=== PATIENT | male | born 1950 | race Caucasian/White ===

== ENCOUNTER → 2020-12-04 09:38 | Outpatient (CLI) | payer MEDICARE, SELFPAY ==
--- NOTE | ~2020-12-04 | US_ITS ---
EXAMINATION: US abdomen limited EXAM DATE: 12/04/2020 10:02 INDICATION: R94.5 - Abnormal results of liver function studies. TECHNIQUE: Multiple grayscale and Doppler images of the abdomen right upper quadrant were obtained (b y a technologist who performed the scan) and subsequently reviewed. Comparison is made to prior exami nation from 02/21/2012. FINDINGS: The pancreatic head and body are normal in appearance. The pancreatic tail is not visualized. Mildl y echogenic liver parenchyma, hepatic steatosis. There are no focal liver lesions identified. Ther e is no evidence of intrahepatic biliary duct dilation. Portal venous flow was seen in the hepatoped al, normal direction and has normal Doppler waveform. No right-sided hydronephrosis. Common bile duct measures 5 mm, which is normal. The gallbladder wall is normal in thickness, with ex pected amount of distention. No sonographic evidence of pericholecystic fluid. There is no cholelit hiases. Technologist performing exam reports patient did not demonstrate sonographic Acuña's sign. Please note that this sign is less reliable in patients who have received pain medication. IMPRESSION: 1. Hepatic steatosis. Reviewed, dictated and finalized at location B. MEL CANDY MAKER HELPER IMPRESSION: 1. Hepatic steatosis.
== END ==
PROVIDERS: PCP Family Medicine; Visit Provider Family Medicine
DX: K76.0 Fatty (change of) liver, not elsewhere classified (principal)
CPT/HCPCS: 76705

== ENCOUNTER 2021-03-15 07:45 | Outpatient (CLI) | payer MEDICARE, SELFPAY ==
--- NOTE | ~2021-03-15 | CT_ITS ---
EXAMINATION: CT abdomen pelvis w con EXAM DATE: 03/15/2021 08:39 INDICATION: Prostate cancer. TECHNIQUE: Spiral CT of the abdomen and pelvis was performed following intravenous injection of 100 m L Omnipaque 350. Axial, coronal and sagittal images of the abdomen and pelvis were reviewed. The do se-length product (DLP) for this examination was 896.83 mGy-cm. The exposure was tailored according to patient size (auto mA exposure control), and iterative reconstruction (ASIR) was used as additiona l dose reduction technique. There is no prior study for comparison. FINDINGS: There are a couple of mildly enlarged upper retroperitoneal lymph nodes, up to 1.2 x 1.3 cm . These could be reactive but there is possibility of metastatic disease or lymphoma. The liver, sple en, adrenal glands and pancreas are unremarkable. Gallbladder is unremarkable. No biliary obstructi on. Portal and splenic veins are patent. Kidneys enhance symmetrically. There is no hydronephrosis . There are 4 mm right nephrolithiasis, and 3 mm left nephrolithiasis. No ureteral stones. Prostate measures 5.7 cm in transverse dimension, moderately enlarged. The bladder is severely distended. Cons ider pre and post void pelvic sonogram. The bladder is unremarkable. Small bilateral inguinal fat-co ntaining hernias. The appendix is normal. There is extensive sigmoid, moderate descending colonic diverticulosis. Ther e is no adjacent inflammatory change to suggest diverticulitis. The stomach and small bowel are unrem arkable. There is expected amount of colonic stool. No free intraperitoneal gas. The heart is no rmal in size. There are no pericardial or pleural effusions. The lung bases are unremarkable. Ther e are no osteoblastic or osteolytic lesions identified. IMPRESSION: 1. Two mildly enlarged upper retroperitoneal lymph nodes could be reactive but metastatic disease or lymphoma not excludable. Attention to these on follow-up CT. 2. Severely distended bladder, consider pre and post void pelvic sonogram. 3. Moderate prostatomegaly. 4. Colonic diverticulosis. 5. Bilateral nephrolithiasis. 6. Small inguinal hernias. Reviewed, dictated and finalized at location A.
[2021-03-15 08:26] LABS: Estimated Glomerular Filt Rate > 60
== END 2021-03-15 07:46 | disposition home or self-care (01) ==
PROVIDERS: PCP Family Medicine; Visit Provider Urology
DX: C61 Malignant neoplasm of prostate (principal); N20.0 Calculus of kidney; K40.90 Unilateral inguinal hernia, without obstruction or gangrene, not specified as recurrent; K57.30 Diverticulosis of large intestine without perforation or abscess without bleeding
CPT/HCPCS: 74177; Q9967

== ENCOUNTER 2021-08-20 08:03 | Outpatient (CLI) | payer MEDICARE, SELFPAY ==
--- NOTE | ~2021-08-20 | MR_ITS ---
EXAMINATION: MR pelvis wo/w con DATE: 08/20/2021 09:31 INDICATION: Prostate cancer TECHNIQUE: Magnetic resonance imaging (MRI) of the pelvis was performed without and with 20 mL Multih ance intravenous contrast. Fullfield sequences of the pelvis included axial and coronal T2-weighted S S FSE, axial, sagittal and coronal 2D FIESTA, axial 2D FIESTA FS, axial SSFSE-IR LINDA, axial dual-echo T1-weighted FSPGR, axial and coronal T1 weighted LAVA, 3D axial T2 Cube, axial diffusion-weighted SE with apparent diffusion coefficient (ADC) maps. Postcontrast sequences included a time course axial T1-weighted LAVA and sagittal and coronal T1-weighted LAVA. COMPARISON: CT dated 03/15/2021 FINDINGS: Prostatomegaly measuring 6.1 x 3.7 x 5.1 cm with the intact-appearing peripheral capsule . There is a loculated collection of T2 hyperintense hydrocele positioned between the posterior margin of the pro state in the anterior margin of the rectum. This measures 5.4 cm craniocaudally, to 3.6 cm medial to lateral and 1.4 cm AP above level of the prostate tapering to a point at the inferior margin of the p rostate and measuring approximately 6 mm AP at the level of the midpoint of the prostate. No abnormal masses or pathologically enlarged lymphadenopathy in the visualized pelvis or inguinal regions. Bila teral small fat-containing inguinal hernias. Bladder is distended with minimal trabeculation along th e mucosal surface. Normal bone marrow signal throughout. IMPRESSION: 1. 5.4 x 3.6 x 1.4 cm collection of hydrocele located between the enlarged prostate in the anterior m argin of the rectum as detailed above. 2. No evident metastatic disease. Reviewed, dictated and finalized at location A. IMPRESSION: 1. 5.4 x 3.6 x 1.4 cm collection of hydrocele located between the enlarged pros liu in the anterior margin of the rectum as detailed above. 2. No evident metastatic disease.
[2021-08-20 08:34] LABS: Estimated Glomerular Filt Rate > 60
== END 2021-08-20 08:04 | disposition home or self-care (01) ==
LOC: ANHIMG 08:04
PROVIDERS: PCP Internal Medicine; Visit Provider Radiology Radiation Oncology
DX: C61 Malignant neoplasm of prostate (principal)
CPT/HCPCS: 72197; A9577

== ENCOUNTER 2022-05-24 08:21 | Outpatient (CLI) | payer MEDICARE, SELFPAY ==
[2022-05-24 09:07] LABS: Alanine Aminotransferase 117 U/L (6-50); Albumin Level 4.5 g/dL (3.5-5.1); Alkaline Phosphatase 63 U/L (38-126); Anion Gap 8 mmol/L (8-16); Aspartate Amino Transferase 88 U/L (17-59); Bilirubin,Total 1.2 mg/dL (0.2-1.3); Blood Urea Nitrogen 17 mg/dL (9-20); Calcium 9.4 mg/dL (8.4-10.2); Carbon Dioxide 29 mmol/L (22-30); Chloride 100 mmol/L (98-107); Cholesterol 223 mg/dL (0-200); Estimated Glomerular Filt Rate > 60; Glucose 110 mg/dL (65-110); HDL Direct 63 mg/dL; Potassium 4.6 mmol/L (3.4-5.0); Sodium 137 mmol/L (137-145); Triglycerides 125 mg/dL (<150)
[2022-05-24 09:18] LABS: LDL Cholesterol Direct 119 mg/dL
== END 2022-05-24 08:22 | disposition home or self-care (01) ==
LOC: ANHLAB 08:23
PROVIDERS: PCP Internal Medicine; Visit Provider Internal Medicine
DX: G40.909 Epilepsy, unspecified, not intractable, without status epilepticus (principal); Z13.6 Encounter for screening for cardiovascular disorders; R79.89 Other specified abnormal findings of blood chemistry; Z13.220 Encounter for screening for lipoid disorders; K75.81 Nonalcoholic steatohepatitis (NASH)
CPT/HCPCS: 36415; 80053; 80061; 80177; 82728

== ENCOUNTER 2023-03-14 00:41 | Day surgery (SDC) | payer MEDICARE, SELFPAY ==
[2023-03-03 10:48] VITALS: BMI 28.2
--- NOTE | 2023-03-13 13:41 | WPDANESEPPF ---
Anes - Initial Pre Proc Eval Procedure: Operation Date: 03/14/23 07:30 Proposed Procedures p Colonoscopy - Yonatan Duran MD Date/Time: 03/13/23 13:41 Surgeon: Yonatan Duran MD Pre Op Diagnosis: hx of prostate ca Patient Data Age: 72 Gender: M Height: 1.85 m Weight: 97 kg Allergies Allergy/AdvReac Type Severity Reaction Status Date / Time Penicillins Allergy Severe Anaphylactic Verified 03/14/23 06:24 Shock Home Medications Medication Instructions Recorded Confirmed Type diphenoxylate-atropine 2.5 1 tablet PO EVERY OTHER DAY 09/29/22 03/14/23 History mg-0.025 mg tablet lamotrigine 100 mg tablet 100 mg PO BID 03/03/23 03/14/23 History Patient hx anesthesia problems: none Family hx anesthesia problems: none Results Review: All pre-operative results and documents have been reviewed as part of the pre-operative evaluation. [facility] Past Medical History Medical History (Updated 01/26/23 @ 11:08 by Roger Burgos MD) Annual physical exam Elevated liver enzymes Encounter for general adult medical examination without abnormal findings Establishing care with new doctor, encounter for Hx of malignant neoplasm of prostate Immunization due BUSTOS (nonalcoholic steatohepatitis) Obesity (BMI 30.0-34.9) Prostate cancer Screening for colon cancer Screening for malignant neoplasm of colon Screening for malignant neoplasm of prostate Seizure disorder (~2016) Seizure disorder Family History Family History Mother Diabetes mellitus Sibling Family history of cardiovascular disease Father Family history of kidney disease Social History Social History (Updated 01/26/23 @ 09:02 by Abbie Langford, RT(R)) Smoking packs per day: 1 Smoking cigarettes per day: 20.0 Years smoked: 10 Smoking pack-years: 10.00 Smoking status: Former smoker Tobacco type: cigarettes Second hand tobacco smoke exposure: No Smoking end date: 10/30/76 Alcohol intake: current Drinks per week: 3 Alcohol use details: rare Substance use: never Substance use type: does not use Living arrangements: with family Occupation/Education: retired Additional occupation/education comments: [employer] work Gender identity (if verbalized by the patient): Male Spiritual care concerns: No Agree to blood products: Yes Anes - Eval Final PreProcedure Day of Procedure 03/13/23 13:41 Patient weight: overweight Heart: regular rate and rhythm Lungs: clear to auscultation and normal air movement Airway: Mallampati scale class II Neurological: alert and oriented Last oral intake: >/= 8 hours ASA classification: III Emergent: no Anesthetic plan: proceed Anesthesia type and monitoring: general GIVS Results Review: All pre-operative results and documents have been reviewed as part of the pre-operative evaluation. Informed Consent: The patient's anesthetic plan and its attendant risks and benefits were discussed with the patient/family/POA. Questions were solicited and answers provided to the satisfaction of the patient/family/POA.
[2023-03-14 06:25] VITALS: BP 145/81; PULSE 70; RESP 16; TEMP 36.4; O2SAT 100; BMI 27.8
[2023-03-14] MEDS: LACTATED RINGERS 1,000 ML 150 ML IV CONT (06:34)
--- NOTE | 2023-03-14 07:44 | PM.HPGS ---
History of Present Illness History of Present Illness Consent: Risks, benefits, and alternatives have been discussed and questions answered. Patient agrees to proceed with procedure. Chief complaint: hx of prostate ca Narrative: Yang Rosado is a 72 year old male Presents for screening colonoscopy. Patient reports prior colonoscopy 10 years ago showed a benign hyperplastic colon polyp. Patient has a history of prostate cancer with radiation therapy 2 years ago. He did have loose stools. This apparently controlled with Lomotil 1 tab p.o. daily. Patient denies any bleeding. Patient's family history noncontributory. Past medical history is significant for stage fatty liver for which she is followed at [facility] hepatology. Patient has a history of seizure disorder which is stable. Family history is noncontributory. Review of Systems Review of Systems: Review of systems noncontributory. [facility] Past Medical History Medical History (Updated 01/26/23 @ 11:08 by Roger Burgos MD) Annual physical exam Elevated liver enzymes Encounter for general adult medical examination without abnormal findings Establishing care with new doctor, encounter for Hx of malignant neoplasm of prostate Immunization due BUSTOS (nonalcoholic steatohepatitis) Obesity (BMI 30.0-34.9) Prostate cancer Screening for colon cancer Screening for malignant neoplasm of colon Screening for malignant neoplasm of prostate Seizure disorder (~2015) Seizure disorder Family History Family History Mother Diabetes mellitus Sibling Family history of cardiovascular disease Father Family history of kidney disease Social History Social History (Updated 01/26/23 @ 09:02 by Abbie Langford, RT(R)) Smoking packs per day: 1 Smoking cigarettes per day: 20.0 Years smoked: 10 Smoking pack-years: 10.00 Smoking status: Former smoker Tobacco type: cigarettes Second hand tobacco smoke exposure: No Smoking end date: 10/30/76 Alcohol intake: current Drinks per week: 3 Alcohol use details: rare Substance use: never Substance use type: does not use Living arrangements: with family Occupation/Education: retired Additional occupation/education comments: [employer] work Gender identity (if verbalized by the patient): Male Spiritual care concerns: No Agree to blood products: Yes Meds Home Medications and Allergies Home Medications Medication Instructions Recorded Confirmed Type diphenoxylate-atropine 2.5 1 tablet PO EVERY OTHER DAY 09/29/22 03/14/23 History mg-0.025 mg tablet lamotrigine 100 mg tablet 100 mg PO BID 03/03/23 03/14/23 History Allergies Allergy/AdvReac Type Severity Reaction Status Date / Time Penicillins Allergy Severe Anaphylactic Verified 03/14/23 06:24 Shock Vital Signs Vital Signs - 24 hr 03/14/23 06:25 Temperature 97.5 F L Pulse Rate 70 Respiratory Rate 16 Blood Pressure 145/81 H Pulse Oximetry 100 Oxygen Delivery Room Air Exam Narrative: Physical exam reveals patient to be alert. Vital signs stable. HEENT exam is unremarkable. Patient is anicteric. Lungs are clear to auscultation and percussion. Heart is without murmur or extra sounds. Abdomen bowel sounds present soft nontender with no hepatosplenomegaly. Digital external rectal exam is normal. Assessment and Plan Assessment and plan (1) Screening for colon cancer: Code(s): Z12.11 - Encounter for screening for malignant neoplasm of colon Status: Acute Assessment and Plan: Patient presents for screening colonoscopy. He has been 10 years since last exam. Patient does have a history of prostate cancer with radiation and subsequent loose stools attributed to this. Currently controlled with 1 Lomotil a day. Under the direction of Urology. Distant history of colon polyp 10 years ago was benign aside from 1 arielle
[2023-03-14 07:47] VITALS: BP 123/70; PULSE 60; RESP 20; O2SAT 98
[2023-03-14 07:57] VITALS: BP 124/75; PULSE 57; RESP 19; O2SAT 100
[2023-03-14 08:07] VITALS: BP 129/72; PULSE 57; RESP 24; O2SAT 100
--- NOTE | 2023-03-14 08:26 | SUR.PHASEII ---
Discharge delayed due to ride issues.
== END 2023-03-14 08:25 | disposition home or self-care (01) ==
PROVIDERS: PCP Internal Medicine; Visit Provider Internal Medicine Gastroenterology
PROC: 0DJD8ZZ Inspection of Lower Intestinal Tract, Via Natural or Artificial Opening Endoscopic (ICD-10-PCS; CPT 45378; principal; 2023-03-14 07:30)
DX: Z12.11 Encounter for screening for malignant neoplasm of colon (principal); K64.8 Other hemorrhoids; K57.30 Diverticulosis of large intestine without perforation or abscess without bleeding; K62.89 Other specified diseases of anus and rectum; Z85.46 Personal history of malignant neoplasm of prostate; K75.81 Nonalcoholic steatohepatitis (NASH); G40.909 Epilepsy, unspecified, not intractable, without status epilepticus; Z87.891 Personal history of nicotine dependence
CPT/HCPCS: G0121; J2704; J7120

== ENCOUNTER 2023-07-04 10:46 | Emergency (ER) | payer MEDICARE, SELFPAY ==
[2023-07-04 10:40] VITALS: BP 201/85; PULSE 23; RESP 23; TEMP 36.7; O2SAT 94
[2023-07-04] MEDS: LORazepam INJ (*CRX) 2 MG/ML VIAL IM (10:52)
[2023-07-04] MEDS: HALOPERIDOL LACTATE 5 MG/ML VIAL IM (10:52)
[2023-07-04 11:15] VITALS: BP 164/85; PULSE 123; RESP 20; O2SAT 97
--- NOTE | 2023-07-04 11:15 | PC.NURSE ---
pts at bedside upset that pt is restrained. pt remains thrashing on bed. continues rambling speech. remains unable to answer simple questions. charge nurse at bedside.
[2023-07-04 12:06] LABS: Basophils Absolute Auto 0.1 K/mm3 (0.0-0.1); Basophils Percent Auto 1.3 % (0.2-1.2); Eosinophils Percent Auto 0.3 % (0-4.4); Hematocrit 42.3 % (42.0-52.0); Hemoglobin 14.4 g/dL (14.0-18.0); Immature Granulocyte Absolute 0.03 K/mm3 (0.00-0.031); Immature Granulocyte Percent A 0.4 % (0-0.5); Lymphocytes Absolute Auto 0.99 K/mm3 (0.9-3.2); Lymphocytes Percent Auto 13.1 % (18.3-44.2); Mean Corpuscular Volume 96.8 fl (80-100); Mean Platelet Volume 9.5 fl (7.4-10.4); Monocytes Absolute Auto 0.8 K/mm3 (0.1-0.6); Monocytes Percent Auto 10.6 % (2.6-8.5); Neutrophils Absolute Auto 5.6 K/mm3 (1.3-6.7); Neutrophils Percent Auto 74.3 % (45.5-73.1); Platelet Count Result 153 k/mm3 (150-375); Red Blood Count 4.37 M/mm3 (4.6-6.20); Red Cell Distribution Width 12.5 % (11.5-14.5); White Blood Count 7.6 K/mm3 (4.5-10.0)
[2023-07-04 12:19] LABS: Albumin Level 4.4 g/dL (3.5-5.1); Alkaline Phosphatase 69 U/L (38-126); Anion Gap 12 mmol/L (8-16); Aspartate Amino Transferase 97 U/L (17-59); Bilirubin,Total 1.2 mg/dL (0.2-1.3); Blood Urea Nitrogen 21 mg/dL (9-20); Calcium 9.1 mg/dL (8.4-10.2); Carbon Dioxide 21 mmol/L (22-30); Chloride 103 mmol/L (98-107); Creatine Kinase 401 U/L (55-170); Estimated CRCL calculation 81 ml/min; Estimated Glomerular Filt Rate > 60; Glucose 160 mg/dL (65-110); Magnesium 2.3 mg/dL (1.6-2.3); Potassium 4.8 mmol/L (3.4-5.0); Sodium 136 mmol/L (137-145)
--- NOTE | 2023-07-04 12:19 | ED.AMS ---
HPI - Altered Mental Status General Chief Complaint: Altered Mental Status Stated Complaint: seizures, combative Time Seen by Provider: 07/04/23 10:56 History of Present Illness HPI narrative: HPI limited due to patient's altered mental status This is a 72-year-old male, with past history of seizure disorder on lamotrigine, brought in by EMS for seizure-like activity and altered mental status. EMS reports the patient had a seizure at home. He had a recent change in his lamotrigine dose. The patient was reportedly combative with EMS. Blood glucose reported at home 101. Related Data Home Medications Medication Instructions Recorded Confirmed diphenoxylate-atropine 2.5 1 tablet PO EVERY OTHER DAY 09/29/22 06/08/23 mg-0.025 mg tablet lamotrigine 100 mg tablet 100 mg PO BID 03/03/23 06/08/23 Allergies Allergy/AdvReac Type Severity Reaction Status Date / Time Penicillins Allergy Severe Anaphylactic Verified 06/08/23 09:54 Shock Review of Systems Review of Systems: Unable to obtain review of systems due to altered mental status PMFSH Past Medical History Medical History Annual physical exam Elevated liver enzymes Encounter for general adult medical examination without abnormal findings Establishing care with new doctor, encounter for Hx of malignant neoplasm of prostate Immunization due Impacted cerumen of both ears BUSTOS (nonalcoholic steatohepatitis) Obesity (BMI 30.0-34.9) Prostate cancer Screening for colon cancer Screening for malignant neoplasm of colon Screening for malignant neoplasm of prostate Seizure disorder (~2015) Seizure disorder Family History Family History Mother Diabetes mellitus Sibling Family history of cardiovascular disease Father Family history of kidney disease Social History Social History Social History: Caffeine-coffee daily Smoking packs per day: 1 Smoking cigarettes per day: 20.0 Years smoked: 10 Smoking pack-years: 10.00 Smoking status: Former smoker Tobacco type: cigarettes Second hand tobacco smoke exposure: No Smoking end date: 10/30/76 Alcohol intake: current Alcohol use details: rare Substance use: never Substance use type: does not use Lack of Transportation: No Lack of Food: Never True Current Housing: I Have Housing Concerned About Future Housing: No Difficulty Paying Gas/Electric Bills: No Difficulty Paying for Meds: No Currently Unemployed: No Education: High School Diploma/GED Difficulty w/ Childcare or Family Care: No Living arrangements: with family Occupation/Education: retired Additional occupation/education comments: [employer] work Gender identity (if verbalized by the patient): Male Spiritual care concerns: No Agree to blood products: Yes Exam Narrative: GENERAL: Well-developed, well-nourished, combative HEAD: Normocephalic, atraumatic. EYES: PERRLA and EOMI. ENT: Nares clear, no rhinorrhea or epistaxis. Mucous membranes moist. Oropharynx without tonsillar hypertrophy exudate or other lesions. CHEST: Clear to auscultation. No respiratory distress. No wheezes rales or rhonchi HEART: Tachycardic and regular rhythm. No murmur heard. Normal peripheral pulses. ABDOMEN: Soft, nontender, nondistended, normal active bowel sounds. EXTREMITIES: Normal range of motion. No edema. SKIN: Warm, dry, no rash. NEURO: Alert, oriented to self, agitated. Moving all 4 limbs purposefully. PSYCH: Agitated and combative Course Course Emergency Course: 15:01 - Chemistries within normal limits with sodium of 136. CBC unremarkable. After Haldol and Ativan, the patient is no longer combative and is oriented x3. Creatinine kinase elevated to 401. The patient was given IV fluids. He was given Keppra and lamotrigine. Will
[2023-07-04 12:25] LABS: Alanine Aminotransferase 99 U/L (6-50)
[2023-07-04] MEDS: SODIUM CHLORIDE 0.9% IV 1,000 ML 999 ML IV CONT (12:32)
--- NOTE | 2023-07-04 13:00 | PC.NURSE ---
pt resting quietly on stretcher with and son at bedside. no distress noted. pt provided with warm blanket and room darkened for comfort.
[2023-07-04 16:11] VITALS: PULSE 88; RESP 16; O2SAT 96
[2023-07-06 14:28] LABS: Lamotrigine Lamictal 4.1 mcg/mL (2.5-15.0)
== END 2023-07-04 16:13 | disposition home or self-care (01) ==
PROVIDERS: Emergency Provider Preventive Medicine Aerospace Medicine; PCP Emergency Medicine
DX: R56.9 Unspecified convulsions (principal); R94.4 Abnormal results of kidney function studies; Z87.891 Personal history of nicotine dependence
CPT/HCPCS: 36415; 80053; 80175; 82550; 83735; 85025; 96361; 96372; 96374; 99284; J1630; J1953; J2060; J7030

== ENCOUNTER 2023-12-06 06:56 | Outpatient (CLI) | payer MEDICARE, SELFPAY ==
--- NOTE | ~2023-12-06 | XR_ITS ---
EXAMINATION: XR hip LT min 2V INDICATION: Left hip pain TECHNIQUE: Two views of the left hip are obtained. COMPARISON: None available FINDINGS: Bone alignment is normal. There is no fracture. There is mild osteoarthritis of the hip. Th e femoral head is well-seated in the acetabulum. IMPRESSION: 1. Mild osteoarthritis. Reviewed, dictated and finalized at location B. ASSESSOR IMPRESSION: 1. Mild osteoarthritis.
--- NOTE | ~2023-12-06 | XR_ITS ---
EXAMINATION: XR lumbar spine 2-3V DATE: 12/06/2023 07:27 INDICATION: Low back pain with sciatica TECHNIQUE: Anteroposterior and lateral views of the lumbar spine, and cone-down lateral view of the l umbosacral junction were obtained. COMPARISON: 03/15/2021 FINDINGS: The lumbar vertebral body heights and alignment are maintained. There is mild loss of inter vertebral disc space height at L5-S1. No lumbar spine fracture is identified. There is cortical irreg ularity at the anterior/inferior aspect of the S1 vertebral body. IMPRESSION: 1. Mild lumbar spondylosis. 2. Possible minimally displaced fracture at S1. Consider further evaluation with CT or MRI. Reviewed, dictated and finalized at location B. SETTER IMPRESSION: 1. Mild lumbar spondylosis. 2. Possible minimally displaced fracture at S1. Consider further evaluation wit h CT or MRI.
== END 2023-12-06 06:57 | disposition home or self-care (01) ==
PROVIDERS: PCP Nurse Practitioner Family; Visit Provider Nurse Practitioner Family
DX: M54.42 Lumbago with sciatica, left side (principal); M43.06 Spondylolysis, lumbar region; M16.12 Unilateral primary osteoarthritis, left hip
CPT/HCPCS: 72100; 73502

== ENCOUNTER 2023-12-17 07:28 | Outpatient (CLI) | payer MEDICARE, SELFPAY ==
--- NOTE | ~2023-12-17 | MR_ITS ---
MRI of the lumbar spine Clinical History: Sacral fracture Technique: Axial T2-weighted images, and sagittal T1-weighted, T2-weighted, and T2 fat-sat images wer e acquired. Findings: Lumbar vertebral bodies maintain normal height and alignment. There are probable bilateral sacral insufficiency fractures with extension across the midline sacrum at the S1 and S2 levels. At L1-L2, there is minimal disc bulge and mild facet arthropathy. No central canal stenosis or neural foraminal narrowing. At L2-L3, there is minimal disc bulge and mild facet arthropathy. No central canal stenosis or neural foraminal narrowing. At L3-L4, there is mild disc bulge and mild to moderate facet arthropathy. No central canal stenosis or definite neural foraminal narrowing. At L4-L5, there is mild disc bulge and mild to moderate facet arthropathy. No central canal stenosis. There is mild bilateral neural foraminal narrowing. At L5-S1, there is disc bulge and mild to moderate facet arthropathy. No central canal stenosis or de finite neural foraminal narrowing. Paravertebral soft tissues are unremarkable. Impression: H-shaped insufficiency fractures of the sacrum, as detailed above. Minimal lumbar degenerative spondylosis. Reviewed, dictated and finalized at [facility]. TRUSS BUILDER Impression: H-shaped insufficiency fractures of the sacrum, as detailed above. Minimal lumbar degenerative spondylosis.
== END 2023-12-17 07:29 | disposition home or self-care (01) ==
PROVIDERS: PCP Nurse Practitioner Family; Visit Provider Nurse Practitioner Family
DX: S32.10XA Unspecified fracture of sacrum, initial encounter for closed fracture (principal); X58.XXXA Exposure to other specified factors, initial encounter
CPT/HCPCS: 72148

== ENCOUNTER 2024-01-08 10:00 | Outpatient (RCR) | payer MEDICARE, SELFPAY ==
--- NOTE | 2023-12-12 15:04 | OPREHPOC ---
Outpatient Therapy Plan of Care This is a Multidisciplinary Plan of Care that may contain components documented by all disciplines (PT, OT, and ST.) PT Problem 1 PT Problem #1 Knowledge Deficit PT Goal 1 Goal Pt to be IND with issued HEP Target Visit 8 PT Problem 2 PT Problem #2 Pain PT Goal 1 Goal Pt to report back pain no greater than 3/10 in the last week. Target Visit 8 PT Goal 2 Goal Pt to report 75% improvement in overall symptoms. Target Visit 8 PT Problem 3 PT Problem #3 Impaired Sensation PT Goal 1 Goal Pt to decline radicular symptoms in the last week. Target Visit 8 PT Problem 4 PT Problem #4 Impaired Gait PT Goal 1 Goal Pt to ambulate on level ground without the need for an AD Target Visit 8 PT Goal 2 Goal Pt to improve 2 min walk distance from 380ft to 450ft. Target Visit 8 PT Problem 5 PT Problem #5 Impaired Strength PT Goal 1 Goal Pt to improve hip abduction strength to 3+/5 Target Visit 8
--- NOTE | 2023-12-12 15:04 | PTOPEVAL1 ---
Assessment and note entered by Lauro Crooks, PT, DPT Evaluation Information Assessment Status Evaluation Diagnosis L sided lumbar radiculopathy Onset 2 weeks Subjective Information Pt states 2 weeks ago he gradually started to get pain, numbness, and tingling down the back of his L leg. Pt reports he is having difficultly driving , getting in/out of the shower, getting dressed, putting shoes on, and sitting for any period of time. Pt stands throughout evaluation. Reported Pain Level Pain Score 8: Self Report Assessment PT Clinical Summary Yang presents to therapy today for his initial evaluation with a diagnosis of L sided lumbar radiculopathy. Today he demonstrates symptoms consistent with L sided piriformis syndrome including a positive slump test, tenderness to palpation on the piriformis muscle belly, and weakness of the hip abductors. He ambulates with an antalgic pattern and with lumbar extension to limit neural tension. Skilled therapy services are indicated to address the deficits noted above, to manage pain, to improve gait pattern, and to return to PLOF without limitations. Plan of Care Interventions Electrical Stimulation,Gait Training,Hot Pack/Cold Pack,Manual Therapy,Neuro Re-education,Patient/ Caregiver Educati,Therapeutic Activities, Therapeutic Exercise PT Services Indicated Yes Treatment Frequency and 2x/wk for 8 visits Duration These treatments will address the objective and functional deficits as defined above. The patient will be advanced safely and appropriately in order for the patient to progress towards his/her prior level of function. Additional exercises will be introduced and as well as a comprehensive home exercise program upon discharge, if needed, ?to ensure carryover of functional gains achieved in the clinic. This treatment plan has been reviewed and agreement upon by the patient.
--- NOTE | 2023-12-29 08:25 | PCPTNOTE ---
Patient no showed to appointment this date. Called and spoke with patient who states he didn't know he had an appointment. Confirmed future appointment on december 31 at 10:15 with patient.
--- NOTE | 2024-01-03 08:39 | PCPTNOTE ---
Patient left messege to cancel, no reason given.
--- NOTE | 2024-01-08 12:57 | PTOPPROG ---
Assessment and note entered by Lauro Crooks, PT, DPT Evaluation Information Assessment Status Progress Diagnosis L sided lumbar radiculopathy Onset 2 weeks Subjective Information Pt states overall things are going a lot better than expected. He has not had to take any pain medication for the last 2 days and has been good so far. Pt states he has been able to do 3, 1 mile walks in the last week. He states his distance driving does not seem limited. Pt reports pain more isolated to his L hamstring. He states he is no longer getting consistent pain. Assessment PT Clinical Summary Yang presents to therapy today for his progress report following 6 visits of skilled therapy to treat his diagnosis of L sided lumbar radiculopathy. Today he demonstrates improved LE strength, improved flexibility, decreased tenderness to palpation, and approximation of radicular symptoms. He continues to require cues for posture and movement mechanics. His HEP was progressed this date and extensive time was spent on body mechanics. Pt would like to complete HEP IND for a month and see how it goes. States he will follow up if needed. Plan of Care Interventions Electrical Stimulation,Gait Training,Hot Pack/Cold Pack,Manual Therapy,Neuro Re-education,Patient/ Caregiver Educati,Therapeutic Activities, Therapeutic Exercise PT Services Indicated Yes Treatment Frequency and follow up in 1 month if needed, discharge if not Duration These treatments will address the objective and functional deficits as defined above. The patient will be advanced safely and appropriately in order for the patient to progress towards his/her prior level of function. Additional exercises will be introduced and as well as a comprehensive home exercise program upon discharge, if needed, ?to ensure carryover of functional gains achieved in the clinic. This treatment plan has been reviewed and agreement upon by the patient.
--- NOTE | 2024-02-12 12:39 | PTOPDC ---
Assessment and note entered by Lauro Crooks, PT, DPT Evaluation Information Assessment Status Discharge - Pt Not Present Diagnosis L sided lumbar radiculopathy Onset 2 weeks Subjective Information Called pt to follow up, he states his pain is still doing much better. He states his sensation continues to improve but is not 100% better yet. Pt declines a further need for therapy. Assessment PT Clinical Summary Yang complete 5 visits of skilled therapy from to 01/01/24. He is doing well and will be discharged at this time. If he needs additional therapy at a later date he would need a new order.
== END 2024-02-26 09:03 | disposition home or self-care (01) ==
LOC: ANHGOSHPT 10:00
PROVIDERS: PCP Nurse Practitioner Family; Visit Provider Nurse Practitioner Family
DX: M54.42 Lumbago with sciatica, left side (principal)
CPT/HCPCS: 97014; 97110; 97116; 97140; 97161; 97530; 99199; G0283

== ENCOUNTER 2024-03-03 02:55 | Observation (INO) | payer MEDICARE, SELFPAY ==
[2024-03-03] VITALS (9 sets, daily range): BP systolic 114–154; BP diastolic 71–86; PULSE 73–98; RESP 15–20; TEMP 35.7–37.1; O2SAT 91–100; BMI 28.0
--- NOTE | ~2024-03-03 | CT_ITS ---
EXAMINATION: CT abdomen pelvis w con DATE: 03/03/2024 04:15 INDICATION: Rectal bleeding. Left lower quadrant abdominal pain. TECHNIQUE: Computed tomography (CT) of the abdomen and pelvis was performed with 100 mL Omnipaque 350 intravenous contrast. Automated exposure control and iterative reconstruction technique were employe d. The dose-length product was 790.80 mGy-cm. COMPARISON: CT abdomen and pelvis 03/15/2021 FINDINGS: The visualized portions of the lung bases demonstrate mild atelectasis. No pleural effusion . The heart size is normal. There are coronary artery calcifications. No pericardial effusion. Paraes ophageal varices are noted. There are paraumbilical varices. The liver and spleen are normal. The gal lbladder is normal in size. The pancreas and adrenal glands are normal. There is a 5 mm stone in righ t kidney. There is a 5 mm stone in left kidney. There is an umbilical hernia containing fat. The blad beth is distended. The prostate is moderately enlarged. There are brachytherapy seeds in the prostate. There are bilateral inguinal hernias containing fat. There is diverticulosis of the colon without ev idence of diverticulitis. The appendix is normal. There are no pathologically enlarged lymph nodes. T here is no free intraperitoneal fluid. There are healing sacral insufficiency fractures. There is mil d lumbar spondylosis. IMPRESSION: 1. Portal venous hypertension. 2. Umbilical hernia containing fat. 3. Bilateral inguinal hernias containing fat. Reviewed, dictated and finalized at location A.
[2024-03-03 03:41] LABS: Basophils Absolute Auto 0.1 K/mm3 (0.0-0.1); Basophils Percent Auto 2.2 % (0.2-1.2); Eosinophils Absolute Auto 0.3 K/mm3 (0-0.3); Eosinophils Percent Auto 6.3 % (0-4.4); Hematocrit 41.4 % (42.0-52.0); Hemoglobin 14.3 g/dL (14.0-18.0); Immature Granulocyte Absolute 0.02 K/mm3 (0.00-0.031); Immature Granulocyte Percent A 0.4 % (0-0.5); Lymphocytes Absolute Auto 1.32 K/mm3 (0.9-3.2); Lymphocytes Percent Auto 29.5 % (18.3-44.2); Mean Corpuscular HGB Conc 34.5 g/dl (32-36); Mean Corpuscular Hemoglobin 32.6 pg (26-34); Mean Corpuscular Volume 94.3 fl (80-100); Mean Platelet Volume 9.7 fl (7.4-10.4); Monocytes Absolute Auto 0.8 K/mm3 (0.1-0.6); Monocytes Percent Auto 16.7 % (2.6-8.5); Neutrophils Percent Auto 44.9 % (45.5-73.1); Platelet Count Result 167 k/mm3 (150-375); Red Blood Count 4.39 M/mm3 (4.6-6.20); Red Cell Distribution Width 13.2 % (11.5-14.5); White Blood Count 4.5 K/mm3 (4.5-10.0)
[2024-03-03] MEDS: SODIUM CHLORIDE 0.9% IV 1,000 ML 999 ML IV CONT (03:50)
[2024-03-03 03:51] LABS: Alanine Aminotransferase 66 U/L (6-50); Albumin Level 4.4 g/dL (3.5-5.1); Alkaline Phosphatase 74 U/L (38-126); Anion Gap 10 mmol/L (4-12); Aspartate Amino Transferase 57 U/L (17-59); Bilirubin,Total 0.6 mg/dL (0.2-1.3); Blood Urea Nitrogen 17 mg/dL (9-20); Calcium 9.4 mg/dL (8.4-10.2); Carbon Dioxide 22 mmol/L (22-30); Chloride 108 mmol/L (98-107); Estimated CRCL calculation 82 ml/min; Estimated Glomerular Filt Rate > 60; Glucose 140 mg/dL (65-110); Potassium 4.1 mmol/L (3.4-5.0); Prothrombin Time 13.7 Seconds (11.1-14.7); Sodium 140 mmol/L (137-145)
[2024-03-03 03:52] LABS: Partial Thromboplastin Time 29.4 Seconds (22.3-36.8)
--- NOTE | 2024-03-03 04:44 | ED.GENADULT ---
HPI - General Adult General Chief complaint: GI Bleed Stated complaint: rectal bleeding Time Seen by Provider: 03/03/24 03:29 History of Present Illness HPI narrative: Patient 73-year-old gentleman who presents emergency department with chief complaint of rectal bleeding. Patient reports this evening he noticed that he started having bright red blood per rectum reports no real discomfort through his abdomen reports that it was bright red blood and did have some stool in it as well patient does not really straining hard reports of not having nausea vomiting denies being on blood thinners. Related Data Home Medications Medication Instructions Recorded Confirmed lamotrigine 100 mg tablet 100 mg PO BID 03/03/23 12/07/23 Allergies Allergy/AdvReac Type Severity Reaction Status Date / Time Penicillins Allergy Severe Anaphylactic Verified 12/07/23 12:12 Shock Review of Systems Review of Systems: A 10 system review of systems was completed on the patient and is negative except for what is stated in the HPI. Nursing and ancillary documentation was reviewed. [facility] Past Medical History Medical History Annual physical exam Elevated liver enzymes Encounter for general adult medical examination without abnormal findings Establishing care with new doctor, encounter for Hx of malignant neoplasm of prostate Immunization due Impacted cerumen of both ears BUSTOS (nonalcoholic steatohepatitis) Obesity (BMI 30.0-34.9) Prostate cancer Screening for colon cancer Screening for malignant neoplasm of colon Screening for malignant neoplasm of prostate Seizure disorder (~2015) Seizure disorder Family History Family History Mother Diabetes mellitus Sibling Family history of cardiovascular disease Father Family history of kidney disease Social History Social History Social History: Caffeine-coffee daily Smoking packs per day: 1 Smoking cigarettes per day: 20.0 Years smoked: 10 Smoking pack-years: 10.00 Smoking status: Former smoker Tobacco type: cigarettes Second hand tobacco smoke exposure: No Smoking end date: 10/30/76 Alcohol intake: current Alcohol use details: rare Substance use: never Substance use type: does not use Lack of Transportation: No Lack of Food: Never True Current Housing: I Have Housing Concerned About Future Housing: No Difficulty Paying Gas/Electric Bills: No Difficulty Paying for Meds: No Currently Unemployed: No Education: High School Diploma/GED Difficulty w/ Childcare or Family Care: No Living arrangements: with family Occupation/Education: retired Additional occupation/education comments: [employer] work Gender identity (if verbalized by the patient): Male Spiritual care concerns: No Agree to blood products: Yes Exam Narrative: GENERAL: Well-appearing, well-nourished, and in no acute distress. HEAD: Normocephalic, atraumatic. EYES: PERRLA and EOMI. ENT: Nares clear, no rhinorrhea or epistaxis. Mucous membranes moist. NECK: Supple. CHEST: Clear to auscultation. No respiratory distress. HEART: Regular rate and rhythm. No murmur heard. Normal peripheral pulses. ABDOMEN: Soft, nontender, nondistended, normal active bowel sounds. : Stool is black and there is melanotic stool mixed on rectal exam EXTREMITIES: Normal range of motion. No edema. SKIN: Warm, dry, no rash. NEURO: No focal deficits. Alert and oriented x3. PSYCH: Normal mood and affect. Course Vital Signs Vital signs: Vital Signs Pulse Rate 88 03/03/24 03:48 Respiratory Rate 17 03/03/24 03:48 Blood Pressure 144/75 H 03/03/24 03:48 Pulse Oximetry 100 03/03/24 03:48 Pulse Rate 82 03/03/24 06:56 Respiratory Rate 15 03/03/24 06:56 Blood Pressure 15
[2024-03-03 04:46] LABS: Lactic Acid Reflex 0.9 mmol/L (0.7-2.0)
[2024-03-03 04:58] LABS: Procalcitonin 0.1 ng/mL
[2024-03-03 07:21] LABS: Hematocrit 43.2 % (42.0-52.0); Hemoglobin 14.7 g/dL (14.0-18.0)
[2024-03-03] MEDS: PANTOPRAZOLE SODIUM IV 40 MG VIAL IV PUSH (09:13)
--- NOTE | 2024-03-03 09:59 | PM.IMHP ---
H&P: HPI History of Present Illness Date/Time: 03/03/24 09:59 Chief Complaint: GI bleeding Narrative: Patient 73-year-old gentleman with PMH elevated liver enzymes, h/o prostate ca, MASLD,, obesity, seizure, smoker admitted from emergency department with chief complaint of rectal bleeding.? Patient reports this evening he noticed that he started having bright red blood per rectum reports no real discomfort through his abdomen reports that it was bright red blood and did have some stool in it as well patient does not really straining hard reports of not having nausea vomiting denies being on blood thinners. Review of Systems Constitutional: Constitutional: Denies body ache(s) and Denies chills ENT: Reports Normal hearing present Cardiovascular: Cardiovascular: Denies chest pain and Denies diaphoresis Respiratory: Respiratory: Denies chest congestion and Denies cough Gastrointestinal: Gastrointestinal: Reports hematochezia Musculoskeletal: Musculoskeletal: Denies back pain Neurologic: Comments: h/o seizures- on lamotrigine. last seizure was june 2023 when he missed couple of doses of medication Psychiatric: Psychiatric: Denies anxiety and Denies behavioral changes [facility] Past Medical History Medical History (Updated 03/03/24 @ 12:30 by German Greco MD) Annual physical exam Colon, diverticulosis Elevated liver enzymes Encounter for general adult medical examination without abnormal findings Establishing care with new doctor, encounter for Hemorrhoid Hx of malignant neoplasm of prostate Immunization due Impacted cerumen of both ears BUSTOS (nonalcoholic steatohepatitis) Obesity (BMI 30.0-34.9) Prostate cancer Screening for colon cancer Screening for malignant neoplasm of colon Screening for malignant neoplasm of prostate Seizure disorder (~2015) Seizure disorder Family History Family History Mother Diabetes mellitus Sibling Family history of cardiovascular disease Father Family history of kidney disease Social History Social History Social History: Caffeine-coffee daily Smoking packs per day: 1 Smoking cigarettes per day: 20.0 Years smoked: 10 Smoking pack-years: 10.00 Smoking status: Former smoker Tobacco type: cigarettes Second hand tobacco smoke exposure: No Smoking end date: 10/30/76 Alcohol intake: current Drinks per week: 3 Alcohol use details: rare Substance use: former Substance use type: does not use Last use: 01/02/24 Do You Feel Safe in your Home?: Yes Lack of Transportation: No Lack of Food: Never True Current Housing: I Have Housing Concerned About Future Housing: No Difficulty Paying Gas/Electric Bills: No Difficulty Paying for Meds: No Currently Unemployed: No Education: Don't Know Difficulty w/ Childcare or Family Care: No Living arrangements: with family Occupation/Education: retired Additional occupation/education comments: [employer] work Gender identity (if verbalized by the patient): Male Spiritual care concerns: No Agree to blood products: Yes Meds Home Medications and Allergies Home Medications Medication Instructions Recorded Confirmed Type lamotrigine 100 mg tablet 100 mg PO BID 03/03/23 03/03/24 History Allergies Allergy/AdvReac Type Severity Reaction Status Date / Time Penicillins Allergy Severe Anaphylactic Verified 03/03/24 10:50 Shock Vital Signs Vital Signs - 24 hr 03/03/24 03:48 03/03/24 06:56 03/03/24 08:29 Temperature Pulse Rate 88 82 73 Respiratory Rate 17 15 17 Blood Pressure 144/75 H 154/86 H 150/86 H Pulse Oximetry 100 100 98 03/03/24 09:53 Temperature 98.8 F Pulse Rate 85 Respiratory Rate 18 Blood Pressure 133/76 Pulse Oximetry 95 Exam Const: General: comfortable; No no acute distress or in distress
--- NOTE | 2024-03-03 10:36 | ADMGEN ---
This patient, Yang Rosado, was admitted to [facility] Surg Room 315-01. Patient/family oriented to hospital policies and general routines including ID bracelet, bed and alarms, visiting hours, pain management, procedures, bathroom and other care routines, personal items, smoking policy, room service/diet, and visiting hours. Information on how to activate the Rapid Response Team has been discussed. Patient/Family are encouraged to report perceived risks to care and to ask questions if they do not understand what they are told or what they should do. Report from Hailey in the ER.
[2024-03-03] MEDS: SODIUM CHLORIDE 0.9% IV 1,000 ML 100 ML IV CONT ×2 (11:28→20:33)
--- NOTE | 2024-03-03 12:23 | WPDGICN ---
Assessment and Plan Assessment and plan (1) Acute lower gastrointestinal bleeding: Code(s): K92.2 - Gastrointestinal hemorrhage, unspecified Status: Acute Assessment and Plan: differential could be perianal from hemorrhoids, also has radiation proctitis, diverticulosis in colonoscopy last year h/h normal but monitor for more signs of bleeding (2) Hx of malignant neoplasm of prostate: Code(s): Z85.46 - Personal history of malignant neoplasm of prostate Status: Acute Assessment and Plan: h/o proctitis- assess with colonoscopy denies abdominal pain (3) Abnormal liver function test: Code(s): R94.5 - Abnormal results of liver function studies Status: Acute Assessment and Plan: chronic elevated transaminases, h/o masld but will complete full work up to assess for other chronic liver conditions CT scan noted possible portal hypertension, will add EGD tomorrow to assess if varices ? cirrhosis (4) BUSTOS (nonalcoholic steatohepatitis): Code(s): K75.81 - Nonalcoholic steatohepatitis (BUSTOS) Status: Acute (5) Colon, diverticulosis: Code(s): K57.30 - Diverticulosis of large intestine without perforation or abscess without bleeding Status: Acute Assessment and Plan: colonoscopy to check if diverticular bleeding but less likely since his hgb is normal (6) Hemorrhoid: Code(s): K64.9 - Unspecified hemorrhoids Status: Acute Assessment and Plan: he says last time used preparation h about 6 years ago GI Consult Note Consult date/time: 03/03/24 12:23 Reason for consult: rectal bleeding HPI: Yang Rosado is a 73 year old male with history of prostate ca treated with XRT, seizure, smoker with last colonoscopy last year, found to have diverticulosis, radiation proctitis and also large internal hemorrhoids. He came to ER after new onset of rectal bleeding.?He says that yesterday noticed bright red blood per rectum, about 1 week ago also had small amount of blood after hard stool but none until yesterday. He came to ER and had 3 more episodes of hematochezia with some stool in it. hgb normal 14, he has chronic elevated transaminases 70-90, normal platelets and bili, CT scan reviewed, noted portal hypertension. No recent EGD. Hepatitis panel 2020 negative. Review of Systems Constitutional: Constitutional: Denies headache(s) and Denies weakness Eyes: Eyes: Denies blurry vision ENT: Reports Normal hearing present, Denies headache(s) and Denies neck pain Cardiovascular: Cardiovascular: Denies chest pain and Denies dyspnea Respiratory: Respiratory: Denies dyspnea Gastrointestinal: Gastrointestinal: Reports no additional gastrointestinal complaints Genitourinary: Genitourinary: Denies dysuria Musculoskeletal: Musculoskeletal: Reports back pain (for few months- better now) Integumentary/Breasts: Skin/Breast: Denies dry skin Neurologic: Reports Normal hearing present, Denies headache(s) and Denies weakness Psychiatric: Psychiatric: Denies anxiety Endocrine: Endocrine: Denies change in body appearance Hematologic/Lymphatic: Hematologic/Lymphatic: Denies easy bleeding Allergic/Immunologic: Allergic/Immunologic: Denies urticaria PMFSH Past Medical History Medical History (Updated 03/03/24 @ 12:30 by German Greco MD) Annual physical exam Colon, diverticulosis Elevated liver enzymes Encounter for general adult medical examination without abnormal findings Establishing care with new doctor, encounter for Hemorrhoid Hx of malignant neoplasm of prostate Immunization due Impacted cerumen of both ears BUSTOS (nonalcoholic steatohepatitis) Obesity (BMI 30.0-34.9) Prostate cancer Screening for colon cancer Screening for malignant neoplasm of colon Screening for malignant neoplasm of prostate Seizure disorder (~2016) Seizure disorder Family History Family History (Reviewed 03/03/24 @ 04:45 by William Mccormick,
[2024-03-03 13:20] LABS: Hematocrit 39.9 % (42.0-52.0); Hemoglobin 13.1 g/dL (14.0-18.0)
[2024-03-03] MEDS: BISACODYL 5 MG TABLET EC 20 MG PO (16:14)
[2024-03-03] MEDS: lamoTRIgine 100 MG TABLET PO (16:14)
[2024-03-03] MEDS: polyethylene glycoL 3350 238 GM BOTTLE PO (16:15)
[2024-03-03 19:35] LABS: Hematocrit 38.4 % (42.0-52.0); Hemoglobin 13.1 g/dL (14.0-18.0)
[2024-03-03] MEDS: MAGNESIUM CITRATE 300 ML BTL PO (20:34)
[2024-03-04] VITALS (10 sets, daily range): BP systolic 106–146; BP diastolic 63–94; PULSE 68–90; RESP 17–23; TEMP 36.1–36.9; O2SAT 98–100
[2024-03-04 01:50] LABS: Hematocrit 34.7 % (42.0-52.0); Hemoglobin 11.9 g/dL (14.0-18.0)
[2024-03-04] MEDS: SODIUM CHLORIDE 0.9% IV 1,000 ML 100 ML IV CONT (04:38)
[2024-03-04 05:30] LABS: Alanine Aminotransferase 51 U/L (6-50); Albumin Level 3.9 g/dL (3.5-5.1); Alkaline Phosphatase 66 U/L (38-126); Anion Gap 4 mmol/L (4-12); Aspartate Amino Transferase 42 U/L (17-59); Bilirubin,Total 0.8 mg/dL (0.2-1.3); Blood Urea Nitrogen 16 mg/dL (9-20); Calcium 8.9 mg/dL (8.4-10.2); Carbon Dioxide 21 mmol/L (22-30); Chloride 110 mmol/L (98-107); Estimated CRCL calculation 93 ml/min; Estimated Glomerular Filt Rate > 60; Glucose 142 mg/dL (65-110); Iron 167 ug/dL (49-181); Potassium 3.8 mmol/L (3.4-5.0); Sodium 135 mmol/L (137-145)
[2024-03-04 05:39] LABS: Percent Iron Saturation 57 % (20-50)
[2024-03-04 06:17] LABS: Basophils Absolute Auto 0.1 K/mm3 (0.0-0.1); Basophils Percent Auto 1.2 % (0.2-1.2); Eosinophils Absolute Auto 0.2 K/mm3 (0-0.3); Hematocrit 35.9 % (42.0-52.0); Hemoglobin 11.8 g/dL (14.0-18.0); Immature Granulocyte Absolute 0.01 K/mm3 (0.00-0.031); Immature Granulocyte Percent A 0.2 % (0-0.5); Lymphocytes Percent Auto 21.1 % (18.3-44.2); Mean Corpuscular HGB Conc 32.9 g/dl (32-36); Mean Corpuscular Hemoglobin 32.2 pg (26-34); Mean Corpuscular Volume 98.1 fl (80-100); Mean Platelet Volume 9.7 fl (7.4-10.4); Monocytes Absolute Auto 0.8 K/mm3 (0.1-0.6); Monocytes Percent Auto 13.9 % (2.6-8.5); Neutrophils Absolute Auto 3.5 K/mm3 (1.3-6.7); Neutrophils Percent Auto 60.6 % (45.5-73.1); Platelet Count Result 156 k/mm3 (150-375); Red Blood Count 3.66 M/mm3 (4.6-6.20); Red Cell Distribution Width 13.2 % (11.5-14.5); White Blood Count 5.7 K/mm3 (4.5-10.0)
--- NOTE | 2024-03-04 08:40 | PM.IMPN ---
Progress Note: A&P Assessment and Plan (1) Acute lower gastrointestinal bleeding: Code(s): K92.2 - Gastrointestinal hemorrhage, unspecified Status: Acute Assessment and Plan: - H/H stable - CT abdomen/pelvis: - monitor for signs of active bleeding - Evaluated by GI. Differential could be perianal from hemorrhoids, also has radiation proctitis and diverticulosis in colonoscopy last year - Plan for colonoscopy today. Patient remains NPO at this time (2) Hx of malignant neoplasm of prostate: Code(s): Z85.46 - Personal history of malignant neoplasm of prostate Status: Acute Assessment and Plan: - follows [facility] GI outpatient - h/o proctitis - colonoscopy ordered (3) Metabolic dysfunction-associated steatotic liver disease (MASLD): Code(s): K76.0 - Fatty (change of) liver, not elsewhere classified Status: Acute Assessment and Plan: - Chronically elevated transaminases 70-90, normal platelets and bili - CT scan reviewed, noted portal hypertension. No recent EGD. Hepatitis panel 2020 negative. - EGD scheduled for today by GI to assess varices and cirrhosis - Evaluated by GI. Due to patients history of metabolic dysfunction associated steatotic liver disease will obtain a full workup to assess for other chronic liver conditions (4) Colon, diverticulosis: Code(s): K57.30 - Diverticulosis of large intestine without perforation or abscess without bleeding Status: Acute Assessment and Plan: ?Last colonoscopy last year, found to have diverticulosis, radiation proctitis and also large internal hemorrhoids - colonoscopy to check if diverticular bleeding but less likely since his hgb is normal (5) Seizure disorder: Onset Date: ~2015 Code(s): G40.909 - Epilepsy, unspecified, not intractable, without status epilepticus Status: Acute Assessment and Plan: Follows neurology outpatient at [facility] Dr. Marks - Continue lamotrigine 100 mg BID. Subjective Date/time seen: 03/04/24 08:40 Interval history: 73-year-old gentleman with PMH elevated liver enzymes, h/o prostate ca, metabolic dysfunction associated steatotic liver disease, obesity, seizure, smoker presents to the hospital for rectal bleeding.? Review of Systems Review of Systems: All systems reviewed & are unremarkable except as noted in HPI and below Exam Narrative: AF General: well nourished, well-developed male in no acute respiratory distress who is nontoxic appearing, lying semi recumbent in bed. HEENT: Normocephalic. Atraumatic. Pupils equal round reactive to light. Extraocular movement intact. Sclera clear and anicteric. Nares patent. No oral lesions. Moist mucous membranes. Tongue is midline. Palate colton symmetrically. No facial asymmetry. Neck: Neck was supple. No dominant adenopathy, thyromegaly or masses. 2+ carotid upstrokes without bruits. Chest: Lungs are clear to auscultation bilaterlly. No wheezes or crackles. CV: Heart was regular rate and rhythm. S1/S2. No murmurs, gallops, or rubs. Abd: Abdomen was soft. Nontender. Nondistended. Postive bowel sounds. No organomegaly or masses. Ext: No clubbing, cyanosis, or edema. 2+ DP pulses bilaterally. Neuro: Patient is alert and oriented x4. Strenth is 5/5 in both upper and lower extremities. Cranial nerves 2-12 are intact. Speech is clear. Psych: Normal nood and affect. Patient is pleasant and cooperative. Skin: Warm and dry. No rashes noted. Objective Data Vital Signs Vital Signs: Vital Signs - 24 hr 03/03/24 09:53 03/03/24 09:00 03/03/24 12:00 Temperature 98.8 F Pulse Rate 85 90 Respiratory Rate 18 Blood Pressure 133/76 Pulse Oximetry 95 100 Oxygen Delivery Room Air 03/03/24 12:00 03/03/24 16:00 03/03/24 16:00 Temperature 97.0 F L 96.3 F L Pulse Rate 76 98 80 Respiratory Rate 18 16 Blood Pressure 135/71 114/73 Pulse Oximetry 99 91 Oxygen Delivery 03/03/24 20:00 03/03/24 20:00 05/
[2024-03-04] MEDS: PANTOPRAZOLE SODIUM IV 40 MG VIAL IV PUSH (09:16)
--- NOTE | 2024-03-04 11:35 | PC.NURSE ---
To GI Lab per wheelchair.
[2024-03-04] MEDS: LACTATED RINGERS 1,000 ML 150 ML IV CONT (12:01)
--- NOTE | 2024-03-04 12:08 | WPDANESEPPF ---
Anes - Initial Pre Proc Eval Procedure: Operation Date: 03/04/24 15:00 Proposed Procedures p Esophagogastroduodenoscopy & Colonoscopy - German Greco MD Date/Time: 03/04/24 12:08 Surgeon: Romina Reyez DO Pre Op Diagnosis: lower intestinal gi bleeding Patient Data Age: 73 Gender: M Height: 1.85 m Weight: 96.5 kg Last Vital Signs Temp 36.1 C L 03/04/24 12:00 Pulse 75 03/04/24 12:00 Resp 18 03/04/24 12:00 BP 146/71 H 03/04/24 12:00 Pulse Ox 100 03/04/24 12:00 O2 Del Method Room Air 03/04/24 11:56 Allergies Allergy/AdvReac Type Severity Reaction Status Date / Time Penicillins Allergy Severe Anaphylactic Verified 03/04/24 11:53 Shock Home Medications Medication Instructions Recorded Confirmed Type lamotrigine 100 mg tablet 100 mg PO BID 03/03/23 03/03/24 History Laboratory Tests 03/03/24 03/03/24 03/04/24 13:14 19:25 01:44 WBC RBC Hgb 13.1 L g/dL 13.1 L g/dL (14.0-18.0) (14.0-18.0) Hct 39.9 L % 38.4 L % (42.0-52.0) (42.0-52.0) MCV MCH MCHC RDW Plt Count MPV Immature Gran % (Auto) Neut % (Auto) Lymph % (Auto) Sibley % (Auto) Eos % (Auto) Baso % (Auto) Lymph # (Auto) [place] # (Auto) Eos # (Auto) Baso # (Auto) Abs Immat Gran (auto) Absolute Neuts (auto) Absolute Nucleated RBC Nucleated RBC % Sodium 135 L mmol/L (137-145) Potassium 3.8 mmol/L (3.4-5.0) Chloride 110 H mmol/L (98-107) Carbon Dioxide 21 L mmol/L (22-30) Anion Gap 4 mmol/L (4-12) BUN 16 mg/dL (9-20) Creatinine 0.70 mg/dL (0.7-1.3) Estim Creat Clear Calc 93 ml/min Estimated GFR > 60 (59 - ) Glucose 142 H mg/dL (65-110) Calcium 8.9 mg/dL (8.4-10.2) Iron 167 ug/dL (49-181) TIBC 293 ug/dL (265-497) % Saturation 57 H % (20-50) Ferritin 126.00 ng/mL (11.1-264) Total Bilirubin 0.8 mg/dL (0.2-1.3) AST 42 U/L (17-59) ALT 51 H U/L (6-50) Alkaline Phosphatase 66 U/L (38-126) Liver Fibrosis Ref ID Liver Fibrosis GGTP Liver Total Bilirubin Liver Apolipoprotein A1 Liver Fibrosis ALT Liver Haptoglobin Liver Fib Fibro Score Liver Fib Fibro Interp Liver Fib Fibro Stage Liver Fibrosis Footnote Necroinflammator Score Necroinflammator Grade Necroinflam Interp Total Protein 6.0 L g/dL (6.3-8.2) Albumin 3.9 g/dL (3.5-5.1) Alpha-1-AT Phenotype Ceruloplasmin U [id number] Mitochondria M2 IgG Ab Actin IgG Antibody Liver/Kid Microsomes Ab 03/04/24 03/04/24 03/04/24 01:45 05:54 05:55 WBC 5.7 K/mm3 (4.5-10.0) RBC 3.66 L M/mm3 (4.6-6.20) Hgb 11.9 L g/dL 11.8 L g/dL (14.0-18.0) (14.0-18.0) Hct 34.7 L % 35.9 L % (42.0-52.0) (42.0-52.0) MCV 98.1 fl (80-100) MCH 32.2 pg (26-34) MCHC 32.9 g/dl (32-36) RDW 13.2 % (11.5-14.5) Plt Count 156 k/mm3 (150-375) MPV 9.7 fl (7.4-10.4) Immature Gran % (Auto) 0.2 % (0-0.5) Neut % (Auto) 60.6 % (45.5-73.1) Lymph % (Auto) 21.1 % (18.3-44.2) Sibley % (Auto) 13.9 H % (2.6-8.5) Eos % (Auto) 3.0 % (0-4.4) Baso % (Auto) 1.2 % (0.2-1.2) Lymph # (Auto) 1.20 K/mm3 (0.9-3.2) Sibley # (Auto) 0.8 H K/mm3 (0.1-0.6
--- NOTE | 2024-03-04 12:27 | SUR.OPER ---
EGD ended at 1221, Colon began at 1226
--- NOTE | 2024-03-04 13:10 | PC.NURSE ---
Returned from GI lab per wheelchair.
--- NOTE | 2024-03-04 14:07 | PM.DS ---
DS: Admitting Diagnosis Discharge Date 03/04/24 Admitting Diagnosis Acute lower GI bleed Hx of malignant neoplasm of prostate Metabolic dysfunction associated steatotic liver disease diverticulosis seizure disorder DS: Discharge Diagnosis Discharge Diagnosis (1) Acute lower gastrointestinal bleeding: Code(s): K92.2 - Gastrointestinal hemorrhage, unspecified Status: Acute (2) Hx of malignant neoplasm of prostate: Code(s): Z85.46 - Personal history of malignant neoplasm of prostate Status: Acute (3) Metabolic dysfunction-associated steatotic liver disease (MASLD): Code(s): K76.0 - Fatty (change of) liver, not elsewhere classified Status: Acute (4) Colon, diverticulosis: Code(s): K57.30 - Diverticulosis of large intestine without perforation or abscess without bleeding Status: Acute (5) Seizure disorder: Onset Date: ~2015 Code(s): G40.909 - Epilepsy, unspecified, not intractable, without status epilepticus Status: Acute DS: Summary Hospital Course Reason for hospitalization: Acute lower GI bleed Hx of malignant neoplasm of prostate Metabolic dysfunction associated steatotic liver disease diverticulosis seizure disorder Hospital Course: 73 year old male with history of prostate ca treated with XRT, seizure, smoker with last colonoscopy last year, found to have diverticulosis, radiation proctitis and also large internal hemorrhoids presented to the hospital for rectal bleeding for one week. An abdominal/pelvis CT was obtained and revealed portal Vein hypertension, umbilical hernia containing fat, bilateral inguinal hernias containing fat. Patient was evaluated by GI and due to prior proctitis and diverticulosis a colonoscopy was obtained which revealed diverticulosis without perforation or abscess without bleeding and internal hemorrhoids. due to patient's chronically elevated transaminases and history of liver disease a complete workup was done for other chronic liver conditions and an EGD was performed. EGD revealed Yoder's esophagus and gastritis. Patient started on pantoprazole 40 mg. Patient states that rectal bleeding has subsided. He is tolerating a diet well. Cleared by GI. Will follow up with GI in 3 months. Patient discharged home in a stable condition. Will follow up with PCP in 1 week and GI in 3 months. Status at Discharge Functional status at discharge: independent ambulation Time Spent with Patient Time attestation: Total time spent providing and/or coordinating discharge services: Time spent: Greater than 30 minutes Exam Narrative: AF HR 68 RR 17 SpO2 100 BP 136/78 General: well nourished, well-developed male in no acute respiratory distress who is nontoxic appearing, lying semi recumbent in bed. HEENT: Normocephalic. Atraumatic. Pupils equal round reactive to light. Extraocular movement intact. Sclera clear and anicteric. No facial asymmetry. Chest: Lungs are clear to auscultation bilaterally. No wheezes or crackles. CV: Heart was regular rate and rhythm. S1/S2. No murmurs, gallops, or rubs. Abd: Abdomen was soft. Nontender. Nondistended. Positive bowel sounds. No organomegaly or masses. Ext: No clubbing, cyanosis, or edema. 2+ DP pulses bilaterally. Neuro: Patient is alert and oriented x4. Speech is clear. Psych: Normal mood and affect. Patient is pleasant and cooperative. Skin: Warm and dry. No rashes noted. DS: Data Data Completed and Pending Completed studies during hospitalization: Colonoscopy EGD Abdomen/pelvis CT Pending studies at discharge: Pending at discharge 03/04/24 12:41 Surgical [PTH] Routine Labs on day of discharge: Labs from last 24 hours 03/04/24 03/04/24 03/04/24 05:55 05:54 01:45 WBC 5.7 RBC 3.66 L Hgb 11.8 L 11.9 L Hct 35.9 L 34.7 L MCV 98.1 MCH 32.2 MCHC 32.9 RDW 13.2 Plt Count 156 MPV 9.7 Immature Gran % (Auto) 0.2 Neut % (Auto)
[2024-03-05 10:03] LABS: Ceruloplasmin 24 mg/dL (18-36)
[2024-03-07 05:08] LABS: LKM 1 Antibody <=20.0 U (<=20.0)
[2024-03-08 11:33] LABS: Actin Antibody (IgG) <20 U (<20)
[2024-03-14 15:49] LABS: ALT 40 U/L (9-46); Alpha-2-Macroglobulin 200 mg/dL (106-279); Apolipoprotein A1 161 mg/dL (94-176); Fibrosis Score 0.56; Fibrosis Stage F2; GGT 128 U/L (3-70); Haptoglobin 84 mg/dL (43-212); Necroinflammat Act Grade A1; Total Bilirubin 0.6 mg/dL (0.2-1.2)
[2024-03-18 18:48] LABS: Mitochondrial (M2) Ab (IgG) <20.0 U
== END 2024-03-04 14:15 | disposition home or self-care (01) ==
LOC: ANHED 07:01 → ANH3MEDSUR 03-04 08:38
PROVIDERS: Internal Medicine Gastroenterology; Nurse Practitioner; Admitting Provider Internal Medicine; Emergency Provider Emergency Medicine; PCP Nurse Practitioner Family; Visit Provider Family Medicine
PROC: 0DJ08ZZ Inspection of Upper Intestinal Tract, Via Natural or Artificial Opening Endoscopic (ICD-10-PCS; CPT 43235; principal; 2024-03-04 15:00)
DX: K92.2 Gastrointestinal hemorrhage, unspecified (principal); R94.5 Abnormal results of liver function studies; K55.20 Angiodysplasia of colon without hemorrhage; K64.8 Other hemorrhoids; K22.70 Barrett's esophagus without dysplasia; K29.50 Unspecified chronic gastritis without bleeding; K21.00 Gastro-esophageal reflux disease with esophagitis, without bleeding; K31.A19 Gastric intestinal metaplasia without dysplasia, unspecified site; K75.81 Nonalcoholic steatohepatitis (NASH); K57.30 Diverticulosis of large intestine without perforation or abscess without bleeding; G40.909 Epilepsy, unspecified, not intractable, without status epilepticus; Z85.46 Personal history of malignant neoplasm of prostate; Z87.891 Personal history of nicotine dependence
CPT/HCPCS: 45388; 43239; 36415; 74177; 80053; 81596; 82104; 82390; 82728; 83520; 83540; 83550; 83605; 84145; 85014; 85018; 85025; 85610; 85730; 86364; 86376; 86850; 86900; 86901; 88305; 96361; 96374; 96376; 99285; A9270; C9113; G0378; J2704; J7030; J7120; Q9967

== ENCOUNTER 2024-04-11 08:35 | Outpatient (CLI) | payer MEDICARE, SELFPAY ==
[2024-04-11 08:58] LABS: Hematocrit 38.3 % (42.0-52.0); Hemoglobin 13.1 g/dL (14.0-18.0); Mean Corpuscular HGB Conc 34.2 g/dl (32-36); Mean Corpuscular Hemoglobin 31.8 pg (26-34); Mean Platelet Volume 9.3 fl (7.4-10.4); Platelet Count Result 178 k/mm3 (150-375); Red Blood Count 4.12 M/mm3 (4.6-6.20); Red Cell Distribution Width 12.2 % (11.5-14.5); White Blood Count 5.2 K/mm3 (4.5-10.0)
== END 2024-04-11 08:36 | disposition home or self-care (01) ==
LOC: ANHLAB 08:37
PROVIDERS: PCP Nurse Practitioner Family; Visit Provider Nurse Practitioner Family
DX: D64.9 Anemia, unspecified (principal)
CPT/HCPCS: 36415; 85027

== ENCOUNTER 2024-09-27 19:02 | Emergency (ER) | payer MEDICARE, SELFPAY ==
--- NOTE | ~2024-09-27 | XR_ITS ---
XR chest 1V Ordering provider: William Mccormick MD History: 73 years Male with . altered mental status . Comparison: None. FINDINGS: MEDIASTINUM: The cardiac silhouette is not enlarged. Congestive kinsey. LUNGS: No effusions or pneumothorax. Bilateral interstitial changes are noted. Opacification in the left lung base medially is seen which may indicate atelectasis versus pneumonia. OTHER: No free air under the diaphragm. Degenerative changes of the spine. IMPRESSION: Bilateral interstitial thickening which may indicate pneumonitis versus pulmonary edema with possible underlying fibrotic changes. Possible pneumonia versus atelectasis in the left lung base medially.Clinical correlation advised. Reviewed, dictated and finalized at location A. ILE MACHINERY INSTRUCTOR IMPRESSION: Bilateral interstitial thickening which may indicate pneumonitis versus pulmona ry edema with possible underlying fibrotic changes. Possible pneumonia versus atelectasis in the left lung base medially.Clinical c orrelation advised.
--- NOTE | ~2024-09-27 | CT_ITS ---
CT brain wo con Ordering provider: William Mccormick MD History: 73 years Male with . seizure . Comparison: None. Technique: CT of the head without contrast. Radiation reduction technique utilized. The dose-length product was 1059.33 mGy-cm. FINDINGS: BRAIN PARENCHYMA AND CSF SPACES: Severe leukoaraiosis and diffuse cortical atrophy. Severe atheromato us disease. No midline shift, mass effect or hemorrhage. The brain parenchyma and CSF spaces are oth erwise normal. Empty sella turcica. VISUALIZED PARANASAL SINUSES: Well aerated. MASTOIDS: Well aerated. BONES: The bones appear intact. SOFT TISSUES: Visualized nasopharynx is normal. Superficial soft tissues are normal. IMPRESSION: No acute intracranial findings. Reviewed, dictated and finalized at location A. EM[employer] AFFAIRS DIRECTOR
[2024-09-27 18:56] VITALS: BP 148/82; PULSE 102; RESP 16; TEMP 37.5; O2SAT 97
--- NOTE | 2024-09-27 19:14 | ECG_ITS ---
Test Date: 2024-09-27 20:21:16 Measurements Intervals Hinkle Rate: 92 P: 54 MD: 184 QRS: -35 QRSD: 144 T: 31 QT: 379 QTc: 470 Interpretive Statements SINUS RHYTHM WITH SINUS ARRHYTHMIA LEFT AXIS DEVIATION RIGHT BUNDLE BRANCH BLOCK BASELINE ARTIFACT- II, III, AVL, AVF, V2, V4-V6 ABNORMAL ECG No previous ECG available for comparison Electronically Signed On 09-28-2024 06:19:43 [employer] by Chucky Carmen D.O.
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
[2024-09-27 19:31] LABS: Basophils Absolute Auto 0.1 K/mm3 (0.0-0.1); Basophils Percent Auto 0.8 % (0.2-1.2); Hematocrit 39.2 % (42.0-52.0); Hemoglobin 13.4 g/dL (14.0-18.0); Immature Granulocyte Absolute 0.09 K/mm3 (0.00-0.031); Immature Granulocyte Percent A 1.1 % (0-0.5); Lymphocytes Absolute Auto 1.26 K/mm3 (0.9-3.2); Lymphocytes Percent Auto 15.2 % (18.3-44.2); Mean Corpuscular HGB Conc 34.2 g/dl (32-36); Mean Corpuscular Hemoglobin 30.9 pg (26-34); Mean Corpuscular Volume 90.5 fl (80-100); Mean Platelet Volume 9.3 fl (7.4-10.4); Monocytes Absolute Auto 0.3 K/mm3 (0.1-0.6); Monocytes Percent Auto 3.6 % (2.6-8.5); Neutrophils Absolute Auto 6.6 K/mm3 (1.3-6.7); Neutrophils Percent Auto 79.3 % (45.5-73.1); Platelet Count Result 225 k/mm3 (150-375); Red Blood Count 4.33 M/mm3 (4.6-6.20); Red Cell Distribution Width 14.6 % (11.5-14.5); White Blood Count 8.3 K/mm3 (4.5-10.0)
[2024-09-27 19:35] LABS: Glucose Point of Care 132 mg/dl (65-105)
[2024-09-27] MEDS: SODIUM CHLORIDE 0.9% IV 1,000 ML 999 ML IV CONT (19:39)
[2024-09-27] MEDS: MIDAZOLAM HCL (*CRX) 2 MG/2 ML VIAL IV PUSH (19:40)
[2024-09-27 19:41] LABS: Ethanol < 10 mg/dL (<10)
[2024-09-27] MEDS: MIDAZOLAM HCL (*CRX) 2 MG/2 ML VIAL 4 MG (19:41)
[2024-09-27 19:42] LABS: Prothrombin Time 13.9 Seconds (11.1-14.7)
[2024-09-27 19:43] LABS: Partial Thromboplastin Time 31.2 Seconds (22.3-36.8)
[2024-09-27 19:45] LABS: Albumin Level 4.7 g/dL (3.5-5.1); Alkaline Phosphatase 81 U/L (38-126); Aspartate Amino Transferase 28 U/L (17-59); Blood Urea Nitrogen 18 mg/dL (9-20); Calcium 9.2 mg/dL (8.4-10.2); Carbon Dioxide 18 mmol/L (22-30); Chloride 106 mmol/L (98-107); Estimated CRCL calculation 82 ml/min; Estimated Glomerular Filt Rate > 60; Glucose 148 mg/dL (65-110)
[2024-09-27 19:46] LABS: Anion Gap 13 mmol/L (4-12); Bilirubin,Total 0.6 mg/dL (0.2-1.3); Sodium 137 mmol/L (137-145)
[2024-09-27 19:52] LABS: Lactic Acid Reflex 3.2 mmol/L (0.7-2.0)
[2024-09-27 19:53] LABS: Alanine Aminotransferase 22 U/L (6-50)
[2024-09-27 19:56] LABS: Troponin I < 0.012 ng/mL (0.000-0.034)
[2024-09-27 20:03] LABS: Procalcitonin 0.1 ng/mL
[2024-09-27 20:36] VITALS: BP 156/84; PULSE 89; RESP 15; O2SAT 97
[2024-09-27 22:25] VITALS: BP 138/84; PULSE 72; RESP 15; O2SAT 100
[2024-09-27 22:36] LABS: Reflex Lactic Acid Yes or No Add Lactic
[2024-10-02 09:23] LABS: Lamotrigine Lamictal 5.4 mcg/mL (2.5-15.0)
== END 2024-09-27 22:26 | disposition home or self-care (01) ==
PROVIDERS: Emergency Provider Emergency Medicine; PCP Nurse Practitioner Family
DX: G40.909 Epilepsy, unspecified, not intractable, without status epilepticus (principal); Z85.46 Personal history of malignant neoplasm of prostate; Z87.891 Personal history of nicotine dependence
CPT/HCPCS: 36415; 70450; 71045; 80053; 80175; 82077; 82948; 83605; 83735; 84145; 84484; 85025; 85610; 85730; 93005; 96361; 96374; 99284; J2250; J7030

== ENCOUNTER 2024-12-18 20:38 | Emergency (ER) | payer MEDICARE, SELFPAY ==
--- NOTE | ~2024-12-18 | XR_ITS ---
EXAMINATION: XR chest 1V portable DATE: 12/18/2024 21:10 INDICATION: Palpitations. TECHNIQUE: A single frontal view of the chest was obtained. COMPARISON: Chest single view 09/27/2024, CT abdomen and pelvis 03/03/2024 FINDINGS: There is no pneumonia, pleural effusion, or pneumothorax. The heart size is normal. IMPRESSION: 1. No acute cardiopulmonary disease. Reviewed, dictated and finalized at location A. M TRAIN DRIVER
--- NOTE | ~2024-12-18 | CT_ITS ---
EXAMINATION: CT brain wo con DATE: 12/18/2024 21:32 INDICATION: Dizziness. TECHNIQUE: Computed tomography (CT) of the head was performed without intravenous contrast. The mA wa s adjusted according to patient size. Iterative reconstruction technique was employed. The dose-lengt h product was 605.33 mGy-cm. COMPARISON: Head CT 09/27/2024 FINDINGS: There are scattered areas of low attenuation in the cerebral white matter. There is no intr acranial hemorrhage, acute infarction, or abnormal intracranial mass lesion. The ventricles are odalys l in size. There are likely changes of ocular lens replacement surgeries. There is mild mucosal thick ening in the paranasal sinuses. The mastoid air cells are normal. IMPRESSION: 1. Stable moderate nonspecific cerebral white matter disease, which likely represents chronic small v essel ischemic disease. Reviewed, dictated and finalized at location A. ORT FILLER IMPRESSION: 1. Stable moderate nonspecific cerebral white matter disease, which likely repr esents chronic small vessel ischemic disease.
--- OUTSIDE RECORDS SUMMARY | 2024-12-18 20:40 | XMS_ITS | Clinical Summary ---
Author Organization [facility] Address [address] [place] [address] Care Team Providers Care Dispatcher Bus And Trolley Name Role Phone Unavailable Primary Care Provider Unavailabl e Source Comments [facility],non-owned Affiliates and Associated Physician Practices is amultiple site organization consisting of ambulatory clinics and hospital sitesin [place], [place]. This disclosure is being madepursuant to the Care Everywhere program and may not contain all information available regarding this patient. Last updated 18.[facility] Allergies Active Allergy Reactions Criticality Noted Date Comments Penicillins Unknown 12/08/2020 Medications * Be aware that medications may not be up to date on this document. Alwaysverify current medications with the patient. Medication Sig Dispensed Refills Start Date End Date Status levETIRAcetam (KEPPRA) 750 MG tablet 2 times daily 05/20/2020 Active aspirin EC (ECOTRIN) 81 MG tablet Take 81 mg by mouth as directed Every other day Active Active Problems Problem Noted Date Diagnosed Date NAFLD (nonalcoholic fatty liver disease) 021 Overview (03/17/2021): 03/16/21 Fibroscan CAP 253, LSM 7.9 kPa Sensorineural hearing loss (SNHL) of both ears 0 01/16/2013 Family History Relation Name Status Comments Brother fatty liver Other Mother Fatty liver Other Social History Tobacco Use Types Packs/Day Years Used Date Smoking Tobacco: Former Cigarettes Q uit: 1989 Smokeless Tobacco: Never Alcohol Use Standard Drinks/Week Comments Not Currently 0 (1 standard drink = 0.6 oz pur e alcohol) Sex and Gender Information Value Date Recorded Sex Assigned at Not on file Gender Identity Not on file Sexual Orientation Not on file Last Filed Vital Signs Vital Sign Reading Time Taken Comments Blood Pressure 140/81 03/16/2021 12:23 PM CDT Pulse 76 03/16/2021 12:23 PM CDT Temperature 36.2 C (97.1 F) 12/08/2020 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 Respiratory Rate 18 03/16/2021 12:23 PM CDT Oxygen Saturation 98% 03/16/2021 12:23 PM CDT Inhaled Oxygen Concentration - - Weight 103.9 kg (229 lb) 03/16/2021 12:23 PM CDT Height 185.4 cm (6' 1 ) 12/08/2020 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 Body Mass Index 30.21 12/08/2020 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 Plan of Treatment Health Maintenance Due Date Last Done Comments COLOGUARD (AGES 45-75) - COL ON CA SCREENING 1950 COLON MONITORING 1950 COLONOSCOPY - COLON CA SCREENING 1950 CT COLONOGRAPHY - COLON CA SCREENING 1950 Colorectal Cancer Screening 1950 FIT - COLON CA SCREENING 1950 FLEX SIG - COLON CA SCREENING 1950 LIPID TESTING 1950 HEPATITIS C SCREENING 12/22/1969 DTAP/TDAP/TD VACCINES (1 - Tdap) 1970 PNEUMOCOCCAL VACCINE 50+ (1 of 1 - PCV) 2001 ZOSTER VACCINE (1 of 2) 2001 AAA SCREENING 2016 SCREENING FOR DIABETES 12/08/2020 COVID-19 VACCINE (1 - 2023-2 5 season) 2024 INFLUENZA VACCINE (#1) 2024 DEPRESSION SCREENING 10/30/2024 Respiratory Syncytial Virus (RSV) Vaccine Pt: or over 60 yrs (1 - 1-dose 75+ series) 2026 HEPATITIS B VACCINE Aged Out No longe r eligible based on patient's age to complete this topic HIB VACCINE Aged Out No longer eligi ble based on patient's age to complete this topic HPV VACCINE Aged Out No longer eligi ble based on patient's age to complete this topic MENINGOCOCCAL (Group B) VACCINE Aged Out No longer eligible based on patient's age to complete this topic MENINGOCOCCAL VACCINE Aged Out No nieves maruks eligible based on patient's age to complete this topic Goals Goal Patient Goal Type Associated Problems Recent Progress Patient-Stated? Author Medication Management General On track( 021 12:26 PM CDT) Michelle Perry RN Note: Expected end date: Ongoing Interventions: Take all medications as prescribed Let your doctor know right away about any changes in your medications Make sure to request a refill of your medication at least one week prior to your last dose YANG ROSADO Personal/Family [address] [place] [address] YANG ROSADO Personal/Family [address] [place] [address] YANG ROSADO Personal/Family [phone] ([place]) [address] [place] [address]
--- OUTSIDE RECORDS SUMMARY | 2024-12-18 20:41 | XMS_ITS | Clinical Summary ---
Author Organization [facility] Address [address] [place] [id number] Care Team Providers Care Atm Technician Name Role Phone Allen Juarez DO Primary Care Provider [phone] Allergies Active Allergy Reactions Criticality Noted Date Comments Penicillins Dizziness 11/22/2021 Passed out with pcn shot when he was a teenager. Medications levETIRAcetam 1000 MG tablet Take 1,000 mg by mouth 2 (two) times daily. 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 Gender Identity Not on file Sexual Orientation Not on file Last Filed Vital Signs Vital Sign Reading Time Taken Comments Blood Pressure 147/80 11/22/2021 10:36 AM CEILING CLEANER Pulse 75 11/22/2021 10:36 AM CEILING CLEANER Temperature 36.2 C (97.2 F) 11/22/2021 9:21 AM CEILING CLEANER Respiratory Rate 18 11/22/2021 9:21 AM CEILING CLEANER Oxygen Saturation 98% 11/22/2021 10:36 AM CEILING CLEANER Inhaled Oxygen Concentration - - Weight 99.8 kg (220 lb) 11/17/2021 11:59 AM CEILING CLEANER Height 185.4 cm (6' 1 ) 11/17/2021 11:59 AM CEILING CLEANER Body Mass Index 29.03 11/17/2021 11:59 AM CEILING CLEANER Plan of Treatment Health Maintenance Due Date Last Done Comments Colorectal Cancer Screening Colonoscopy (10 Years) 1951 Hepatitis C 1969 Zoster Vaccines (1 of 2) 2001 Annual Medicare Wellness Visit 2016 DTaP, Tdap and Td Vaccines ( 1 - Tdap) 12/31/2016 12/30/2016 Pneumococcal Vaccine: 65+ Years (2 of 2 - PCV) 12/30/2017 12/30/2016 COVID-19 Vaccine (4 - 2023-2 5 season) 2024 08/28/2021, 01/18/2021, 12/17/2020 Influenza Adult (#1) 2024 08/06/2019 RSV Immunization or 60+ Years (1 - 1-dose 75+ series) 2026 Meningococcal B Vaccine Aged Out No l onger eligible based on patient's age to complete this topic Meningococcal Vaccine Aged Out No nieves markus eligible based on patient's age to complete this topic RSV Immunizations Under 20 Months Aged Out No longer eligible b ased on patient's age to complete this topic Medical Devices Implanted Type Area Proofer Prepress Device Identifier Shelf Expiration Date Model / Serial / Lot Trifocal Intraocular Lens Implanted:Qty: 1 on 11/22/2021 by Jordan Sims MD at [facility] Left: Eye 03/29/2024 [id number] / [id number] / Insurance GENERIC - COMMERCIAL [employer] Care Teams Atm Technician Relationship Specialty Start Date End Date Allen Juarez DO [address] [address] PCP - General INTERNAL MEDICINE 11/22/21
--- OUTSIDE RECORDS SUMMARY | 2024-12-18 20:41 | XMS_ITS | Patient Health Summary ---
Author Organization [facility] Address [address] [place] [address] Care Team Providers Care Enforcement Officer Name Role Phone Unavailable Primary Care Provider Unavailabl e Note from [facility],non-owned Affiliates and Associated Physician Practices is amultiple site organization consisting of ambulatory clinics and hospital sitesin [place], [place], [place] and [place]. This disclosure is being madepursuant to the Care Everywhere program and may not contain all information available regarding this patient. Last updated 18.[facility] [employer] Allergies * Penicillins(Unknown) Medications * Be aware that medications may not be up to date on this document. Alwaysverify current medications with the patient. * levETIRAcetam (KEPPRA) 750 MG tablet(Started 05/20/2020) 2 times daily * aspirin EC (ECOTRIN) 81 MG tablet Take 81 mg by mouth as directed Every other day Active Problems Problem Noted Date Diagnosed Date NAFLD (nonalcoholic fatty liver disease) 021 Sensorineural hearing loss (SNHL) of both ears 0 01/16/2013 Social History Tobacco Use Types Packs/Day Years [...] 36.2 C (97.1 F) 12/08/2020 12:45 PM EMAIL SPECIALIST Respiratory Rate 18 03/16/2021 12:23 PM CDT Oxygen Saturation 98% 03/16/2021 12:23 PM CDT Inhaled Oxygen Concentration - - Weight 103.9 kg (229 lb) 03/16/2021 12:23 PM CDT Height 185.4 cm (6' 1 ) 12/08/2020 12:45 PM EMAIL SPECIALIST Body Mass Index 30.21 12/08/2020 12:45 PM EMAIL SPECIALIST Procedures * AR LIVER ELASTOGRAPHY(Performed 03/16/2021) Performed for Elevated liver enzymes * OKZPV-3-NZLGSSSPSCN BLOOD(Performed 12/08/2020) Performed for Elevated liver enzymes, Hepatic steatosis * SMOOTH MUSCLE ANTIBODY W REFLEX TITER(Performed 12/08/2020) Performed for Elevated liver enzymes, Hepatic steatosis * MITOCHONDRIAL ANTIBODY SCREEN(Performed 12/08/2020) Performed for Elevated liver enzymes, Hepatic steatosis * PT-INR SLH(Performed 12/08/2020) Performed for Elevated liver enzymes, Hepatic steatosis * MICROSOMAL ANTIBODY LIVER/KIDNEY(Performed 12/08/2020) Performed for Elevated liver enzymes, Hepatic steatosis * IGG BLOOD(Performed 12/08/2020) Performed for Elevated liver enzymes, Hepatic steatosis * HEPATITIS B CORE ANTIBODY TOTAL(Performed 12/08/2020) Performed for Elevated liver enzymes, Hepatic steatosis * HEPATITIS B SURFACE ANTIGEN W RFLX CONFIRMATION(Performed 12/08/2020) Performed for Elevated liver enzymes, Hepatic steatosis * TRANSFERRIN(Performed 12/08/2020) Performed for Elevated liver enzymes, Hepatic steatosis * IRON BLOOD(Performed 12/08/2020) Performed for Elevated liver enzymes, Hepatic steatosis * FERRITIN(Performed 12/08/2020) Performed for Elevated liver enzymes, Hepatic steatosis * CERULOPLASMIN(Performed 12/08/2020) Performed for Elevated liver enzymes, Hepatic steatosis * SILVIA BLOOD SCREEN W/REFLEX TITER(Performed 12/08/2020) Performed for Elevated liver enzymes, Hepatic steatosis * GGT(Performed 12/08/2020) Performed for Elevated liver enzymes, Hepatic steatosis * HEPATIC FUNCTION PANEL(Performed 12/08/2020) Performed for Elevated liver enzymes, Hepatic steatosis Results * PROC FIBROSCAN (03/16/2021 11:49 AM CDT) Narrative Jerry Barnes MD - 03/16/2021 11:49 AM CDT Jerry Barnes MD 03/17/2021 4:46 PM Diagnosis: WAQAR RN verified patient has no implanted devices and NPO for prior 3 hours. Procedure explained and consent signed. Date of Exam: 03/16/2021 Liver Stiffness: (LSM, kPa) median: 7.9 IQR (interquartile range): 0.6 IQR/Median% (ideally < 30%): 8 CAP (controlled attenuation parameter): 253 Technical Difficulty: None Ordering Provider: Carolina Gaston REGIONAL SALES EXECUTIVE Phone Fax Fibroscan interpretation: I have personally reviewed the Fibroscan report and associated tracings. The calculated Liver Stiffness Measurement (LSM, kPa) indicates that: The probability of advanced liver fibrosis is: low to moderate. The loss of ultrasound signal, (controlled attenuation parameter, CAP [dB/m]), indicates that the probability of hepatic steatosis is: moderate. Jerry Barnes MD The following criteria are used to indicate the probability of advanced (stage 3-4) fibrosis: < 7.0 kPa: low 7.0-8.9 kPa: low to moderate 9.0-14.9 kPa: moderate 15-20 kPa: high > 20 kPa: very high Liver stiffness > 20 kPa is also associated with a high probability of complications of portal hypertension including varices and ascites. Liver stiffness > 50 kPa is associated with a high risk of variceal bleeding. These interpretations are based on the following published data: Ozzy PJ, Chucho M, Kandace M, et al. Accuracy of FibroScan controlled attenuation parameter and liver stiffness measurement in assessing steatosis and fibrosis in patients with nonalcoholic fatty liver disease. Gastroenterology 2019;156:3226-4220. Miles MS, Sergio R, Van Mariaelena ML, et al. Vibration-controlled transient elastography to assess fibrosis and steatosis in patients with nonalcoholic fatty liver disease. Clin Gastroenterol Hepatol 2019;17:156-163. Note: 1. Fibroscan cannot reliably identify earlier stages of fibrosis (ie distinguish F0 from F1 and F2) and thus a histologic stage cannot be predicted from the Fibroscan reading. 2. Assessing the likelihood of advanced fibrosis in patients with indeterminate liver stiffness measurement (LSM) by Fibroscan (e.g., 8-15 kPa) can be improved by also calculating the FIB4 score (Kierrauke et al. Hepatology Communications 2019;3:4773-0714) or NAFLD Fibrosis score (Ruano et al. Clinical Gastroenterology and Hepatology 2019;17:9854-8479. from routine clinical data. 3. Liver stiffness can be increased by factors other than fibrosis including passive congestion, infiltrative processes, active alcoholism, biliary obstruction and marked inflammation. The interpretation of the Fibroscan result provided above may not have taken such clinical factors into account. Disease etiology also influences Fibroscan cutoff values for fibrosis stages and the following cutoffs have been proposed (Irma et al, Clin Gastro Hepatol 2015; 13:27-36): Cutoffs for Stage 3 and Stage 4 fibrosis respectively: Hepatitis B: >9 and >11.7 kPa Hepatitis C: >9.5 and >12.5 kPa HCV-HIV: >11 and >14 kPa Cholestatic liver diseases: >10 and >17.9 kPa NAFLD/BUSTOS: >10 and >14 kPa CAP estimates of steatosis: normal <200 dB/m mild 200 to 250 dB/m moderate 250-290 dB/m substantial > 290 dB/m (Note that Fibroscan is not a quantitative measure of liver fat.) These criteria are estimates and may change as additional supporting data becomes available. [email or web address] Carolina Gaston METAL WELDER-ROTARY CUTTER FEEDER PROCEDURE/M INOR SURGICAL ORDERABLES * PT-INR [facility] (12/08/2020 1:57 PM EMAIL SPECIALIST) PT 13.5 12.1 - 14.8 Seconds 12/08/2020 2:42 PM EMAIL SPECIALIST [facility] INR 1.1 See Comment 12/08/2020 2:42 PM EMAIL SPECIALIST [facility] Comment:The suggested therap eutic range for standard coumadin (warfarin) therapy is an INR of 2.0-3.0. For high-risk patients (Mechanical Mitral Valve Prosthesis, etc.), the suggested prophylactic therapeutic range is an INR of 2.5-3.5. Blood BLOOD SPECIMEN / Unknown Lab Venipuncture / Unknown 12/08/2020 1:57 PM EMAIL SPECIALIST 12/08/2020 2:33 PM EMAIL SPECIALIST Carolina Gaston APRN-ROTARY CUTTER FEEDER LAB - [facility] ORDERABLES [facility] [address] [place] [address], [facility] [phone] * SMOOTH MUSCLE ANTIBODY W REFLEX TITER (12/08/2020 1:57 PM EMAIL SPECIALIST) F-Actin Antibody IgG 6 0 - 19 Units 12/10/2020 3:05 PM EMAIL SPECIALIST [facility] [employer] ([facility]) Comment: If F-Actin (Smooth Muscle) Antibody, IgG is negative, the Smooth Muscle Antibody titer by IFA is not performed. REFERENCE INTERVAL: F-Actin (Smooth Muscle) Antibody, IgG by VERONICA 19 Units or less ....... Negative 20 - 30 Units .......... Weak Positive-Suggest repeat testing in two to three weeks with fresh specimen. 31 Units or greater..... Positive-Suggestive of autoimmune hepatitis type 1 or chronic active hepatitis. F-actin IgG antibodies have been shown to have increased sensitivity for autoimmune hepatitis (AIH) but lower specificity than smooth muscle antibodies (SMA). F-actin IgG antibodies can also be seen in SMA-negative disease controls (non-AIH), especially in patients with primary biliary cirrhosis and chronic hepatitis C infections. Some patients with AIH may be SMA-positive but negative for F-actin IgG. Consider testing for SMA by IFA if suspicion for AIH is strong. Performed By: [employer] [address] [place] [address] Primary Teaching Assistant: Ricarda Delgado MD Blood BLOOD SPECIMEN / Unknown Lab Venipuncture / Unknown 12/08/2020 1:57 PM EMAIL SPECIALIST 12/08/2020 2:42 PM EMAIL SPECIALIST Carolina Gaston METAL WELDER-ROTARY CUTTER FEEDER LAB - [facility] ORDERABLES [facility]) [address] * MITOCHONDRIAL ANTIBODY SCREEN (12/08/2020 1:57 PM EMAIL SPECIALIST) Mitochondrial M2 Antibody 3.4 0.0 - 24.9 Units 12/10/2020 3:06 PM EMAIL SPECIALIST [employer] ([facility]) Comment: REFERENCE INTERVAL: Mitochondrial (M2) Antibody, IgG 20.0 Units or less ......... Negative 20.1 - 24.9 Units........... Equivocal 25.0 Units or greater....... Positive Anti-mitochondrial antibodies (AMA) are thought to be present in 90-95% of patients with primary biliary cholangitis (PBC). However, the frequency of detected antibodies may be cohort or assay dependent, as lower sensitivities have been reported. Not all PBC patients are positive for AMA; some patients may be positive for SP100 and/or GP210 antibodies. A negative result does not rule out PBC. Performed By: [employer] [address] [place] [address] Primary Teaching Assistant: Ricrada Delgado MD Blood BLOOD SPECIMEN / Unknown Lab Venipuncture / Unknown 12/08/2020 1:57 PM EMAIL SPECIALIST 12/08/2020 2:42 PM EMAIL SPECIALIST Carolina Gaston METAL WELDER-ROTARY CUTTER FEEDER LAB - CHEMI STRY ORDERABLES [employer] [facility]) [address] [place] [address], [facility] * SILVIA BLOOD SCREEN W/REFLEX TITER (12/08/2020 1:57 PM EMAIL SPECIALIST) ISLVIA IgG None Detected None Detected 12/10/2020 2:43 PM EMAIL SPECIALIST [facility] [employer] ([facility]) Comment: If suspicion of connective tissue disease is strong and SILVIA EIA is negative, consider testing for SILVIA by IFA ([id number]). INTERPRETIVE INFORMATION: Anti-Nuclear Antibodies (SILVIA), IgG by VERONICA Antinuclear Antibodies (SILVIA), IgG by VERONICA: SILVIA specimens are screened using enzyme-linked immunosorbent assay (VERONICA) methodology. All VERONICA results reported as Detected are further tested by indirect fluorescent assay (IFA) using HEp-2 substrate with an IgG-specific conjugate. The SILVIA VERONICA screen is designed to detect antibodies against dsDNA, histones, SS-A (Ro), SS-B (La), Bragg, Bragg/LASER/ELECTRO OPTICS TECHNICIAN, Scl-70, Elli-1, centromeric proteins, other antigens extracted from the HEp-2 cell nucleus. SILVIA VERONICA assays have been reported to have lower sensitivities than SILVIA IFA for systemic autoimmune rheumatic diseases (SARD). Negative results do not necessarily rule out SARD. Performed By: [employer] [address] [place] [address] Primary Teaching Assistant: Ricarda Delgado MD Blood BLOOD SPECIMEN / Unknown Lab Venipuncture / Unknown 12/08/2020 1:57 PM EMAIL SPECIALIST 12/08/2020 2:42 PM EMAIL SPECIALIST Carolina Gaston METAL WELDER-ROTARY CUTTER FEEDER LAB - CHEMI STRY ORDERABLES [facility]) [address] [place] [address], [facility] * MICROSOMAL ANTIBODY LIVER/KIDNEY (12/08/2020 1:57 PM EMAIL SPECIALIST) Liver/Kidney Microsomal Antibody IgG <1:20 <1:20 12/10/2020 4:15 PM EMAIL SPECIALIST [facility] ([facility]) Comment: INTERPRETIVE INFORMATION: Yifdu-Rwmuhl-Kzbgixebr Abs, IgG Liver-Kidney Microsome IgG antibody (anti-LKM), as detected by indirect immunofluorescent antibody (IFA) techniques, may be observed in patients with autoimmune hepatitis type 2 (AIH-2), AIH-2 associated with autoimmune aoztsqtgcrtfcbieaj-hajeefxkizt-mmphswdioi dystrophy (APECED), viral hepatitis C or D, and some forms of drug-induced hepatitis. This IFA does not differentiate among the four types of LKM antibodies (LKM-1, LKM-2, LKM-3, and a fourth type that recognizes CY and CY antigens). Of these, anti-LKM-1 (cytochrome [id number]) IgG antibodies are considered specific for AIH-2. This test was developed and its performance characteristics determined by [employer] It has not been cleared or approved by the US Food and Drug Administration. This test was performed in a CLIA certified laboratory and is intended for clinical purposes. Performed By: [employer] [address] [place] [address] Primary Teaching Assistant: Ricarda Delgado MD Blood BLOOD SPECIMEN / Unknown Lab Venipuncture / Unknown 12/08/2020 1:57 PM EMAIL SPECIALIST 12/08/2020 2:42 PM EMAIL SPECIALIST Carolina Gaston METAL WELDER-ROTARY CUTTER FEEDER LAB - CHEMI STRY ORDERABLES [address] [address], [facility] * TRANSFERRIN (12/08/2020 1:57 PM EMAIL SPECIALIST) Transferrin 289 174 - 382 mg/dL 12/08/2020 3:08 PM EMAIL SPECIALIST [facility] Transferrin Saturation % 29 16 - 50 % 12/08/2020 3:08 PM EMAIL SPECIALIST [facility] Blood BLOOD SPECIMEN / Unknown Lab Venipuncture / Unknown 12/08/2020 1:57 PM EMAIL SPECIALIST 12/08/2020 2:42 PM EMAIL SPECIALIST Carolina Gaston APRN-ROTARY CUTTER FEEDER LAB - CHEMI STRY ORDERABLES [address] [address], [facility] [phone] * CERULOPLASMIN (12/08/2020 1:57 PM EMAIL SPECIALIST) Ceruloplasmin 29 20 - 60 mg/dL 12/08/2020 4:38 PM EMAIL SPECIALIST [facility] Blood BLOOD SPECIMEN / Unknown Lab Venipuncture / Unknown 12/08/2020 1:57 PM EMAIL SPECIALIST 12/08/2020 2:42 PM EMAIL SPECIALIST Carolina Gaston METAL WELDERROTARY CUTTER FEEDER LAB - CHEMI STRY ORDERABLES [address] [address], [facility] [phone] * TKYGR-9-PXNBADYXBOZ BLOOD (12/08/2020 1:57 PM EMAIL SPECIALIST) Didyq-0-Csdcix ypsin 155 90 - 200 mg/dL 12/08/2020 4:38 PM EMAIL SPECIALIST [facility] Blood BLOOD SPECIMEN / Unknown Lab Venipuncture / Unknown 12/08/2020 1:57 PM EMAIL SPECIALIST 12/08/2020 2:42 PM EMAIL SPECIALIST Carolina Gaston METAL WELDER-ROTARY CUTTER FEEDER LAB - CHEMI STRY ORDERABLES [facility] [address] [place] [address], [facility] [phone] * (ABNORMAL) HEPATIC FUNCTION PANEL (12/08/2020 1:57 PM EMAIL SPECIALIST) Protein Total 7.6 6.0 - 8.3 g/dL 2:57 PM [facility] Albumin 4.3 3.4 - 5.0 g/dL 12/08/2020 2:57 PM [facility] Bilirubin Total 0.9 0.2 - 1.2 mg/dL 06/2021 2:57 PM [facility] Bilirubin Conjugated 0.3 0.0 - 0.5 mg/dL 12/08/2020 2:57 PM [facility] Bilirubin Unconjugated 0.6 Unconjugated Bilirubin is a calculated value: Reference ranges have not been established. mg/dL 12/08/2020 2:57 PM [facility] Alkaline Phosphatase 61 40 - 150 Units/L 12/08/2020 2:57 PM [facility] ALT 107(H) 0 - 55 Units/L 12/08/2020 2:57 PM [facility] AST 67(H) 5 - 34 Units/L 12/08/2020 2:57 PM [facility] Albumin/Globulin Ratio 1.3 1.1 - 2.3 12/08/2020 2:57 PM [facility] Blood BLOOD SPECIMEN / Unknown Lab Venipuncture / Unknown 12/08/2020 1:57 PM EMAIL SPECIALIST 12/08/2020 2:32 PM EMAIL SPECIALIST Carolina Gaston METAL WELDER-ROTARY CUTTER FEEDER LAB - CHEMI STRY ORDERABLES [facility] [address] [place] [address], [place] [phone] * IRON BLOOD (12/08/2020 1:57 PM EMAIL SPECIALIST) Iron 104 50 - 175 mcg/dL 12/08/2020 3:08 PM EMAIL SPECIALIST [facility] Blood BLOOD SPECIMEN / Unknown Lab Venipuncture / Unknown 12/08/2020 1:57 PM EMAIL SPECIALIST 12/08/2020 2:42 PM EMAIL SPECIALIST Carolina Gaston METAL WELDER-ROTARY CUTTER FEEDER LAB - CHEMI STRY ORDERABLES [address] [address], [facility] [phone] * HEPATITIS B CORE ANTIBODY (12/08/2020 1:57 PM EMAIL SPECIALIST) HBc Antibody Total Non-reacti ve Non-reacti ve 12/08/2020 3:26 PM EMAIL SPECIALIST [facility] Blood BLOOD SPECIMEN / Unknown Lab Venipuncture / Unknown 12/08/2020 1:57 PM EMAIL SPECIALIST 12/08/2020 2:42 PM EMAIL SPECIALIST Carolina Gaston APRN-ROTARY CUTTER FEEDER LAB - CHEMI STRY ORDERABLES Performing Organization Address [facility]/ZIP Co de Phone Number [address] [address], [place] [phone] * HEPATITIS B SURFACE ANTIGEN W RFLX CONFIRMATION (12/08/2020 1:57 PM EMAIL SPECIALIST) Hepatitis B Virus Surface Antigen Non-reacti ve Non-reacti ve 12/08/2020 3:26 PM EMAIL SPECIALIST [facility] Blood BLOOD SPECIMEN / Unknown Lab Venipuncture / Unknown 12/08/2020 1:57 PM EMAIL SPECIALIST 12/08/2020 2:42 PM EMAIL SPECIALIST Carolina Gaston METAL WELDER-ROTARY CUTTER FEEDER LAB - CHEMI STRY ORDERABLES Performing Organization Address City/[facility]/ZIP Co de Phone Number [address] [address], [place] [phone] * (ABNORMAL) GGT (12/08/2020 1:57 PM EMAIL SPECIALIST) GGT 103(H) 9 - 64 Units/L 12/08/2020 2:57 PM EMAIL SPECIALIST [facility] Blood BLOOD SPECIMEN / Unknown Lab Venipuncture / Unknown 12/08/2020 1:57 PM EMAIL SPECIALIST 12/08/2020 2:32 PM EMAIL SPECIALIST Carolina Gaston METAL WELDER-ROTARY CUTTER FEEDER LAB - CHEMI STRY ORDERABLES [address] [address], [place] [phone] * IGG BLOOD (12/08/2020 1:57 PM EMAIL SPECIALIST) IgG 1,272 540-1,822 mg/dL 12/08/2020 3:07 PM EMAIL SPECIALIST [facility] Blood BLOOD SPECIMEN / Unknown Lab Venipuncture / Unknown 12/08/2020 1:57 PM EMAIL SPECIALIST 12/08/2020 2:42 PM EMAIL SPECIALIST Carolina Gaston APRN-ROTARY CUTTER FEEDER LAB - CHEMI STRY ORDERABLES Performing Organization Address [facility]/ZIP Co de Phone Number [address] [address], [place] [phone] * (ABNORMAL) FERRITIN (12/08/2020 1:57 PM EMAIL SPECIALIST) Ferritin 296(H) 22 - 275 ng/mL 12/08/2020 3:26 PM EMAIL SPECIALIST [facility] Blood BLOOD SPECIMEN / Unknown Lab Venipuncture / Unknown 12/08/2020 1:57 PM EMAIL SPECIALIST 12/08/2020 2:42 PM EMAIL SPECIALIST Carolina Gaston METAL WELDER-ROTARY CUTTER FEEDER LAB - CHEMI STRY ORDERABLES Performing Organization Address City/[facility]/ZIP Co de Phone Number [address] [address], [place] [phone]
--- OUTSIDE RECORDS SUMMARY | 2024-12-18 20:41 | XMS_ITS | Referral Summary ---
Author Organization [facility] Address [address] [place] [address] Care Team Providers Care Sheep Farm Manager Name Role Phone Unavailable Primary Care Provider Unavailabl e Source Comments [facility],non-owned Affiliates and Associated Physician Practices is amultiple site organization consisting of ambulatory clinics and hospital sitesin [place], [place], [place] and [place]. This disclosure is being madepursuant to the Care Everywhere program and may not contain all information available regarding this patient. Last updated 18.[facility] [email or web address] Allergies Active Allergy Reactions Criticality Noted Date [...] 36.2 C (97.1 F) 12/08/2020 12:45 PM ANGLESMITH Respiratory Rate 18 03/16/2021 12:23 PM CDT Oxygen Saturation 98% 03/16/2021 12:23 PM CDT Inhaled Oxygen Concentration - - Weight 103.9 kg (229 lb) 03/16/2021 12:23 PM CDT Height 185.4 cm (6' 1 ) 12/08/2020 12:45 PM ANGLESMITH Body Mass Index 30.21 12/08/2020 12:45 PM ANGLESMITH Plan of Treatment Not on file Goals Goal Patient Goal Type Associated Problems Recent Progress Patient-Stated? Author Medication Management General On track( 021 12:26 PM CDT) Michelle Perry, RN Note: Expected end date: Ongoing Interventions: Take all medications as prescribed Let your doctor know right away about any changes in your medications Make sure to request a refill of your medication at least one week prior to your last dose ALONZO,YANG Personal/Family [address] [place] [address] LAONZO,YANG Personal/Family [address] [place] [address] ALONZO,YANG Personal/Family [address] [place] [address]
[2024-12-18 20:46] VITALS: BP 168/81; PULSE 111; RESP 19; O2SAT 100
[2024-12-18 20:51] VITALS: BP 168/81; PULSE 113; PULSE 126; RESP 20; O2SAT 100
--- NOTE | 2024-12-18 21:01 | ECG_ITS ---
Test Date: 2024-12-18 21:04:03 Measurements Intervals [place] Rate: 105 P: 23 DE: 170 QRS: -86 QRSD: 138 T: 23 QT: 347 QTc: 460 Interpretive Statements SINUS TACHYCARDIA RIGHT BUNDLE BRANCH BLOCK LEFT ANTERIOR FASCICULAR BLOCK BASELINE ARTIFACT- V3 ABNORMAL ECG Compared to ECG 09/27/2024 20:21:16 HEART RATE HAS INCREASED Left anterior fascicular block now present Electronically Signed On 12-19-2024 07:40:11 DATABASE REPORTING CONSULTANT by Chucky Carmen D.O.
--- OUTSIDE RECORDS SUMMARY | 2024-12-18 21:04 | XMS_ITS | Clinical Summary ---
Author Organization [facility] Address [address] [place] [address] Care Team Providers Care Occupational Therapy Assistant Name Role Phone Unavailable Primary Care Provider Unavailabl e Source Comments [facility],non-owned Affiliates and Associated Physician Practices is amultiple site organization consisting of ambulatory clinics and hospital sitesin [place], [place], [place] and [place]. This disclosure is being madepursuant to the Care Everywhere program and may not contain all information available regarding this patient. Last updated 18.[facility] [employer] Allergies Active Allergy Reactions Criticality Noted Date [...] 36.2 C (97.1 F) 12/08/2020 12:45 PM CURRICULUM AND INSTRUCTION SPECIALIST Respiratory Rate 18 03/16/2021 12:23 PM CDT Oxygen Saturation 98% 03/16/2021 12:23 PM CDT Inhaled Oxygen Concentration - - Weight 103.9 kg (229 lb) 03/16/2021 12:23 PM CDT Height 185.4 cm (6' 1 ) 12/08/2020 12:45 PM CURRICULUM AND INSTRUCTION SPECIALIST Body Mass Index 30.21 12/08/2020 12:45 PM CURRICULUM AND INSTRUCTION SPECIALIST Plan of Treatment Health Maintenance Due Date [...] topic MENINGOCOCCAL VACCINE Aged Out No nieves markus eligible based [...] dose YANG ROSADO Personal/Family [address] [place] [address] YANG ROSADO Personal/Family [address] [place] [address] YANG ROSADO Personal/Family [phone] ([place]) [address] [place] [address]
--- OUTSIDE RECORDS SUMMARY | 2024-12-18 21:04 | XMS_ITS | Patient Health Summary ---
Author Organization [facility] Address [address] [place] [address] Care Team Providers Care Payroll And Benefits Analyst Name Role Phone Unavailable Primary Care Provider Unavailabl e Note from [facility] [place] [facility] [place]non-owned Affiliates and Associated Physician Practices is amultiple site organization consisting of ambulatory clinics and hospital sitesin [place], [place], [place] and [place]. This disclosure is being madepursuant to the Care Everywhere program and may not contain all information available regarding this patient. Last updated 18.[facility] [place] Allergies * Penicillins(Unknown) Medications * Be aware [...] 36.2 C (97.1 F) 12/08/2020 12:45 PM PSYCHIATRIC NURSING ASSISTANT Respiratory Rate 18 03/16/2021 12:23 PM CDT Oxygen Saturation 98% 03/16/2021 12:23 PM CDT Inhaled Oxygen Concentration - - Weight 103.9 kg (229 lb) 03/16/2021 12:23 PM CDT Height 185.4 cm (6' 1 ) 12/08/2020 12:45 PM PSYCHIATRIC NURSING ASSISTANT Body Mass Index 30.21 12/08/2020 12:45 PM PSYCHIATRIC NURSING ASSISTANT Procedures * TN LIVER ELASTOGRAPHY(Performed 03/16/2021) Performed for Elevated liver enzymes * [id number]-[id number]-ELCRIOUOGJS BLOOD(Performed 12/08/2020) Performed for Elevated liver enzymes, [...] Technical Difficulty: None Ordering Provider: Carolina Gaston MEDICAL SCIENCE LIAISON Phone Fax Fibroscan interpretation: I have personally [...] patients with nonalcoholic fatty liver disease. Gastroenterology 2019;156:3246-1067. Miles MS, Sergio R, Van Mariaelena ML, [...] FIB4 score (Kierrauke et al. [employer] 2019;3:7860-5641) or NAFLD Fibrosis score (Ruano et al. Clinical Gastroenterology and Hepatology 2019;17:6988-2754. from routine clinical data. 3. Liver stiffness [...] change as additional supporting data becomes available. [email or web address] Carolina Gaston FRENCH BINDING FOLDER-PRODUCT SAFETY SPECIALIST PROCEDURE/M INOR SURGICAL ORDERABLES * PT-INR [facility] (12/08/2020 1:57 PM PSYCHIATRIC NURSING ASSISTANT) PT 13.5 12.1 - 14.8 Seconds 12/08/2020 2:42 PM PSYCHIATRIC NURSING ASSISTANT [facility] INR 1.1 See Comment 12/08/2020 2:42 PM PSYCHIATRIC NURSING ASSISTANT [facility] Comment:The suggested therap eutic range for standard coumadin (warfarin) therapy is an INR of 2.0-3.0. For high-risk patients (Mechanical Mitral Valve Prosthesis, etc.), the suggested prophylactic therapeutic range is an INR of 2.5-3.5. Blood BLOOD SPECIMEN / Unknown Lab Venipuncture / Unknown 12/08/2020 1:57 PM PSYCHIATRIC NURSING ASSISTANT 12/08/2020 2:33 PM PSYCHIATRIC NURSING ASSISTANT Carolina Gaston APRN-PRODUCT SAFETY SPECIALIST LAB - [facility] ORDERABLES [facility] [address] [place] [address], [facility] [phone] * SMOOTH MUSCLE ANTIBODY W REFLEX TITER (12/08/2020 1:57 PM PSYCHIATRIC NURSING ASSISTANT) F-Actin Antibody IgG 6 0 - 19 Units 12/10/2020 3:05 PM PSYCHIATRIC NURSING ASSISTANT [facility] [employer] ([facility]) Comment: If F-Actin (Smooth Muscle) Antibody, IgG [...] suspicion for AIH is strong. Performed By: [employer] [address] [place] [address] Bleacher Operator: Ricarda Delgado MD Blood BLOOD SPECIMEN / Unknown Lab Venipuncture / Unknown 12/08/2020 1:57 PM PSYCHIATRIC NURSING ASSISTANT 12/08/2020 2:42 PM PSYCHIATRIC NURSING ASSISTANT Carolina Gaston FRENCH BINDING FOLDER-PRODUCT SAFETY SPECIALIST LAB - [facility] ORDERABLES [facility]) [address] * MITOCHONDRIAL ANTIBODY SCREEN (12/08/2020 1:57 PM PSYCHIATRIC NURSING ASSISTANT) Mitochondrial M2 Antibody 3.4 0.0 - 24.9 Units 12/10/2020 3:06 PM PSYCHIATRIC NURSING ASSISTANT [employer] ([facility]) Comment: REFERENCE INTERVAL: Mitochondrial (M2) Antibody, IgG [...] does not rule out PBC. Performed By: [employer] [address] [place] [address] Bleacher Operator: Ricarda Delgado MD Blood BLOOD SPECIMEN / Unknown Lab Venipuncture / Unknown 12/08/2020 1:57 PM PSYCHIATRIC NURSING ASSISTANT 12/08/2020 2:42 PM PSYCHIATRIC NURSING ASSISTANT Carolina Gaston FRENCH BINDING FOLDER-PRODUCT SAFETY SPECIALIST LAB - CHEMI STRY ORDERABLES [employer] [facility]) [address] [place] [address], [facility] * SILVIA BLOOD SCREEN W/REFLEX TITER (12/08/2020 1:57 PM PSYCHIATRIC NURSING ASSISTANT) SILVIA IgG None Detected None Detected 12/10/2020 2:43 PM PSYCHIATRIC NURSING ASSISTANT [facility] [employer] ([facility]) Comment: If suspicion of connective tissue disease is strong and SILVIA EIA is negative, consider testing for SILVIA by IFA ([id number]). INTERPRETIVE INFORMATION: Anti-Nuclear Antibodies (SILVIA), IgG by VERONICA Antinuclear Antibodies (SILVIA), IgG by VERONICA: SILVIA specimens are screened using enzyme-linked immunosorbent assay (VERONICA) methodology. All VERONICA results reported as Detected are further tested by indirect fluorescent assay (IFA) using HEp-2 substrate with an IgG-specific conjugate. The SILVIA VERONICA screen is designed to detect antibodies against dsDNA, histones, SS-A (Ro), SS-B (La), Bragg, Bragg/CHOIR DIRECTOR, Scl-70, Elli-1, centromeric proteins, other antigens extracted from the HEp-2 cell nucleus. SILVIA VERONICA assays have been reported to have lower sensitivities than SILVIA IFA for systemic autoimmune rheumatic diseases (SARD). Negative results do not necessarily rule out SARD. Performed By: [employer] [address] [place] [address] Bleacher Operator: Ricarda Delgado MD Blood BLOOD SPECIMEN / Unknown Lab Venipuncture / Unknown 12/08/2020 1:57 PM PSYCHIATRIC NURSING ASSISTANT 12/08/2020 2:42 PM PSYCHIATRIC NURSING ASSISTANT Carolina Gaston FRENCH BINDING FOLDER-PRODUCT SAFETY SPECIALIST LAB - CHEMI STRY ORDERABLES [facility]) [address] [place] [address], [facility] * MICROSOMAL ANTIBODY LIVER/KIDNEY (12/08/2020 1:57 PM PSYCHIATRIC NURSING ASSISTANT) Liver/Kidney Microsomal Antibody IgG <1:20 <1:20 12/10/2020 4:15 PM PSYCHIATRIC NURSING ASSISTANT [facility] ([facility]) Comment: INTERPRETIVE INFORMATION: Qdxlc-Jytqgr-Eupftaaii Abs, IgG Liver-Kidney Microsome IgG antibody (anti-LKM), as detected by indirect immunofluorescent antibody (IFA) techniques, may be observed in patients with autoimmune hepatitis type 2 (AIH-2), AIH-2 associated with autoimmune bcrnlplyrhedvzsxtl-qguscfmwszc-nonfyvafeo dystrophy (APECED), viral hepatitis C or D, and some forms of drug-induced hepatitis. This IFA does not differentiate among the four types of LKM antibodies (LKM-1, LKM-2, LKM-3, and a fourth type that recognizes CY and CY antigens). Of these, anti-LKM-1 (cytochrome [id number]) IgG antibodies are considered specific for AIH-2. This test was developed and its performance characteristics determined by [employer]. It has not been cleared or approved by the US Food and Drug Administration. This test was performed in a CLIA certified laboratory and is intended for clinical purposes. Performed By: [employer] [address] [place] [address] Bleacher Operator: Ricarda Delgado MD Blood BLOOD SPECIMEN / Unknown Lab Venipuncture / Unknown 12/08/2020 1:57 PM PSYCHIATRIC NURSING ASSISTANT 12/08/2020 2:42 PM PSYCHIATRIC NURSING ASSISTANT Carolina Gaston FRENCH BINDING FOLDER-PRODUCT SAFETY SPECIALIST LAB - CHEMI STRY ORDERABLES [address] [address], [facility] * TRANSFERRIN (12/08/2020 1:57 PM PSYCHIATRIC NURSING ASSISTANT) Transferrin 289 174 - 382 mg/dL 12/08/2020 3:08 PM PSYCHIATRIC NURSING ASSISTANT [facility] Transferrin Saturation % 29 16 - 50 % 12/08/2020 3:08 PM PSYCHIATRIC NURSING ASSISTANT [facility] Blood BLOOD SPECIMEN / Unknown Lab Venipuncture / Unknown 12/08/2020 1:57 PM PSYCHIATRIC NURSING ASSISTANT 12/08/2020 2:42 PM PSYCHIATRIC NURSING ASSISTANT Carolina Gaston APRN-PRODUCT SAFETY SPECIALIST LAB - CHEMI STRY ORDERABLES [address] [address], [facility] [phone] * CERULOPLASMIN (12/08/2020 1:57 PM PSYCHIATRIC NURSING ASSISTANT) Ceruloplasmin 29 20 - 60 mg/dL 12/08/2020 4:38 PM PSYCHIATRIC NURSING ASSISTANT [facility] Blood BLOOD SPECIMEN / Unknown Lab Venipuncture / Unknown 12/08/2020 1:57 PM PSYCHIATRIC NURSING ASSISTANT 12/08/2020 2:42 PM PSYCHIATRIC NURSING ASSISTANT Carolina Gaston FRENCH BINDING FOLDERPRODUCT SAFETY SPECIALIST LAB - CHEMI STRY ORDERABLES [address] [address], [facility] [phone] * CKJTZ-8-ECZBAFORIYF BLOOD (12/08/2020 1:57 PM PSYCHIATRIC NURSING ASSISTANT) Eohoo-4-Ayjlxl ypsin 155 90 - 200 mg/dL 12/08/2020 4:38 PM PSYCHIATRIC NURSING ASSISTANT [facility] Blood BLOOD SPECIMEN / Unknown Lab Venipuncture / Unknown 12/08/2020 1:57 PM PSYCHIATRIC NURSING ASSISTANT 12/08/2020 2:42 PM PSYCHIATRIC NURSING ASSISTANT Carolina Gaston FRENCH BINDING FOLDER-PRODUCT SAFETY SPECIALIST LAB - CHEMI STRY ORDERABLES [facility] [address] [place] [address], [facility] [phone] * (ABNORMAL) HEPATIC FUNCTION PANEL (12/08/2020 1:57 PM PSYCHIATRIC NURSING ASSISTANT) Protein Total 7.6 6.0 - 8.3 g/dL 2:57 PM [facility] Albumin 4.3 3.4 - 5.0 g/dL 12/08/2020 2:57 PM [facility] Bilirubin Total 0.9 0.2 - 1.2 mg/dL 06/2021 2:57 PM [facility] Bilirubin Conjugated 0.3 0.0 - 0.5 mg/dL 12/08/2020 2:57 PM [facility] Bilirubin Unconjugated 0.6 Unconjugated Bilirubin is a calculated value: Reference ranges have not been established. mg/dL 12/08/2020 2:57 PM [facility] Alkaline Phosphatase 61 40 - 150 Units/L 12/08/2020 2:57 PM [facility] ALT 107(H) 0 - 55 Units/L 12/08/2020 2:57 PM [facility] AST 67(H) 5 - 34 Units/L 12/08/2020 2:57 PM [facility] Albumin/Globulin Ratio 1.3 1.1 - 2.3 12/08/2020 2:57 PM [facility] Blood BLOOD SPECIMEN / Unknown Lab Venipuncture / Unknown 12/08/2020 1:57 PM PSYCHIATRIC NURSING ASSISTANT 12/08/2020 2:32 PM PSYCHIATRIC NURSING ASSISTANT Carolina Gaston FRENCH BINDING FOLDER-PRODUCT SAFETY SPECIALIST LAB - CHEMI STRY ORDERABLES [facility] [address] [place] [address], [place] [phone] * IRON BLOOD (12/08/2020 1:57 PM PSYCHIATRIC NURSING ASSISTANT) Iron 104 50 - 175 mcg/dL 12/08/2020 3:08 PM PSYCHIATRIC NURSING ASSISTANT [facility] Blood BLOOD SPECIMEN / Unknown Lab Venipuncture / Unknown 12/08/2020 1:57 PM PSYCHIATRIC NURSING ASSISTANT 12/08/2020 2:42 PM PSYCHIATRIC NURSING ASSISTANT Carolina Gaston FRENCH BINDING FOLDER-PRODUCT SAFETY SPECIALIST LAB - CHEMI STRY ORDERABLES [address] [address], [facility] [phone] * HEPATITIS B CORE ANTIBODY (12/08/2020 1:57 PM PSYCHIATRIC NURSING ASSISTANT) HBc Antibody Total Non-reacti ve Non-reacti ve 12/08/2020 3:26 PM PSYCHIATRIC NURSING ASSISTANT [facility] Blood BLOOD SPECIMEN / Unknown Lab Venipuncture / Unknown 12/08/2020 1:57 PM PSYCHIATRIC NURSING ASSISTANT 12/08/2020 2:42 PM PSYCHIATRIC NURSING ASSISTANT Carolina Gaston APRN-PRODUCT SAFETY SPECIALIST LAB - CHEMI STRY ORDERABLES Performing Organization Address [facility]/ZIP Co de Phone Number [address] [address], [place] [phone] * HEPATITIS B SURFACE ANTIGEN W RFLX CONFIRMATION (12/08/2020 1:57 PM PSYCHIATRIC NURSING ASSISTANT) Hepatitis B Virus Surface Antigen Non-reacti ve Non-reacti ve 12/08/2020 3:26 PM PSYCHIATRIC NURSING ASSISTANT [facility] Blood BLOOD SPECIMEN / Unknown Lab Venipuncture / Unknown 12/08/2020 1:57 PM PSYCHIATRIC NURSING ASSISTANT 12/08/2020 2:42 PM PSYCHIATRIC NURSING ASSISTANT Carolina Gaston FRENCH BINDING FOLDER-PRODUCT SAFETY SPECIALIST LAB - CHEMI STRY ORDERABLES Performing Organization Address City/[facility]/ZIP Co de Phone Number [address] [address], [place] [phone] * (ABNORMAL) GGT (12/08/2020 1:57 PM PSYCHIATRIC NURSING ASSISTANT) GGT 103(H) 9 - 64 Units/L 12/08/2020 2:57 PM PSYCHIATRIC NURSING ASSISTANT [facility] Blood BLOOD SPECIMEN / Unknown Lab Venipuncture / Unknown 12/08/2020 1:57 PM PSYCHIATRIC NURSING ASSISTANT 12/08/2020 2:32 PM PSYCHIATRIC NURSING ASSISTANT Carolina Gaston FRENCH BINDING FOLDER-PRODUCT SAFETY SPECIALIST LAB - CHEMI STRY ORDERABLES [address] [address], [place] [phone] * IGG BLOOD (12/08/2020 1:57 PM PSYCHIATRIC NURSING ASSISTANT) IgG 1,272 540-1,822 mg/dL 12/08/2020 3:07 PM PSYCHIATRIC NURSING ASSISTANT [facility] Blood BLOOD SPECIMEN / Unknown Lab Venipuncture / Unknown 12/08/2020 1:57 PM PSYCHIATRIC NURSING ASSISTANT 12/08/2020 2:42 PM PSYCHIATRIC NURSING ASSISTANT Carolina Gaston APRN-PRODUCT SAFETY SPECIALIST LAB - CHEMI STRY ORDERABLES Performing Organization Address [facility]/ZIP Co de Phone Number [address] [address], [place] [phone] * (ABNORMAL) FERRITIN (12/08/2020 1:57 PM PSYCHIATRIC NURSING ASSISTANT) Ferritin 296(H) 22 - 275 ng/mL 12/08/2020 3:26 PM PSYCHIATRIC NURSING ASSISTANT [facility] Blood BLOOD SPECIMEN / Unknown Lab Venipuncture / Unknown 12/08/2020 1:57 PM PSYCHIATRIC NURSING ASSISTANT 12/08/2020 2:42 PM PSYCHIATRIC NURSING ASSISTANT Carolina Gaston FRENCH BINDING FOLDER-PRODUCT SAFETY SPECIALIST LAB - CHEMI STRY ORDERABLES Performing Organization Address City/[facility]/ZIP Co de Phone Number [address] [address], [place] [phone]
--- OUTSIDE RECORDS SUMMARY | 2024-12-18 21:04 | XMS_ITS | Referral Summary ---
Author Organization [facility] Address [address] [place] [address] Care Team Providers Care Cp Bleacher Operator Name Role Phone Unavailable Primary Care Provider Unavailabl e Source Comments [facility],non-owned Affiliates and Associated Physician Practices is amultiple site organization consisting of ambulatory clinics and hospital sitesin [place], [place] and [place]. This disclosure is being madepursuant to the Care Everywhere program and may not contain all information available regarding this patient. Last updated 18.[facility] Allergies Active Allergy Reactions Criticality Noted Date [...] 36.2 C (97.1 F) 12/08/2020 12:45 PM TALENT BUYER Respiratory Rate 18 03/16/2021 12:23 PM CDT Oxygen Saturation 98% 03/16/2021 12:23 PM CDT Inhaled Oxygen Concentration - - Weight 103.9 kg (229 lb) 03/16/2021 12:23 PM CDT Height 185.4 cm (6' 1 ) 12/08/2020 12:45 PM TALENT BUYER Body Mass Index 30.21 12/08/2020 12:45 PM TALENT BUYER Plan of Treatment Not on file Goals [...] your last dose ALONZO,YANG Personal/Family [address] [place] [address] ALONZO,YANG Personal/Family [address] [place] [address] ALONZO,YANG Personal/Family [address] [place] [address]
--- OUTSIDE RECORDS SUMMARY | 2024-12-18 21:04 | XMS_ITS | Clinical Summary ---
Author Organization [facility] Address [address] [place] [address] Care Team Providers Care Mammography Technician Name Role Phone Allen Juarez DO Primary Care Provider [phone] Allergies Active Allergy Reactions Criticality Noted Date [...] on file Legal Sex Male 9:51 AM PAIL BAILER Gender Identity Not on file Sexual Orientation Not on file Last Filed Vital Signs Vital Sign Reading Time Taken Comments Blood Pressure 147/80 11/22/2021 10:36 AM PAIL BAILER Pulse 75 11/22/2021 10:36 AM PAIL BAILER Temperature 36.2 C (97.2 F) 11/22/2021 9:21 AM PAIL BAILER Respiratory Rate 18 11/22/2021 9:21 AM PAIL BAILER Oxygen Saturation 98% 11/22/2021 10:36 AM PAIL BAILER Inhaled Oxygen Concentration - - Weight 99.8 kg (220 lb) 11/17/2021 11:59 AM PAIL BAILER Height 185.4 cm (6' 1 ) 11/17/2021 11:59 AM PAIL BAILER Body Mass Index 29.03 11/17/2021 11:59 AM PAIL BAILER Plan of Treatment Health Maintenance Due Date [...] this topic Medical Devices Implanted Type Area Finance Teacher Device Identifier Shelf Expiration Date Model / Serial / Lot Trifocal Intraocular Lens Implanted:Qty: 1 on 11/22/2021 by Jordan Sims MD at [facility] Left: Eye 03/29/2024 [id number] / [id number] / Insurance GENERIC - COMMERCIAL [employer] Care Teams Mammography Technician Relationship Specialty Start Date End Date Allen Juarez DO [address] [address] PCP - General INTERNAL MEDICINE 11/22/21
[2024-12-18] MEDS: SODIUM CHLORIDE 0.9% IV 1,000 ML 999 ML IV CONT (21:13)
[2024-12-18] MEDS: diazePAM INJ (*CRX) 10 MG/2 ML SYRINGE 5 MG IM (21:15)
[2024-12-18 21:31] LABS: Basophils Absolute Auto 0.1 K/mm3 (0.0-0.1); Basophils Percent Auto 1.2 % (0.2-1.2); Eosinophils Absolute Auto 0.3 K/mm3 (0-0.3); Eosinophils Percent Auto 2.3 % (0-4.4); Hematocrit 40.4 % (42.0-52.0); Hemoglobin 13.6 g/dL (14.0-18.0); Immature Granulocyte Absolute 0.06 K/mm3 (0.00-0.031); Immature Granulocyte Percent A 0.5 % (0-0.5); Lymphocytes Absolute Auto 3.69 K/mm3 (0.9-3.2); Lymphocytes Percent Auto 30.8 % (18.3-44.2); Mean Corpuscular HGB Conc 33.7 g/dl (32-36); Mean Corpuscular Hemoglobin 32.8 pg (26-34); Mean Corpuscular Volume 97.3 fl (80-100); Mean Platelet Volume 9.3 fl (7.4-10.4); Monocytes Absolute Auto 1.9 K/mm3 (0.1-0.6); Monocytes Percent Auto 15.9 % (2.6-8.5); Neutrophils Absolute Auto 5.9 K/mm3 (1.3-6.7); Neutrophils Percent Auto 49.3 % (45.5-73.1); Platelet Count Result 267 k/mm3 (150-375); Red Blood Count 4.15 M/mm3 (4.6-6.20); Red Cell Distribution Width 15.5 % (11.5-14.5)
[2024-12-18 21:42] LABS: Alanine Aminotransferase 23 U/L (6-50); Albumin Level 4.7 g/dL (3.5-5.1); Alkaline Phosphatase 70 U/L (38-126); Anion Gap 9 mmol/L (4-12); Aspartate Amino Transferase 29 U/L (17-59); Bilirubin,Total 0.8 mg/dL (0.2-1.3); Blood Urea Nitrogen 33 mg/dL (9-20); Calcium 10.1 mg/dL (8.4-10.2); Carbon Dioxide 27 mmol/L (22-30); Chloride 107 mmol/L (98-107); Estimated CRCL calculation 85 ml/min; Estimated Glomerular Filt Rate > 60; Glucose 118 mg/dL (65-110); Lipase 342 U/L (23-300); Magnesium 2.1 mg/dL (1.6-2.3); Phosphorus 5.3 mg/dL (2.5-4.5); Potassium 3.8 mmol/L (3.4-5.0); Prothrombin Time 13.9 Seconds (11.1-14.7); Sodium 143 mmol/L (137-145)
[2024-12-18 21:43] LABS: Partial Thromboplastin Time 28.7 Seconds (22.3-36.8)
[2024-12-18 21:53] LABS: Troponin I 0.017 ng/mL (0.000-0.034)
[2024-12-18 21:55] LABS: D Dimer 0.44 ug/mL (<0.48)
[2024-12-18 22:00] LABS: Strep Group A RT-PCR NOT DETECTED (Negative)
[2024-12-18 22:09] LABS: Ethanol < 10 mg/dL (<10); Influenza A QL RT-PCR Negative (Negative); Influenza B QL RT-PCR Negative (Negative); RSV RNA, RT-PCR Negative (Negative); SARS-CoV-2 RNA PCR Negative (Negative)
[2024-12-18 22:19] VITALS: BP 129/65; PULSE 83; RESP 29; O2SAT 99
[2024-12-18 22:25] LABS: Thyroid Stimulating Hormone Reflex 0.979 uIU/mL (0.465-4.68)
--- NOTE | 2024-12-18 22:38 | PC.NURSE ---
Pt asked multiple times for urine sample. Pt advised that a straight cath will be needed if he can not provide one. Pt refused straight cath.
--- NOTE | 2024-12-18 23:03 | ED_ITS ---
HPI - General Adult General Chief complaint: Arrhythmia/Palpitations Stated complaint: HEART FLUCTUATIONS Time Seen by Provider: 12/18/24 20:45 History of Present Illness HPI narrative: This is a 73-year-old male presenting ED with chief complaint of ?feeling strange and goofy. ? Patient started feeling strange just prior to arrival. Thought that he heard a taking noise and could not find a source of in his house. He then realized that he was his heart. He then got a stethoscope was started listening to his heart and notice that the rate was increasing and decreasing anywhere from 80-120. Patient has no other symptoms such as fevers chills URI symptoms chest pain difficulty breathing abdominal pain or urinary symptoms. Patient is recently been diagnosed with seizures and this is causing him significant anxiety about his health. Related Data Home Medications ?Medication ?Instructions ?Recorded ?Confirmed ?Last Taken ?Type cholecalciferol (vitamin D3) 25 25 mcg PO DAILY 03/07/24 10/04/24 Unknown History mcg (1,000 unit) capsule multivitamin 1 tablet PO DAILY 03/07/24 10/04/24 Unknown History lamotrigine 100 mg tablet 300 mg PO DAILY 06/25/24 10/04/24 Unknown History Allergies Allergy/AdvReac Type Severity Reaction Status Date / Time Penicillins Allergy Severe Anaphylactic Verified 12/18/24 20:40 Shock PMFSH Past Medical History Medical History Radiation proctitis Hemorrhoid Sacral fracture Impacted cerumen of both ears Hx of malignant neoplasm of prostate Seizure disorder Encounter for general adult medical examination without abnormal findings Screening for malignant neoplasm of prostate Screening for malignant neoplasm of colon Obesity (BMI 30.0-34.9) Immunization due Elevated liver enzymes Prostate cancer Elevated PSA Abnormal liver function test Seizure disorder (~2016) Family History Family History Mother Diabetes mellitus Sibling Family history of cardiovascular disease Father Family history of kidney disease Social History Social History Social History: Caffeine-coffee daily Smoking packs per day: 1 Smoking cigarettes per day: 20.0 Years smoked: 10 Smoking pack-years: 10.00 Smoking status: Former smoker Tobacco type: cigarettes Second hand tobacco smoke exposure: No Smoking end date: 10/30/76 Alcohol intake: current Drinks per week: 3 Alcohol use details: rare Substance use: former Substance use type: does not use Last use: 01/02/24 Do You Feel Safe in your Home?: Yes Lack of Transportation: No Lack of Food: Never True Current Housing: I Have Housing Concerned About Future Housing: No Difficulty Paying Gas/Electric Bills: No Difficulty Paying for Meds: No Currently Unemployed: No Education: Don't Know Difficulty w/ Childcare or Family Care: No Living arrangements: with family Occupation/Education: retired Additional occupation/education comments: [employer] work Gender identity (if verbalized by the patient): Male Spiritual care concerns: No Agree to blood products: Yes Exam 2 Narrative: APPEARANCE: Anxious. Head: atraumatic. EYES: EOMI, NOSE: Atraumatic NECK: Trachea midline RESPIRATORY: No increased rate of breathing clear to auscultation CARDIOVASCULAR: RRR, no peripheral edema ABDOMINAL: Non-distended soft nontender MUSCULOSKELETAl: No obvious deformities NEURO: Alert. Cranial nerves 2-12 grossly intact. Sensation light touch, motor function cerebellar function intact for 4 extremities. Gait exam was normal. SKIN:: Warm, dry. Normal color PSYCHIATRIC: Anxious. Course Vital Signs Vital signs: Vital Signs Pulse Rate 111 H 12/18/24 20:46 Respiratory Rate 19 12/18/24 20:46 Blood Pressure 168/81 H 12/18/24 20:46 Pulse Oximetry 100 12/18/24 20:46 Oxygen Delivery Room Air 12/18/24 20:46 Pulse Rate 79 12/19/24 01:39 Respiratory Rate 20 12/19/24 01:39 Blood Pressure 149/78 H 12/19/24 01:39 Pulse Oximetry 97 12/19/24 01:39 Oxygen Delivery Room Air 12/18/24 20:46 Medical Decision Making MDM Narrative Medical decision making narrative: -Course: 73-year-old male presenting with feeling finding. Patient tachycardic arrival. Anxious appearing. Physical exam unremarkable physical exam. Broad workup obtained due to vague symptoms. Given Valium for anxiety. After the patient received Valium his heart rate improved from 110-120 -> 80. Broad workup was ordered including CT head, chest x-ray, EKG, laboratory studies , and urinalysis due to his vague symptoms. Workup was negative. Patient did have difficulty urinating had to be straight cathed eventually. I discussed placing a ortez w/ leg bag for urinary retention and the patient has declined. He says he does not usually have issues urinating and would rather just come back if he is unable to urinate at home. Results were discussed with the patient and his family. This time cannot find a reason for his odd feelings. He did seem to respond to Valium well. Patient will be discharged to follow-up with primary care physician. Given return precautions for urinary retention or any new or worsening symptoms. -DDX includes but is not limited to: Anxiety, CVA, viral illness, vascular dementia, dehydration sepsis UTI pneumonia Vital Signs Vital Signs: Vital Signs Pulse Rate 111 H 12/18/24 20:46 Respiratory Rate 19 12/18/24 20:46 Blood Pressure 168/81 H 12/18/24 20:46 Pulse Oximetry 100 12/18/24 20:46 Oxygen Delivery Room Air 12/18/24 20:46 Pulse Rate 79 12/19/24 01:39 Respiratory Rate 20 12/19/24 01:39 Blood Pressure 149/78 H 12/19/24 01:39 Pulse Oximetry 97 12/19/24 01:39 Oxygen Delivery Room Air 12/18/24 20:46 Lab Data 12/18/24 21:14 12/18/24 21:14 Labs: Lab Results 12/18/24 12/18/24 12/19/24 Range/Units 21:14 21:21 00:27 WBC 12.0 H (4.5-10.0) K/mm3 RBC 4.15 L (4.6-6.20) M/mm3 Hgb 13.6 L (14.0-18.0) g/dL Hct 40.4 L (42.0-52.0) % MCV 97.3 (80-100) fl MCH 32.8 (26-34) pg MCHC 33.7 (32-36) g/dl RDW 15.5 H (11.5-14.5) % Plt Count 267 (150-375) k/mm3 MPV 9.3 (7.4-10.4) fl Immature Gran % (Auto) 0.5 (0-0.5) % Neut % (Auto) 49.3 (45.5-73.1) % Lymph % (Auto) 30.8 (18.3-44.2) % [place] % (Auto) 15.9 H (2.6-8.5) % Eos % (Auto) 2.3 (0-4.4) % Baso % (Auto) 1.2 (0.2-1.2) % Lymph # (Auto) 3.69 H (0.9-3.2) K/mm3 [place] # (Auto) 1.9 H (0.1-0.6) K/mm3 Eos # (Auto) 0.3 (0-0.3) K/mm3 Baso # (Auto) 0.1 (0.0-0.1) K/mm3 Abs Immat Gran (auto) 0.06 H (0.00-0.031) K/mm3 Absolute Neuts (auto) 5.9 (1.3-6.7) K/mm3 Absolute Nucleated RBC 0.000 (0.0-0.012) K/mm3 Nucleated RBC % 0.0 (0.0-0.2) % PT 13.9 (11.1-14.7) Seconds INR 1.0 APTT 28.7 (22.3-36.8) Seconds D-Dimer 0.44 (<0.48) ug/mL Sodium 143 (137-145) mmol/L Potassium 3.8 (3.4-5.0) mmol/L Chloride 107 (98-107) mmol/L Carbon Dioxide 27 (22-30) mmol/L Anion Gap 9 (4-12) mmol/L BUN 33 H D (9-20) mg/dL Creatinine 0.77 (0.7-1.3) mg/dL Estim Creat Clear Calc 85 ml/min Estimated GFR > 60 (59 - ) Glucose 118 H (65-110) mg/dL Calcium 10.1 (8.4-10.2) mg/dL Phosphorus 5.3 H (2.5-4.5) mg/dL Magnesium 2.1 (1.6-2.3) mg/dL Total Bilirubin 0.8 (0.2-1.3) mg/dL AST 29 (17-59) U/L ALT 23 (6-50) U/L Alkaline Phosphatase 70 (38-126) U/L Troponin I 0.017 0.013 D (0.000-0.034) ng/mL Total Protein 8.0 (6.3-8.2) g/dL Albumin 4.7 (3.5-5.1) g/dL Lipase 342 H (23-300) U/L TSH (Reflex) 0.979 (0.465-4.68) uIU/mL Urine Color (Yellow) Urine Appearance (Clear) Urine pH (5.0-9.0) Ur Specific [place] (1.001-1.035) Urine Protein (Negative) mg/dL Urine Glucose (UA) (Negative) mg/dL Urine Ketones (Negative) mg/dL Ur Blood (Man) (Negative) Urine Nitrate (Negative) Urine Bilirubin (Negative) Urine Urobilinogen (<2.0) mg/dL Leukocyte Esterase Rfl (Negative) ARSH/UL Urine RBC (0-2) /hpf Urine WBC (0-3) /hpf Ur Squamous Epith Cells (Few) /hpf Urine Bacteria /hpf Urine Casts Ethyl Alcohol < 10 (<10) mg/dL Influenza A (RT-PCR) Negative (Negative) Influenza B (RT-PCR) Negative (Negative) RSV (RT-PCR) Negative (Negative) SARS-CoV-2 RNA (RT-PCR) Negative (Negative) Group A Strep (PCR) Not detected (Negative) 12/19/24 Range/Units 02:57 WBC (4.5-10.0) K/mm3 RBC (4.6-6.20) M/mm3 Hgb (14.0-18.0) g/dL Hct (42.0-52.0) % MCV (80-100) fl MCH (26-34) pg MCHC (32-36) g/dl RDW (11.5-14.5) % Plt Count (150-375) k/mm3 MPV (7.4-10.4) fl Immature Gran % (Auto) (0-0.5) % Neut % (Auto) (45.5-73.1) % Lymph % (Auto) (18.3-44.2) % [place] % (Auto) (2.6-8.5) % Eos % (Auto) (0-4.4) % Baso % (Auto) (0.2-1.2) % Lymph # (Auto) (0.9-3.2) K/mm3 [place] # (Auto) (0.1-0.6) K/mm3 Eos # (Auto) (0-0.3) K/mm3 Baso # (Auto) (0.0-0.1) K/mm3 Abs Immat Gran (auto) (0.00-0.031) K/mm3 Absolute Neuts (auto) (1.3-6.7) K/mm3 Absolute Nucleated RBC (0.0-0.012) K/mm3 Nucleated RBC % (0.0-0.2) % PT (11.1-14.7) Seconds INR APTT (22.3-36.8) Seconds D-Dimer (<0.48) ug/mL Sodium (137-145) mmol/L Potassium (3.4-5.0) mmol/L Chloride (98-107) mmol/L Carbon Dioxide (22-30) mmol/L Anion Gap (4-12) mmol/L BUN (9-20) mg/dL Creatinine (0.7-1.3) mg/dL Estim Creat Clear Calc ml/min Estimated GFR (59 - ) Glucose (65-110) mg/dL Calcium (8.4-10.2) mg/dL Phosphorus (2.5-4.5) mg/dL Magnesium (1.6-2.3) mg/dL Total Bilirubin (0.2-1.3) mg/dL AST (17-59) U/L ALT (6-50) U/L Alkaline Phosphatase (38-126) U/L Troponin I (0.000-0.034) ng/mL Total Protein (6.3-8.2) g/dL Albumin (3.5-5.1) g/dL Lipase (23-300) U/L TSH (Reflex) (0.465-4.68) uIU/mL Urine Color Yellow (Yellow) Urine Appearance Clear (Clear) Urine pH 5.5 (5.0-9.0) Ur Specific [place] 1.026 (1.001-1.035) Urine Protein Trace (Negative) mg/dL Urine Glucose (UA) Negative (Negative) mg/dL Urine Ketones Negative (Negative) mg/dL Ur Blood (Man) Negative (Negative) Urine Nitrate Negative (Negative) Urine Bilirubin Negative (Negative) Urine Urobilinogen 1.0 (<2.0) mg/dL Leukocyte Esterase Rfl Negative (Negative) ARSH/UL Urine RBC 0-2 (0-2) /hpf Urine WBC 0-5 (0-3) /hpf Ur Squamous Epith Cells None seen (Few) /hpf Urine Bacteria None seen /hpf Urine Casts 0-2 Ethyl Alcohol (<10) mg/dL Influenza A (RT-PCR) (Negative) Influenza B (RT-PCR) (Negative) RSV (RT-PCR) (Negative) SARS-CoV-2 RNA (RT-PCR) (Negative) Group A Strep (PCR) (Negative) Discharge Plan Discharge Clinical Impression: Dizziness and giddiness Patient Disposition: Home, Self-Care Condition: Stable Instructions: Antibiotic Form, Urinary Retention in Men (ED) Additional Instructions: You were seen in the emergency department for feeling strange/off. We did not find a reason for your symptoms. You did have some issues urinating and if this continues at home you may develop severe abdominal pain. If this happens and you are not able urinate please return to the emergency department immediately for re-evaluation. Please follow-up with your primary care physician for further management. Patient Language: Algerian Prescriptions: No Action naproxen 500 mg tablet 500 mg PO BID PRN (Reason: pain) Qty: 60 2RF diazepam 12.5-15-17.5-20 mg kit 17.5 mg RECTAL ONCE PRN (Reason: seizure activity) Qty: 1 0RF Rx Instructions: administer for seizure lasting 5 minutes or longer cholecalciferol (vitamin D3) 25 mcg (1,000 unit) capsule 25 mcg PO DAILY multivitamin Tablet 1 tablet PO DAILY pantoprazole 40 mg tablet,delayed release (DR/EC) 40 mg PO QAM Qty: 30 11RF lamotrigine 100 mg tablet 300 mg PO DAILY Rx Instructions: take 1 tablet by mouth every morning and two tablets nightly gabapentin 300 mg capsule 600 mg PO QHS 90 Days Qty: 180 1RF Follow-up/Referrals: Alesia Serrato APRN [Primary Care Provider] - 1 Week (ED f/u. Feeling off. Urinary retention)
--- NOTE | 2024-12-18 23:34 | PC.NURSE ---
Patient was asked to provide urine sample. Still unable to.
[2024-12-19] MEDS: SODIUM CHLORIDE 0.9% IV 2,000 ML 999 ML IV CONT (00:12)
--- NOTE | 2024-12-19 00:32 | ECG_ITS ---
Test Date: 2024-12-19 00:35:53 Measurements Intervals [place] Rate: 76 P: 53 NV: 169 QRS: -42 QRSD: 149 T: 28 QT: 392 QTc: 443 Interpretive Statements SINUS RHYTHM WITH SINUS ARRHYTHMIA LEFT AXIS DEVIATION RIGHT BUNDLE BRANCH BLOCK BASELINE ARTIFACT- I, III, AVR, AVL, AVF ABNORMAL ECG Compared to ECG 09/27/2024 20:21:16 NO SIGNIFICANT CHANGE Electronically Signed On 12-19-2024 05:50:29 CASINO GAMING INSPECTOR by Chucky Carmen D.O.
[2024-12-19 00:34] VITALS: BP 149/74; PULSE 81; RESP 20; O2SAT 100
[2024-12-19 00:53] LABS: Troponin I 0.013 ng/mL (0.000-0.034)
--- NOTE | 2024-12-19 01:15 | PC.NURSE ---
Pt asked to provide urine sample. Still unable to.
[2024-12-19 01:39] VITALS: BP 149/78; PULSE 79; RESP 20; O2SAT 97
[2024-12-19 03:08] LABS: Add Urine Microscopic? YES; Appearance Urine Clear (Clear); Bacteria Urine None Seen /hpf; Bilirubin Urine Negative (Negative); Blood Urine Negative (Negative); Color Urine Yellow (Yellow); Glucose Urine UA Negative (Negative); Ketones Urine Negative (Negative); Leukocyte Esterase Ur Negative LEU/UL (Negative); Nitrate Urine Negative (Negative); Non Pathogenic Casts 0-2; Protein Urine Trace mg/dL (Negative); RBC Urine 0-2 /hpf (0-2); Specific Grav Ur 1.026 (1.001-1.035); Squamous Epithelial Cell Urine None Seen /hpf (Few); WBC Urine 0-5 /hpf (0-3); pH Urine 5.5 (5.0-9.0)
== END 2024-12-19 03:46 | disposition home or self-care (01) ==
PROVIDERS: Emergency Provider Emergency Medicine; PCP Nurse Practitioner Family
DX: R42 Dizziness and giddiness (principal); G40.909 Epilepsy, unspecified, not intractable, without status epilepticus; Z85.46 Personal history of malignant neoplasm of prostate; Z87.891 Personal history of nicotine dependence; Z79.899 Other long term (current) drug therapy
CPT/HCPCS: 36415; 70450; 71045; 80053; 81001; 82077; 83690; 83735; 84100; 84443; 84484; 85025; 85380; 85610; 85730; 87637; 87651; 93005; 96360; 96361; 96372; 99284; J3360; J7030

== ENCOUNTER 2025-02-26 00:17 | Day surgery (SDC) | payer MEDICARE, SELFPAY ==
[2025-02-19 12:50] VITALS: BMI 29.0
--- OUTSIDE RECORDS SUMMARY | 2025-02-26 00:21 | XMS_ITS | Clinical Summary ---
Author Organization [facility] Address [address] [place] [id number] Care Team Providers Care Outside Deliverer Name Role Phone Allen Juarez DO Primary Care Provider [phone] Allergies Active Allergy Reactions Criticality Noted Date [...] on file Legal Sex Male 9:51 AM MEDICAL LANGUAGE SPECIALIST Gender Identity Not on file Sexual Orientation Not on file Last Filed Vital Signs Vital Sign Reading Time Taken Comments Blood Pressure 147/80 11/22/2021 10:36 AM MEDICAL LANGUAGE SPECIALIST Pulse 75 11/22/2021 10:36 AM MEDICAL LANGUAGE SPECIALIST Temperature 36.2 C (97.2 F) 11/22/2021 9:21 AM MEDICAL LANGUAGE SPECIALIST Respiratory Rate 18 11/22/2021 9:21 AM MEDICAL LANGUAGE SPECIALIST Oxygen Saturation 98% 11/22/2021 10:36 AM MEDICAL LANGUAGE SPECIALIST Inhaled Oxygen Concentration - - Weight 99.8 kg (220 lb) 11/17/2021 11:59 AM MEDICAL LANGUAGE SPECIALIST Height 185.4 cm (6' 1 ) 11/17/2021 11:59 AM MEDICAL LANGUAGE SPECIALIST Body Mass Index 29.03 11/17/2021 11:59 AM MEDICAL LANGUAGE SPECIALIST Plan of Treatment Health Maintenance Due Date Last Done Comments Colorectal Cancer Screening Colonoscopy (10 Years) 1950 Hepatitis C 1969 Zoster Vaccines (1 of 2) 2001 Annual Medicare Wellness Visit 2016 DTaP, Tdap and Td Vaccines ( 1 - Tdap) 12/31/2016 12/30/2016 Pneumococcal Vaccine: 50+ Years (2 of 2 - PCV) 12/30/2017 12/30/2016 COVID-19 Vaccine (4 - 2023-2 5 season) 2024 08/28/2021, 01/18/2021, 12/17/2020 RSV Immunization or 60+ Years (1 - [...] this topic Medical Devices Implanted Type Area Utility Worker Driver Device Identifier Shelf Expiration Date Model / Serial / Lot Trifocal Intraocular Lens Implanted:Qty: 1 on 11/22/2021 by Jordan Sims MD at [facility] Left: Eye 03/29/2024 TFAT00 / [id number] / Insurance GENERIC - COMMERCIAL Care Teams Outside Deliverer Relationship Specialty [place] [address] [place] [id number] PCP - General INTERNAL MEDICINE 11/22/21
--- OUTSIDE RECORDS SUMMARY | 2025-02-26 00:21 | XMS_ITS | Clinical Summary ---
Author Organization [facility] Address [address] [address] Care Team Providers Care Pbx Operator Name Role Phone Unavailable Primary Care Provider Unavailabl e Source Comments [facility],non-owned Affiliates and Associated Physician Practices is amultiple site organization consisting of ambulatory clinics and hospital sitesin [place], [place], [place] and [place]. This disclosure is being madepursuant to the Care Everywhere program and may not contain all information available regarding this patient. Last updated 18.[facility] [employer] Allergies Active Allergy Reactions Criticality Noted Date Comments Penicillins Unknown 12/08/2020 Medications * Be aware that medications may not be up to date on this document. Alwaysverify current medications with the patient. levETIRAcetam (KEPPRA) 750 MG tablet 2 times daily 05/20/2020 Activ e aspirin EC (ECOTRIN) 81 MG tablet Take [...] at Not on file Legal Sex Male 1:43 PM SERVICES CLERK Gender Identity Not on file Sexual Orientation Not on file Last Filed Vital Signs Vital Sign Reading Time Taken Comments Blood Pressure 140/81 03/16/2021 12:23 PM CDT Pulse 76 03/16/2021 12:23 PM CDT Temperature 36.2 C (97.1 F) 12/08/2020 12:45 PM SERVICES CLERK Respiratory Rate 18 03/16/2021 12:23 PM CDT Oxygen Saturation 98% 03/16/2021 12:23 PM CDT Inhaled Oxygen Concentration - - Weight 103.9 kg (229 lb) 03/16/2021 12:23 PM CDT Height 185.4 cm (6' 1 ) 12/08/2020 12:45 PM SERVICES CLERK Body Mass Index 30.21 12/08/2020 12:45 PM SERVICES CLERK Plan of Treatment Health Maintenance Due Date [...] VACCINE (1 - 2023-2 5 season) 2024 DEPRESSION SCREENING 10/30/2024 INFLUENZA VACCINE (Season Ended) 2025 Respiratory Syncytial Virus (RSV) Vaccine Pt: or [...] to complete this topic MENINGOCOCCAL (Group B) VACC INE SHARED DECISION-MAKING Aged Out No longer eligibl e based on patient's age to complete this topic MENINGOCOCCAL GROUPS A/C/Y/W VACCINE Aged Out No longer eligible b ased [...] one week prior to your last dose Insurance * Guarantor: YANG ROSADO Account Type Relation to Patient Date of Phone Billing Address Personal/Family [address] [place] [phone] [facility] [facility] Address: [address] [phone] SELF PAY NO INSURANCE Member Subscriber Plan / Payer (Ef fective for All Dates) Name:Yang Rosado Member ID:Not on file Relation to Subscriber:Not on file Name:YANG ROSADO Subscriber ID:Not on file (Home) Address: [address] [place] [phone] Payer ID:Not on file Group ID:Not on file Type:Self Pay Address: [place], [place] * Guarantor: YANG ROSADO Account Type Relation to Patient Date of Phone Billing Address Personal/Family [address] [place] [phone] [employer] SELF PA[employer] NO INSURANCE Member Subscriber Plan / Payer (Ef fective for All Dates) Name:Yang Rosado Member ID:Not on file Relation to Subscriber:Not on file Name:YANG ROSADO Subscriber ID:Not on file (Home) Address: [address] Payer ID:Not on file Group ID:Not on file Type:Self Pay Address: [place], [place] * Guarantor: YANG ROSADO Account Type Relation to Patient Date of Phone Billing Address Personal/Family [address] [employer] SELF PA[employer] NO INSURANCE Member Subscriber Plan / Payer (Ef fective for All Dates) Name:Yang Rosado Member ID:Not on file Relation to Subscriber:Not on file Name:YANG ROSADO Subscriber ID:Not on file (Home) Address: [address] [place] [address] Payer ID:Not on file Group ID:Not on file Type:Self Pay Address: [place], [place]
--- OUTSIDE RECORDS SUMMARY | 2025-02-26 00:21 | XMS_ITS | Clinical Summary ---
Author Organization [facility] Address [address] [place] [address] Phone Care Team Providers Care Contract Runner Name Role Phone Alesia Serrato NP Primary Care Provider [phone] Allergies Active Allergy Reactions Criticality Noted Date Comments Penicillins Medications diphenoxylate-atrop ine (LOMOTIL) 2.5-0.025 mg per tablet [address] (PROTONIX) 40 mg EC tablet 4 Active diazePAM (DIASTAT ACUDIAL) rectal kit (20 mg) 4 Active gabapentin (NEURONTIN) 300 mg capsule 4 Active neomycin-polymyxin- dexAMETHasone (MAXITROL) 3.5mg/mL-10,000 unit/mL-0.1 % ophthalmic suspension 5 Active clonazePAM (KlonoPIN) 0.5 mg disintegrating tablet Take 1 tablet (0.5 mg total) by mouth 2 (two) times a day as needed for seizures 10 tablet 5 Active lamoTRIgine (LaMICtal) 100 mg tabletIndications:S eizure (HCC) Take 2 tablets (200 mg total) by mouth every morning AND 3 tablets (300 mg total) nightly. 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 Encounters Date Type Department Care Team Description 02/05/2025 7:03 AM CDT - 02/05/2025 11:59 PM CDT Hospital Encounter [facility] [address] [place] [address] Gerardo Marks III, MD Seizure (FORMERLY [facility]) Discharge Disposition: Discharge to home or self care 01/31/2025 Telephone [facility] Ep[facility]psy [facility] Advanced Medicine 6th [place] [address] [place] [phone] Gerardo Marks III, MD Test Results; Seizures; Med Management 01/29/2025 9:13 AM CDT - 01/29/2025 11:59 PM CDT Hospital Encounter [facility] [address] [place] [address] Trinity Garcia Discharge Disposition: Discharge to home or self care 01/28/2025 8:00 AM CDT - 01/28/2025 11:59 PM CDT Hospital Encounter [facility] [address] [place] [address] Genaro Hernández MT Seizure (FORMERLY [facility]) Discharge Disposition: Discharge to home or self care 01/21/2025 Telephone [facility] Epilepsy [facility] Advanced Medicine [address]th [place] [phone] Gerardo Marks III, MD 12/24/2024 Telephone [facility] Epilepsy [facility] Advanced Medicine 6th [place] [address] [place] [phone] Gerardo Marks III, MD from Last 3 Months Immunizations Immunization Administration Dates Next Due Influenza, Quadrivalent, Split, Intramuscular Pfizer SARS-CoV-2 Monovalent Vaccination (12+ Yrs) TURCIOS-READY TO USE 06/15/2022 Pneumococcal Conjugate PCV 13 08/09/2019 Pneumococcal Polysaccharide PPV23 12/30/2016 TD Preservative Free 12/30/2016 Medical History Medical History Date Comments Seizure (HCC) 07/15/2016 Social History Tobacco Use Types Packs/Day Years Used Date Smoking Tobacco: Former Tobacco Cessation:Counseling Given: No Sex and Gender Information Value Date Recorded Sex Assigned at Not on file Legal 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 Gender Identity Not on file Sexual Orientation Not on file Obstetrics History Last Filed Vital Signs Vital Sign Reading Time Taken Comments Blood Pressure 158/82 11/06/2024 10:39 AM CONCRETE CRAFTSMAN Pulse 80 11/06/2024 10:39 AM CONCRETE CRAFTSMAN Temperature - - Respiratory Rate - - Oxygen Saturation - - Inhaled Oxygen Concentration - - Weight 97.5 kg (215 lb) 02/05/2025 7:20 AM CDT Height 188 cm (6' 2 ) 02/05/2025 7:20 AM CDT Body Mass Index 27.6 02/05/2025 7:20 AM CDT Plan of Treatment Health Maintenance Due Date Last Done Comments Colon Cancer Screening-Colonoscopy 1950 Depression Screening 1950 Fall Risk Assessment 1950 Hepatitis C Screening 1950 Hepatitis B Screening 1969 Zoster Vaccine (1 of 2) 2001 Abdominal Aortic Aneurysm (A AA) Screen 2016 Well Visit 65+ 2016 DTaP/Tdap/Td Vaccine (1 - Tdap) 12/31/2016 7 Covid-19 Vaccine (5 - 2023-2 5 season) 2024 06/15/2022, 08/28/2021, 01/18/2021, Additional history exists Influenza Vaccine (Season Ended) 2025 08/06/20 19 Pneumococcal vaccine 65+ Completed 08/09/2019, 12/2016 Procedures Procedure Name Priority Date/Time Associated Diagnosis Comments MRI BRAIN EPILEPSY WO CONTRAST Schedule Routine, Read Routine (OP Routine) 02/05/2025 8:51 AM CDT Seizure (HCC) AMBULATORY EEG Routine 01/29/2025 5:54 PM CDT Seizure (HCC) from Last 3 Months Results * MRI Brain Epilepsy WO Contrast (02/05/2025 8:51 AM CDT) Anatomical Region Laterality Modality Head and Neck N/A Magnetic Resonan ce 02/05/2025 10:3 0 AM CDT Impressions 02/05/2025 10:46 AM CDT No specific MR findings to explain the patient's seizures. Subtle asymmetry of the right cornu ammonis 1. Recommend attention on follow-up imaging. Dictated by: Jamie Mckeon MD The radiology attending physician has personally reviewed this study, and had reviewed and/or edited this written report and agrees with it. Electronically signed by: Surya Pozo MD Narrative 02/05/2025 10:46 AM CDT EXAMINATION: Magnetic resonance imaging (MRI) of the brain and brainstem without contrast HISTORY: Seizures localized to the right frontal-temporal lobe TECHNIQUE: Multiplanar multi-weighted MRI of the brain and brainstem was performed without intravenous contrast using the seizure protocol. This included high resolution 3D T1-weighted and T2-FLAIR imaging and detailed T2-weighted imaging of the hippocampi and temporal lobes. COMPARISON: None Available. FINDINGS: There is no evidence of heterotopia, vascular malformation, tumor, or infarct. Subtle asymmetry of the right cornu ammonis 1. Otherwise, the hippocampi are symmetric in size and signal. The scalp and calvarium are normal. The superior sagittal sinus demonstrates normal venous flow. The corpus callosum is normal in shape and signal intensity. The posterior fossa is unremarkable. The pituitary and sella are normal. The brainstem and craniocervical junction are unremarkable. Diffusion weighted images reveal no hyperintensities to suggest acute cerebral infarction. The susceptibility weighted sequences reveal no evidence of acute or chronic hemorrhage. The ventricles are normal in size and position without evidence of hydrocephalus. Moderate scattered periventricular and subcortical T2/FLAIR hyperintensities, which are nonspecific but can be seen in setting of small vessel ischemic disease. The paranasal sinuses are normal. The visualized portions of the mastoids are unremarkable. The orbits appear normal. Normal flow voids are demonstrated in the carotid arteries and basilar artery. Incidental right parahippocampal cyst. Procedure Note Surya Pozo MD PhD - 02/05/2025 EXAMINATION: Magnetic resonance imaging (MRI) of the brain and brainstem without contrast HISTORY: Seizures localized to the right frontal-temporal lobe TECHNIQUE: Multiplanar multi-weighted MRI of the brain and brainstem was performed without intravenous contrast using the seizure protocol. This included high resolution 3D T1-weighted and T2-FLAIR imaging and detailed T2-weighted imaging of the hippocampi and temporal lobes. COMPARISON: None Available. FINDINGS: There is no evidence of heterotopia, vascular malformation, tumor, or infarct. Subtle asymmetry of the right cornu ammonis 1. Otherwise, the hippocampi are symmetric in size and signal. The scalp and calvarium are normal. The superior sagittal sinus demonstrates normal venous flow. The corpus callosum is normal in shape and signal intensity. The posterior fossa is unremarkable. The pituitary and sella are normal. The brainstem and craniocervical junction are unremarkable. Diffusion weighted images reveal no hyperintensities to suggest acute cerebral infarction. The susceptibility weighted sequences reveal no evidence of acute or chronic hemorrhage. The ventricles are normal in size and position without evidence of hydrocephalus. Moderate scattered periventricular and subcortical T2/FLAIR hyperintensities, which are nonspecific but can be seen in setting of small vessel ischemic disease. The paranasal sinuses are normal. The visualized portions of the mastoids are unremarkable. The orbits appear normal. Normal flow voids are demonstrated in the carotid arteries and basilar artery. Incidental right parahippocampal cyst. IMPRESSION: No specific MR findings to explain the patient's seizures. Subtle asymmetry of the right cornu ammonis 1. Recommend attention on follow-up imaging. Dictated by: Jamie Mckeon MD The radiology attending physician has personally reviewed this study, and had reviewed and/or edited this written report and agrees with it. Electronically signed by: Surya Pozo MD Gerardo Marks III, MD IM MRI PROCEDURES Final Result * Ambulatory EEG -[facility] (01/29/2025 5:54 PM CDT) Anatomical Region Laterality Modality EEG Narrative 01/29/2025 5:54 PM CDT Ambulatory EEG Report Patient Name: Yang Rosado [facility] Medical Record Number (MRN): [id number] [facility] Record: [id number] Date of (): 1950 EEG Date: 01/28/2025 Ordering Provider: Gerardo Marks III, MD CC: Alesia Serrato Start Time: 01/28/2025 9:12:24 AM End Time: 01/29/2025 9:43:00 AM Introduction: Mr. Rosado is a 74 y.o. male with a history of seizures, presenting with two episodes of convulsion associated with a fall and laceration to the head. The EEG was performed to evaluate for seizures. This is a 24 channel EEG recording acquired on a AppShare digital ambulatory EEG acquisition system. Scalp electrodes were placed with collodion according to the international 10-20 System. The analog EEG was filtered from 1-70 Hz and digitally sampled at 200 Hz. The record was then reformatted for review in bipolar and referential montages. A patient diary and push-button event system was utilized to record patient events as needed. EEG Description: The awake background included a 9 Hz posterior rhythm which attenuated with eye opening and activity. There was occasional lower frequency, sharply contoured theta to delta range activity over the right frontal-temporal region (F8>Fp2>F4/T4). There was rare lower frequency sharply contoured theta range activity over the left temporal region (F7/T3). During drowsiness, identified by ocular signs and alpha attenuation, there was intermittent, diffuse, asynchronous theta activity admixed with 2-4 Hz polymorphic frontotemporal delta activity. As the record progressed, stage II sleep was identified by vertex waves, sleep spindles and K-complexes. Hyperventilation and photic strobe stimulation were not performed. There were rare to occasional epileptiform discharges over the right frontal-temporal region (F8>Fp2>F4/T4). Interpretation: This is an abnormal ambulatory EEG due to 1) right frontal-temporal epileptiform discharges, 2) right frontal-temporal sharply contoured slowing and 3) rare left temporal sharply contoured slowing. Focal epileptiform discharges are typically seen in patients with a history of focal seizures. Focal slowing indicates focal cerebral dysfunction. A structural or physiological abnormality should be considered. No events were reported by the patient. By signing this report, the attending Electroencephalographer certifies that he/she personally reviewed the electrodiagnostics study and has edited this report to fully conform with his/her intent. Signing Attending: Slava Wilson MD PhD Gerardo Marks III, MD NEUROLOGY ORDERABLES Fin al Result from Last 3 Months Insurance [employer] MEDICARE HMO HU[employer]NA MEDICARE HMO Care Teams Contract Runner Relationship Specialty Start Date End Date Alesia Serrato NP [address] [place] [address] PCP - General Family Medicine 12/24/24
--- OUTSIDE RECORDS SUMMARY | 2025-02-26 00:21 | XMS_ITS | Referral Summary ---
Author Organization [facility] Address [address] [facility] [address] [place] [address] Phone Care Team Providers Care Follow Up Clerk Name Role Phone Alesia Serrato NP Primary Care Provider [phone] Encounters Date Type Department Care Team Description 02/05/2025 7:03 AM CDT - 02/05/2025 11:59 PM CDT Hospital Encounter [facility] ([facility]) [address] [place] [address] Gerardo Marks III, MD Seizure (HCC) Discharge Disposition: Discharge to home or self care 01/31/2025 Telephone [facility] Ep[facility] [address] [place] [address] Advanced Medicine 6th [place] [address] [place] [phone] Gerardo Marks III, MD Test Results; Seizures; Med Management 01/29/2025 9:13 AM CDT - 01/29/2025 11:59 PM CDT Hospital Encounter [facility] [address] [place] [phone] Trinity Garcia Discharge Disposition: Discharge to home or self care 01/28/2025 8:00 AM CDT - 01/28/2025 11:59 PM CDT Hospital Encounter [facility] [address] [place] [phone] Genaro Hernández MT Seizure (HCC) Discharge Disposition: Discharge to home or self care 01/21/2025 Telephone [facility] Epilepsy [address] [facility] Advanced Medicine 6th [place] [address] [place] [address] Gerardo Marks III, MD 12/24/2024 Telephone [facility] Ep[facility] [address] [facility] 6th [place] [address] [place] [address] Gerardo Marks III, MD from Last 3 Months Allergies Active Allergy Reactions Criticality Noted Date [...] ears 0 01/16/2013 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 Immunizations Immunization Administration Dates Next Due Influenza, Quadrivalent, Split, Intramuscular [employer] SARS-CoV-2 Monovalent Vaccination (12+ Yrs) TURCIOS-READY TO USE 06/15/2022 Pneumococcal Conjugate PCV 13 08/09/2019 Pneumococcal Polysaccharide PPV23 12/30/2016 TD Preservative Free 12/30/2016 Social History Tobacco Use Types Packs/Day Years Used Date Smoking Tobacco: Former Tobacco Cessation:Counseling Given: No Sex and Gender Information Value Date Recorded Sex Assigned at Not on file 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 Electronically signed by: Surya Pozo MD us Gerardo Marks III, MD IMG MRI PROCEDURES Final Result * Ambulatory EEG -[facility] (01/29/2025 5:54 PM CDT) Anatomical Region Laterality Modality EEG Narrative 01/29/2025 5:54 PM CDT Ambulatory EEG Report Patient Name: Yang Rosado [facility] Medical Record Number (MRN): [id number] [facility] Record: [id number] Date of (): 1950 EEG Date: 01/28/2025 [...] 24 channel EEG recording acquired on a SimpliVT digital ambulatory EEG acquisition system. Scalp electrodes [...] Insurance HUMANA MEDICARE HMO HU[employer]NA MEDICARE HMO Member Subscriber Plan / Payer (Ef fective 2020-Present) Name:Yang Rosado Relation to Subscriber:Self Name:Yang Rosado Payer ID:[id number] (NAIC) Type:MEDICARE RISK OTHER Address: [place] [id number] Care Teams Follow Up Clerk Relationship Specialty Start Date End Date Alesia Serrato NP [address] [place], [place] [phone] PCP - General Family Medicine 12/24/24
[2025-02-26 06:49] VITALS: BP 148/77; PULSE 79; RESP 18; TEMP 36.6; O2SAT 98
[2025-02-26] MEDS: LACTATED RINGERS 1,000 ML 150 ML IV CONT (06:59)
--- NOTE | 2025-02-26 07:28 | WPDANESEPPF ---
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 Patient Data Age: 74 Gender: M Height: 1.85 m Weight: 101.9 kg Last Vital Signs Temp 97.8 F 02/26/25 06:49 Pulse 79 02/26/25 06:49 Resp 18 02/26/25 06:49 BP 148/77 H 02/26/25 06:49 Pulse Ox 98 02/26/25 06:49 O2 Del Method Room Air 02/26/25 06:49 Allergies Allergy/AdvReac Type Severity Reaction Status Date / Time Penicillins Allergy Severe Anaphylactic Verified 02/26/25 06:46 Shock Home Medications ?Medication ?Instructions ?Recorded ?Confirmed ?Type cholecalciferol (vitamin D3) 25 25 mcg PO DAILY 03/07/24 02/26/25 History mcg (1,000 unit) capsule multivitamin 1 tablet PO DAILY 03/07/24 02/26/25 History pantoprazole 40 mg tablet,delayed 40 mg PO QAM #30 tabs 08/22/24 02/26/25 Rx release diazepam 12.5 mg-15 mg-17.5 mg-20 17.5 mg RECTAL ONCE PRN seizure 12/19/24 02/20/25 Rx mg rectal kit activity #1 ea lamotrigine 100 mg tablet 300 mg PO .COMPLEX 01/29/25 02/26/25 History cyclobenzaprine 5 mg tablet 5 mg PO TID PRN muscle spasm #30 02/20/25 02/26/25 Rx tabs diclofenac sodium 1 % topical gel 4 g topical QID 02/20/25 02/26/25 History erythromycin 5 mg/gram (0.5 %) eye 1 applic LEFT EYE Q4H stye #3.5 02/20/25 02/26/25 Rx ointment grams gabapentin 300 mg capsule 1,200 mg PO QHS restless leg 02/20/25 02/26/25 History meloxicam 7.5 mg tablet See Rx Instructions PO DAILY #60 02/20/25 02/26/25 Rx tabs Patient hx anesthesia problems: none Family hx anesthesia problems: none Results Review: All pre-operative results and documents have been reviewed as part of the pre-operative evaluation. [facility] Past Medical History Medical History Radiation proctitis Hemorrhoid Sacral fracture Impacted cerumen of both ears Hx of malignant neoplasm of prostate Seizure disorder Encounter for general adult medical examination without abnormal findings Screening for malignant neoplasm of prostate Screening for malignant neoplasm of colon Obesity (BMI 30.0-34.9) Immunization due Elevated liver enzymes Prostate cancer Elevated PSA Abnormal liver function test Seizure disorder (~2015) Family History Family History Mother Diabetes mellitus Sibling Family history of cardiovascular disease Father Family history of kidney disease Social History Social History Social History: Caffeine-coffee daily Smoking packs per day: 1 Smoking cigarettes per day: 20.0 Years smoked: 10 Smoking pack-years: 10.00 Smoking status: Former smoker Tobacco type: cigarettes Second hand tobacco smoke exposure: No Smoking end date: 10/30/76 Alcohol intake: current Drinks per week: 3 Alcohol use details: rare Substance use: former Substance use type: does not use Other substance usage details: GUMMIES OCCASIONALLY Last use: 01/02/24 Do You Feel Safe in your Home?: Yes Lack of Transportation: No Lack of Food: Never True Current Housing: I Have Housing Concerned About Future Housing: No Difficulty Paying Gas/Electric Bills: No Difficulty Paying for Meds: No Currently Unemployed: No Education: Don't Know Difficulty w/ Childcare or Family Care: No Living arrangements: with family Occupation/Education: retired Additional occupation/education comments: [employer] work Gender identity (if verbalized by the patient): Male Spiritual care concerns: No Agree to blood products: Yes Anes - Eval Final PreProcedure Day of Procedure 02/26/25 07:28 Patient weight: normal Heart: regular rate and rhythm Lungs: clear to auscultation Airway: Mallampati scale class II Neurological: alert and oriented Last oral intake: >/= 8 hours ASA classification: III Emergent: no Anesthetic plan: proceed Anesthesia type and monitoring: general GIVS and standard monitoring Results Review: All pre-operative results and documents have been reviewed as part of the pre-operative evaluation. Informed Consent: The patient's anesthetic plan and its attendant risks and benefits were discussed with the patient/family/POA. Questions were solicited and answers provided to the satisfaction of the patient/family/POA.
--- NOTE | 2025-02-26 07:38 | PM.HPGS ---
History of Present Illness History of Present Illness Consent: Risks, benefits, and alternatives have been discussed and questions answered. Patient agrees to proceed with procedure. 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 Narrative: Yang Rosado is a 74 year old male with garrido's, no dysplasia, here for another egd, on ppi Review of Systems Review of Systems: All systems reviewed & are unremarkable except as noted in HPI and below PMFSH Past Medical History Medical History Radiation proctitis Hemorrhoid Sacral fracture Impacted cerumen of both ears Hx of malignant neoplasm of prostate Seizure disorder Encounter for general adult medical examination without abnormal findings Screening for malignant neoplasm of prostate Screening for malignant neoplasm of colon Obesity (BMI 30.0-34.9) Immunization due Elevated liver enzymes Prostate cancer Elevated PSA Abnormal liver function test Seizure disorder (~2015) Family History Family History Mother Diabetes mellitus Sibling Family history of cardiovascular disease Father Family history of kidney disease Social History Social History Social History: Caffeine-coffee daily Smoking packs per day: 1 Smoking cigarettes per day: 20.0 Years smoked: 10 Smoking pack-years: 10.00 Smoking status: Former smoker Tobacco type: cigarettes Second hand tobacco smoke exposure: No Smoking end date: 10/30/76 Alcohol intake: current Drinks per week: 3 Alcohol use details: rare Substance use: former Substance use type: does not use Other substance usage details: GUMMIES OCCASIONALLY Last use: 01/02/24 Do You Feel Safe in your Home?: Yes Lack of Transportation: No Lack of Food: Never True Current Housing: I Have Housing Concerned About Future Housing: No Difficulty Paying Gas/Electric Bills: No Difficulty Paying for Meds: No Currently Unemployed: No Education: Don't Know Difficulty w/ Childcare or Family Care: No Living arrangements: with family Occupation/Education: retired Additional occupation/education comments: [employer] work Gender identity (if verbalized by the patient): Male Spiritual care concerns: No Agree to blood products: Yes Meds Home Medications and Allergies Home Medications ?Medication ?Instructions ?Recorded ?Confirmed ?Type cholecalciferol (vitamin D3) 25 25 mcg PO DAILY 03/07/24 02/26/25 History mcg (1,000 unit) capsule multivitamin 1 tablet PO DAILY 03/07/24 02/26/25 History pantoprazole 40 mg tablet,delayed 40 mg PO QAM #30 tabs 08/22/24 02/26/25 Rx release diazepam 12.5 mg-15 mg-17.5 mg-20 17.5 mg RECTAL ONCE PRN seizure 12/19/24 02/20/25 Rx mg rectal kit activity #1 ea lamotrigine 100 mg tablet 300 mg PO .COMPLEX 01/29/25 02/26/25 History cyclobenzaprine 5 mg tablet 5 mg PO TID PRN muscle spasm #30 02/20/25 02/26/25 Rx tabs diclofenac sodium 1 % topical gel 4 g topical QID 02/20/25 02/26/25 History erythromycin 5 mg/gram (0.5 %) eye 1 applic LEFT EYE Q4H stye #3.5 02/20/25 02/26/25 Rx ointment grams gabapentin 300 mg capsule 1,200 mg PO QHS restless leg 02/20/25 02/26/25 History meloxicam 7.5 mg tablet See Rx Instructions PO DAILY #60 02/20/25 02/26/25 Rx tabs Allergies Allergy/AdvReac Type Severity Reaction Status Date / Time Penicillins Allergy Severe Anaphylactic Verified 02/26/25 06:46 Shock Vital Signs Vital Signs - 24 hr 02/26/25 06:49 Temperature 97.8 F Pulse Rate 79 Respiratory Rate 18 Blood Pressure 148/77 H Pulse Oximetry 98 Oxygen Delivery Room Air Exam Const: General: comfortable and no acute distress HENMT: Face/Nose/Sinus: Normal nares present Eyes: General: appearance normal, both eyes and all related structures Neck: Neck: no JVD Resp: Auscultation: clear to auscultation bilaterally Cardio: Rate: regular rate Rhythm: regular rhythm GI: Inspection: non-distended GI Palp: Yes Soft to palpation Skin: General skin exam: normal color Neuro: Speech: normal speech Extrem: General: normal to inspection Psych: Mental Status: mental status grossly normal Assessment and Plan Assessment and plan (1) Garrido esophagus: Qualifiers: Garrido's esophagus type: without dysplasia Qualified Code(s): K22.70 - 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
[2025-02-26 07:46] VITALS: BP 123/71; PULSE 83; RESP 16; O2SAT 95
[2025-02-26 07:56] VITALS: BP 132/68; PULSE 82; RESP 15; O2SAT 92
[2025-02-26 08:06] VITALS: BP 125/74; PULSE 80; RESP 15; O2SAT 96
== END 2025-02-26 08:15 | disposition home or self-care (01) ==
PROVIDERS: PCP Nurse Practitioner Family; Referring Provider Nurse Practitioner Family; Visit Provider Internal Medicine Gastroenterology
PROC: 0DJ08ZZ Inspection of Upper Intestinal Tract, Via Natural or Artificial Opening Endoscopic (ICD-10-PCS; CPT 43239; principal; 2025-02-26 07:45)
DX: K22.70 Barrett's esophagus without dysplasia (principal); K44.9 Diaphragmatic hernia without obstruction or gangrene; Z87.891 Personal history of nicotine dependence
CPT/HCPCS: 43239; 88305; J2704; J7120

== ENCOUNTER 2025-03-20 10:55 | Outpatient (CLI) | payer MEDICARE, SELFPAY ==
--- NOTE | ~2025-03-20 | XR_ITS ---
Right Knee Technique: AP, lateral, and sunrise views were obtained. Clinical History: Pain Findings: No fracture or dislocation is seen. Probable mild lateral compartment narrowing.. Moderate joint effusion is seen. Impression: Probable mild lateral compartment narrowing. Moderate joint effusion, nonspecific. Reviewed, dictated and finalized at [facility]. Impression: Probable mild lateral compartment narrowing. Moderate joint effusion, nonspecific.
--- OUTSIDE RECORDS SUMMARY | 2025-03-20 11:00 | XMS_ITS | Clinical Summary ---
Author Organization [facility] Address [address] [place] [address] Care Team Providers Care Hob Grinder Name Role Phone Unavailable Primary Care Provider Unavailabl e Source Comments [facility],non-owned Affiliates and Associated Physician Practices is amultiple site organization consisting of ambulatory clinics and hospital sitesin [place], [place], [place] and [place]. This disclosure is being madepursuant to the Care Everywhere program and may not contain all information available regarding this patient. Last updated 18.[facility] Figure 8 Surgical Allergies Active Allergy Reactions Criticality Noted Date [...] on file Legal Sex Male 1:43 PM PRISON PSYCHIATRIST Gender Identity Not on file Sexual Orientation Not on file Last Filed Vital Signs Vital Sign Reading Time Taken Comments Blood Pressure 140/81 03/16/2021 12:23 PM CDT Pulse 76 03/16/2021 12:23 PM CDT Temperature 36.2 C (97.1 F) 12/08/2020 12:45 PM PRISON PSYCHIATRIST Respiratory Rate 18 03/16/2021 12:23 PM CDT Oxygen Saturation 98% 03/16/2021 12:23 PM CDT Inhaled Oxygen Concentration - - Weight 103.9 kg (229 lb) 03/16/2021 12:23 PM CDT Height 185.4 cm (6' 1 ) 12/08/2020 12:45 PM PRISON PSYCHIATRIST Body Mass Index 30.21 12/08/2020 12:45 PM PRISON PSYCHIATRIST Plan of Treatment Health Maintenance Due Date [...] week prior to your last dose Insurance [employer] SELF PAY NO INSURANCE Member Subscriber Plan / Payer (Ef fective for All Dates) Name:Yang Rosado Member ID:Not on file Relation to Subscriber:Not on file Name:YANG ROSADO Subscriber ID:Not on file (Home) Address: [address] [place] [phone] Payer ID:Not on file Group ID:Not on file Type:Self Pay Address: [place], [place] * Guarantor: YANG ROSADO Account Type Relation to Patient Date of Phone Billing Address Personal/Family [address] [place] [phone] HUMA[employer] SELF PAY NO INSURANCE Member Subscriber Plan / Payer (Ef fective for All Dates) Name:Yang Rosado Member ID:Not on file Relation to Subscriber:Not on file Name:YANG ROSADO Subscriber ID:Not on file (Home) Address: [address] [place], [place] [id number] Payer ID:Not on file Group ID:Not on file Type:Self Pay Address: [place], [place] * Guarantor: YANG ROSADO Account Type Relation to Patient Date of Phone Billing Address Personal/Family [address] [place], [place] [phone] HU[employer]NA SELF PAY NO INSURANCE Member Subscriber Plan / Payer (Ef fective for All Dates) Name:Yang Rosado Member ID:Not on file Relation to Subscriber:Not on file Name:YANG ROSADO Subscriber ID:Not on file (Home) Address: [address] [place] [address] Payer ID:Not on file Group ID:Not on file Type:Self Pay Address: [place], [place] * Guarantor: YANG ROSADO Account Type Relation to Patient Date of Phone Billing Address Personal/Family [address] [place], [place] [phone] HU[employer]NA SELF PAY NO INSURANCE Member Subscriber Plan / Payer (Ef fective for All Dates) Name:Yang Rosado Member ID:Not on file Relation to Subscriber:Not on file Name:YANG ROSADO Subscriber ID:Not on file (Home) Address: [address] [place] [phone] Payer ID:Not on file Group ID:Not on file Type:Self Pay Address: [place]
--- OUTSIDE RECORDS SUMMARY | 2025-03-20 11:00 | XMS_ITS | Clinical Summary ---
Author Organization [facility] Address [address] [place] [address] Phone Care Team Providers Care Farm Helper Name Role Phone Alesia Serrato NP Primary Care Provider [phone] Allergies Active Allergy Reactions Criticality Noted Date [...] - 02/05/2025 11:59 PM CDT Hospital Encounter [facility] ([facility]) [address] [place] [address] Gerardo Marks III, MD Seizure ([facility]) Discharge Disposition: Discharge to home or self care 01/31/[address] [facility] Epilepsy [facility] Advanced Medicine 6th [place] [address] [place] [phone] Gerardo Marks III, MD Test Results; Seizures; Med Management 01/29/2025 9:13 AM CDT - 01/29/2025 11:59 PM CDT Hospital Encounter [facility] [address] [place] [address] Trinity Garcia Discharge Disposition: Discharge to home or self care 01/28/2025 8:00 AM CDT - 01/28/2025 11:59 PM CDT Hospital Encounter [facility] [address] [place] [address] Genaro Hernández MT Seizure ([facility]) Discharge Disposition: Discharge to home or self care 01/21/[address] [facility] Epilepsy [facility] Advanced Medicine 6th [place] [phone] Gerardo Marks III, MD 12/24/[address] 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 PLUMBING INSPECTOR Gender Identity Not on file Sexual Orientation Not on file Obstetrics History Last Filed Vital Signs Vital Sign Reading Time Taken Comments Blood Pressure 158/82 11/06/2024 10:39 AM PLUMBING INSPECTOR Pulse 80 11/06/2024 10:39 AM PLUMBING INSPECTOR Temperature - - Respiratory Rate - - [...] MRI PROCEDURES Final Result * Ambulatory EEG -[facility] (01/29/2025 5:54 PM CDT) Anatomical Region Laterality Modality EEG Narrative 01/29/2025 5:54 PM CDT Ambulatory EEG Report Patient Name: Yang Rosado [facility] Medical Record Number (MRN): [id number] [facility] Record: [id number] Date of (): 1950 EEG Date: 01/28/2025 [...] 24 channel EEG recording acquired on a [employer]eatyou digital ambulatory EEG acquisition system. Scalp electrodes [...] MEDICARE HMO HUMANA MEDICARE HMO Care Teams Farm Helper Relationship Specialty Start Date End Date Alesia Serrato NP [address] [place] [address] PCP - General Family Medicine 12/24/24
--- OUTSIDE RECORDS SUMMARY | 2025-03-20 11:00 | XMS_ITS | Referral Summary ---
Author Organization [facility] Address [address] [facility] [address] [place] [address] Phone Care Team Providers Care Trade Recruiter Name Role Phone Alesia Serrato NP Primary Care Provider [phone] Encounters Date Type Department Care Team Description 02/05/2025 7:03 AM CDT - 02/05/2025 11:59 PM CDT Hospital Encounter [facility] ([facility]) [address] [place] [address] Gerardo Marks III, MD Seizure (HCC) Discharge Disposition: Discharge to home or self care 01/31/2025 Telephone [facility] Epilepsy [address] [place] [address] Advanced Medicine 6th [place] [address] [place] [phone] Gerardo Marks III, MD Test Results; Seizures; Med Management 01/29/2025 9:13 AM CDT - 01/29/2025 11:59 PM CDT Hospital Encounter [facility] [address] [place] [phone] Trinity Garcia Discharge Disposition: Discharge to home or self care 01/28/2025 8:00 AM CDT - 01/28/2025 11:59 PM CDT Hospital Encounter [facility] [address] [place] [phone] Genaro Hernández MT Seizure (HCC) Discharge Disposition: Discharge to home or self care 01/21/2025 Telephone [facility] Epilepsy [address] [facility] Advanced Medicine 6th [place] [address] [place] [address] Gerardo Marks III, MD 12/24/2024 Telephone [facility] Epilepsy [address] [facility] 6th [place] [address] [place] [address] Gerardo Marks III, MD from [...] Dates Next Due Influenza, Quadrivalent, Split, Intramuscular [employer] SARS-CoV-2 Monovalent Vaccination (12+ Yrs) TURCIOS-READY TO USE 06/15/2022 Pneumococcal Conjugate PCV 13 08/09/2019 Pneumococcal Polysaccharide PPV23 12/30/2016 TD Preservative Free 12/30/2016 Social History Tobacco Use Types Packs/Day Years Used Date Smoking Tobacco: Former Tobacco Cessation:Counseling Given: No Sex and Gender Information Value Date Recorded Sex Assigned at Not on file Legal 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 CARPET INSTALLER Gender Identity Not on file Sexual Orientation Not on file Last Filed Vital Signs Vital Sign Reading Time Taken Comments Blood Pressure 158/82 11/06/2024 10:39 AM CARPET INSTALLER Pulse 80 11/06/2024 10:39 AM CARPET INSTALLER Temperature - - Respiratory Rate - - [...] MRI PROCEDURES Final Result * Ambulatory EEG -[facility] (01/29/2025 5:54 PM CDT) Anatomical Region Laterality Modality EEG Narrative 01/29/2025 5:54 PM CDT Ambulatory EEG Report Patient Name: Yang Rosado [facility] Medical Record Number (MRN): [id number] [facility] Record: [id number] Date of (): 1950 EEG Date: 01/28/2025 [...] 24 channel EEG recording acquired on a [employer] digital ambulatory EEG acquisition system. Scalp electrodes [...] Payer ID:[id number] (NAIC) Type:MEDICARE RISK OTHER Address: [place] [id number] Care Teams Trade Recruiter Relationship Specialty Start Date End Date Alesia Serrato NP [address] [place], [place] [id number] PCP - General Family Medicine 12/24/24
== END 2025-03-20 10:56 | disposition home or self-care (01) ==
PROVIDERS: PCP Nurse Practitioner Family; Visit Provider Nurse Practitioner Family
DX: M25.461 Effusion, right knee (principal)
CPT/HCPCS: 73564

== ENCOUNTER 2025-05-05 13:20 | Outpatient (CLI) | payer MEDICARE, SELFPAY ==
--- OUTSIDE RECORDS SUMMARY | 2025-05-05 13:23 | XMS_ITS | Referral Summary ---
Author Organization [facility] Address [address] [facility] [address] [place] [address] Phone Care Team Providers Care Drapery Rod Assembler Name Role Phone Alesia Serrato NP Primary Care Provider Encounters Date Type Department Care Team Description 02/05/2025 7:03 AM CDT - 02/05/2025 11:59 PM CDT Hospital Encounter [facility] ([facility]) [address] [place] [address] Gerardo Marks III, MD Seizure ([facility]) Discharge Disposition: Discharge to home or self care from Last 3 Months Allergies Active Allergy [...] tablet 5 Active lamoTRIgine (LaMICtal) 100 mg tabletIndications:Wayne sarabia (HCC) Take 2 tablets (200 mg total) [...] Dates Next Due Influenza, Quadrivalent, Split, Intramuscular [employer] SARS-CoV-2 Monovalent Vaccination (12+ Yrs) TURCIOS-READY TO USE 06/15/2022 Pneumococcal Conjugate PCV 13 08/09/2019 Pneumococcal Polysaccharide PPV23 12/30/2016 TD Preservative Free 12/30/2016 Social History Tobacco Use Types Packs/Day Years Used Date Smoking Tobacco: Former Tobacco Cessation:Counseling Given: No Sex and Gender Information Value Date Recorded Sex Assigned at Not on file Legal 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 TRADE CLERK Gender Identity Not on file Sexual Orientation Not on file Last Filed Vital Signs Vital Sign Reading Time Taken Comments Blood Pressure 158/82 11/06/2024 10:39 AM TRADE CLERK Pulse 80 11/06/2024 10:39 AM TRADE CLERK Temperature - - Respiratory Rate - - Oxygen Saturation - - Inhaled Oxygen Concentration - - Weight 97.5 kg (215 lb) 02/05/2025 7:20 AM CDT Height 188 cm (6' 2) 02/05/2025 7:20 AM CDT Body Mass Index 27.6 02/05/2025 7:20 AM CDT Plan of Treatment Not on file Procedures Procedure Name Priority Date/Time Associated Diagnosis Comments MRI BRAIN EPILEPSY WO CONTRAST Schedule Routine, Read Routine (OP Routine) 02/05/2025 8:51 AM CDT Seizure (HCC) from Last 3 Months [...] Surya Pozo MD Gerardo Marks III, MD IMG MRI PROCEDURES Final Result from Last 3 Months Insurance HU[employer]NA MEDICARE HMO HUMANA MEDICARE HMO Care Teams Drapery Rod Assembler Relationship Specialty Start Date End Date Alesia Serrato NP [address] [place] [address] PCP - General Family Medicine 12/24/24
--- OUTSIDE RECORDS SUMMARY | 2025-05-05 13:23 | XMS_ITS | Clinical Summary ---
Author Organization [facility] Address [address] [place] [address] Phone Care Team Providers Care Latrine Cleaner Name Role Phone Alesia Serrato NP Primary Care Provider [phone] Allergies Active Allergy Reactions Criticality Noted Date [...] - 02/05/2025 11:59 PM CDT Hospital Encounter [facility]) [address] [place], [place] [phone] Gerardo Marks III, MD Seizure (HCC) Discharge Disposition: Discharge to home or self care from Last 3 Months Immunizations Immunization Administration [...] on file Legal 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 NEUROSCIENCE DIRECTOR NA Gender Identity Not on file Sexual Orientation Not on file Obstetrics History Last Filed Vital Signs Vital Sign Reading Time Taken Comments Blood Pressure 158/82 11/06/2024 10:39 AM NEUROSCIENCE DIRECTOR NA Pulse 80 11/06/2024 10:39 AM NEUROSCIENCE DIRECTOR NA Temperature - - Respiratory Rate - - [...] (1 - Tdap) 12/31/2016 7 Covid-19 Vaccine (2023-2 5 season) 2024 06/15/2022, 08/28/2021, 01/18/2021, Additional history exists Influenza Vaccine (#1) 2025 08/06/2019 Pneumococcal vaccine 65+ Completed 08/09/2019, 12/2016 Procedures [...] MEDICARE HMO HUMANA MEDICARE HMO Care Teams Latrine Cleaner Relationship Specialty Start Date End Date Alesia Serrato NP [address] [place] [address] PCP - General Family Medicine 12/24/24
--- OUTSIDE RECORDS SUMMARY | 2025-05-05 13:24 | XMS_ITS | Clinical Summary ---
Author Organization [facility] Address [address] [place] [address] Care Team Providers Care Frame Operator Name Role Phone Allen Juarez DO Primary Care Provider [phone] Allergies Active Allergy Reactions Criticality Noted Date [...] on file Legal Sex Male 9:51 AM PERFECT BIND MACHINE OPERATOR Gender Identity Not on file Sexual Orientation Not on file Last Filed Vital Signs Vital Sign Reading Time Taken Comments Blood Pressure 147/80 11/22/2021 10:36 AM PERFECT BIND MACHINE OPERATOR Pulse 75 11/22/2021 10:36 AM PERFECT BIND MACHINE OPERATOR Temperature 36.2 C (97.2 F) 11/22/2021 9:21 AM PERFECT BIND MACHINE OPERATOR Respiratory Rate 18 11/22/2021 9:21 AM PERFECT BIND MACHINE OPERATOR Oxygen Saturation 98% 11/22/2021 10:36 AM PERFECT BIND MACHINE OPERATOR Inhaled Oxygen Concentration - - Weight 99.8 kg (220 lb) 11/17/2021 11:59 AM PERFECT BIND MACHINE OPERATOR Height 185.4 cm (6' 1) 11/17/2021 11:59 AM PERFECT BIND MACHINE OPERATOR Body Mass Index 29.03 11/17/2021 11:59 AM PERFECT BIND MACHINE OPERATOR Plan of Treatment Health Maintenance Due Date [...] this topic Meningococcal Vaccine Aged Out No ineves markus eligible based on patient's age to complete this topic RSV Immunizations Under 20 Months Aged Out No longer eligible b ased on patient's age to complete this topic Medical Devices Implanted Type Area Stamp Collector Device Identifier Shelf Expiration Date Model / Serial / Lot Trifocal Intraocular Lens Implanted:Qty: 1 on 11/22/2021 by Jordan Sims MD at [facility] Left: Eye 03/29/2024 [id number] / [id number] / Insurance GENERIC - COMMERCIAL Care Teams Frame Operator Relationship Specialty [place] [address] [place] [address] PCP - General INTERNAL MEDICINE 11/22/21
--- OUTSIDE RECORDS SUMMARY | 2025-05-05 13:24 | XMS_ITS | Clinical Summary ---
Author Organization [facility] Address [address] [facility] [place] [address] Care Team Providers Care Marking Devices Assembler Name Role Phone Unavailable Primary Care Provider Unavailabl e Source Comments [facility],non-owned Affiliates and Associated Physician Practices is amultiple site organization consisting of ambulatory clinics and hospital sitesin [place], [place] and [place]. This disclosure is being madepursuant to the Care Everywhere program and may not contain all information available regarding this patient. Last updated 18.[facility] [employer] Allergies Active Allergy Reactions Criticality Noted Date [...] on file Legal Sex Male 1:43 PM STRIP CATCHER Gender Identity Not on file Sexual Orientation Not on file Last Filed Vital Signs Vital Sign Reading Time Taken Comments Blood Pressure 140/81 03/16/2021 12:23 PM CDT Pulse 76 03/16/2021 12:23 PM CDT Temperature 36.2 C (97.1 F) 12/08/2020 12:45 PM STRIP CATCHER Respiratory Rate 18 03/16/2021 12:23 PM CDT Oxygen Saturation 98% 03/16/2021 12:23 PM CDT Inhaled Oxygen Concentration - - Weight 103.9 kg (229 lb) 03/16/2021 12:23 PM CDT Height 185.4 cm (6' 1) 12/08/2020 12:45 PM STRIP CATCHER Body Mass Index 30.21 12/08/2020 12:45 PM STRIP CATCHER Plan of Treatment Health Maintenance Due Date [...] season) 2024 DEPRESSION SCREENING 10/30/2024 INFLUENZA VACCINE (#1) 2025 Respiratory Syncytial Virus (RSV) Vaccine Pt: [...] Subscriber ID:Not on file (Home) Address: [address] [place] [phone] Payer ID:Not on file Group ID:Not on file Type:Self Pay Address: [place], [place] * Guarantor: YANG ROSADO Account Type Relation to Patient Date of Phone Billing Address Personal/Family [address] [place] [phone] [employer] SELF PAY NO INSURANCE Member Subscriber Plan / Payer (Ef fective for All Dates) Name:Yang Rosado Member ID:Not on file Relation to Subscriber:Not on file Name:YANG ROSADO Subscriber ID:Not on file (Home) Address: [address] [place], [place] [phone] Payer ID:Not on file Group ID:Not on file Type:Self Pay Address: [place], [place] * Guarantor: YANG ROSADO Account Type Relation to Patient Date of Phone Billing Address Personal/Family [address] [place], [place] [phone] [employer] SELF PAY NO INSURANCE Member Subscriber Plan / Payer (Ef fective for All Dates) Name:Yang Rosado Member ID:Not on file Relation to Subscriber:Not on file Name:YANG ROSADO Subscriber ID:Not on file (Home) Address: [address] [place] [address] Payer ID:Not on file Group ID:Not on file Type:Self Pay Address: [place], [place] * Guarantor: YANG ROSADO Account Type Relation to Patient Date of Phone Billing Address Personal/Family [address] [place], [place] [phone] [employer] SELF PAY NO INSURANCE Member Subscriber Plan / Payer (Ef fective for All Dates) Name:Yang Rosado Member ID:Not on file Relation to Subscriber:Not on file Name:YANG ROSADO Subscriber ID:Not on file (Home) Address: [address] [place] [phone] Payer ID:Not on file Group ID:Not on file Type:Self Pay Address: [place], [place]
== END 2025-05-05 13:21 | disposition home or self-care (01) ==
LOC: ANHAUDIO 13:20
PROVIDERS: PCP Nurse Practitioner Family; Visit Provider Otolaryngology
DX: H90.3 Sensorineural hearing loss, bilateral (principal); H93.13 Tinnitus, bilateral; R56.9 Unspecified convulsions; H74.8X1 Other specified disorders of right middle ear and mastoid; Z97.4 Presence of external hearing-aid
CPT/HCPCS: 92557; 92567

== ENCOUNTER 2025-08-12 15:29 | Emergency (ER) | payer MEDICARE, SELFPAY ==
[2025-08-12 15:27] VITALS: BP 154/94; PULSE 111; RESP 17; TEMP 37.1; O2SAT 99
[2025-08-12 15:39] VITALS: PULSE 111
[2025-08-12 16:15] VITALS: BP 137/84; PULSE 103; RESP 23; O2SAT 96
--- NOTE | 2025-08-12 16:44 | ED.SEIZURE ---
HPI - Seizure General Chief Complaint: Seizure Stated Complaint: seizure Time Seen by Provider: 08/12/25 16:12 Source: patient and family Limitations: no limitations History of Present Illness HPI Narrative: Patient presents after having a seizure that was witnessed by son and reportedly lasted 45seconds. Son is not present currently; another family member is but they did not witness seizure. History of seizures. Had been running low on lamotrigine but was able to take PM dose and took AM dose after going to the pharmacy today to excelsior picker short course of additional. Also has clonazepam 0.5 BID PRN and one of these ODT was given prior to ems arrival. Patient had been in his baseline state of health today, went to the [facility] and the car wash. Had re-arranged his pill box. Had been postictal for EMS but at baseline now, per patient and family. No bowel/bladder incontinence but some mild tongue trauma. No upcoming appointments with his PCP (Jessica) or neurologist, Dr Marks through [facility]. Denies drinking alcohol recently. Sleep has been generally ok although he does note that he normally has to get up 2 times in the middle of the night to urinate and was up 4 times last night. Hospitalized 1 month ago and had temporarily been weened off the lamotrigine for the EEG he received and then placed back on this medication. No new meds. No dose changes. Seizure History: Yes (last one 2015 4 total) Related Data Home Medications ?Medication ?Instructions ?Recorded ?Confirmed ?Last Taken ?Type cholecalciferol (vitamin D3) 25 25 mcg PO DAILY 03/07/24 08/06/25 02/25/25 History mcg (1,000 unit) capsule multivitamin 1 tablet PO DAILY 03/07/24 08/06/25 02/25/25 History diclofenac sodium 1 % topical gel 4 g topical QID PRN 03/20/25 08/06/25 Unknown History clonazepam 0.5 mg disintegrating 0.5 mg PO BID PRN seizures 07/23/25 08/06/25 Unknown History tablet lamotrigine 100 mg tablet 300 mg PO BID 07/23/25 08/06/25 Unknown History Allergies Allergy/AdvReac Type Severity Reaction Status Date / Time Penicillins Allergy Severe Anaphylactic Verified 08/06/25 09:28 Shock [facility] Past Medical History Medical History GERD (gastroesophageal reflux disease) Chronic anemia Radiation proctitis Anemia Knee effusion, right Trigger finger, right ring finger Trigger finger, left ring finger Trigger finger, right middle finger Trigger finger, left middle finger Pain and swelling of right knee Hemorrhoid Sacral fracture Impacted cerumen of both ears Hx of malignant neoplasm of prostate Screening for malignant neoplasm of prostate Screening for malignant neoplasm of colon Obesity (BMI 30.0-34.9) Immunization due Elevated liver enzymes Prostate cancer Elevated PSA Abnormal liver function test Seizure disorder (~2015) Family History Family History Mother Diabetes mellitus Sibling Family history of cardiovascular disease Father Family history of kidney disease Social History Social History Social History: Caffeine-coffee daily Smoking packs per day: 1 Smoking cigarettes per day: 20.0 Years smoked: 10 Smoking pack-years: 10.00 Smoking status: Former smoker Tobacco type: cigarettes Second hand tobacco smoke exposure: No Smoking end date: 10/30/76 Alcohol intake: current Drinks per week: 3 Alcohol use details: rare Substance use: former Substance use type: does not use Other substance usage details: GUMMIES OCCASIONALLY Last use: 01/02/24 Do You Feel Safe in your Home?: Yes Lack of Transportation: No Lack of Food: Never True Current Housing: I Have Housing Concerned About Future Housing: No Difficulty Paying Gas/Electric Bills: No Difficulty Paying for Meds: No Currently Unemployed: No Education: Don't Know Difficulty w/ Childcare or Family Care: No Living arrangements: with family Occupation/Education: retired Additional occupation/education comments: [employer] work Gender identity (if verbalized by the patient): Male Spiritual care concerns: No Agree to blood products: Yes Exam Narrative: GENERAL: Well-appearing, well-nourished, and in no acute distress. HEAD: Normocephalic, atraumatic. EYES: Non injected, non icteric ENT: Nares clear, no rhinorrhea or epistaxis. Gross auditory acuity intact. Well healing laceration/bite on right lateral tongue; no active bleeding. NECK: Supple. No meningismus. CHEST: Speaking in full sentences. No respiratory distress. HEART: Mildly tachycardic Regular rate and rhythm. . ABDOMEN: Soft, nondistended. No rigidity or guarding. Not peritoneal EXTREMITIES: Normal range of motion. No lower extremity edema. SKIN: Warm, dry, no rash. NEURO: No focal deficits. Alert and oriented. Answering questions. Following commands. Normal speech without aphasia or dysarthria. PSYCH: Normal mood and affect. Course Vital Signs Vital signs: Vital Signs Temperature 98.7 F 08/12/25 15:27 Pulse Rate 111 H 08/12/25 15:27 Respiratory Rate 17 08/12/25 15:27 Blood Pressure 154/94 H 08/12/25 15:27 Pulse Oximetry 99 08/12/25 15:27 Oxygen Delivery Room Air 08/12/25 15:27 Temperature 98.7 F 08/12/25 18:07 Pulse Rate 105 H 08/12/25 18:07 Respiratory Rate 17 08/12/25 18:07 Blood Pressure 152/90 H 08/12/25 18:07 Pulse Oximetry 96 08/12/25 18:07 Oxygen Delivery Room Air 08/12/25 15:40 MDM - Seizure MDM Narrative Medical decision making narrative: Patient presents after having a seizure witnessed by son although he is not present for collateral information at the time of my examination. History of seizure disorder on lamotrigine 300mg BID which he was able to take last night and this morning (though had to go to the pharmacy this morning given he was out). Sees neurology through [facility]. Had been briefly off lamotrigine 1 month ago in anticipation of EEG but placed back on it and denies missing doses. Postictal initially for EMS but without prolonged state as he is at baseline now. No new medication changes or alcohol. Reports sleep being ok although notably had been up 4 times overnight to urinate rather than his typical 2. In the emergency department he is afebrile with vital signs notable for tachycardia and hypertension. Normocytic anemia, stable from previous. Marijuana on UDS. Ethanol negative. Urinalysis is concerning for an infection and given the fact that he has noted symptoms particularly considerable urinary frequency, reasonable to treat. No previous urine culture to guide therapy. Will give Bactrim. First dose in the ED. Rest of course prescribed. Stable for discharge otherwise. Differential Diagnosis Differential diagnosis: Likely intractable seizure disorder, focal seizure, generalized seizure, epileptic seizure, status epilepticus and other (breakthrough seizure; considered etiologies that lower seizure threshold) Lab Data Attestation: I reviewed the patient's lab results. 08/12/25 16:52 08/12/25 16:52 Labs: Lab Results 08/12/25 08/12/25 Range/Units 16:52 16:53 WBC 9.6 (4.5-10.0) K/mm3 RBC 4.29 L (4.6-6.20) M/mm3 Hgb 13.5 L (14.0-18.0) g/dL Hct 40.5 L (42.0-52.0) % MCV 94.4 (80-100) fl MCH 31.5 (26-34) pg MCHC 33.3 (32-36) g/dl RDW 13.2 (11.5-14.5) % Plt Count 211 (150-375) k/mm3 MPV 9.2 (7.4-10.4) fl Immature Gran % (Auto) 0.5 (0-0.5) % Neut % (Auto) 75.3 H (45.5-73.1) % Lymph % (Auto) 12.1 L (18.3-44.2) % [place] % (Auto) 10.6 H (2.6-8.5) % Eos % (Auto) 0.9 (0-4.4) % Baso % (Auto) 0.6 (0.2-1.2) % Lymph # (Auto) 1.16 (0.9-3.2) K/mm3 [place] # (Auto) 1.0 H (0.1-0.6) K/mm3 Eos # (Auto) 0.1 (0-0.3) K/mm3 Baso # (Auto) 0.1 (0.0-0.1) K/mm3 Abs Immat Gran (auto) 0.05 H (0.00-0.031) K/mm3 Absolute Neuts (auto) 7.2 H (1.3-6.7) K/mm3 Absolute Nucleated RBC 0.000 (0.0-0.012) K/mm3 Nucleated RBC % 0.0 (0.0-0.2) % Sodium 139 (137-145) mmol/L Potassium 4.0 (3.4-5.0) mmol/L Chloride 107 (98-107) mmol/L Carbon Dioxide 25 (22-30) mmol/L Anion Gap 7 (4-12) mmol/L BUN 16 D (9-20) mg/dL Creatinine 0.73 (0.7-1.3) mg/dL Estim Creat Clear Calc 93 ml/min Estimated GFR > 60 (59 - ) Glucose 102 (65-110) mg/dL Lactic Acid 1.3 (0.7-2.0) mmol/L Calcium 9.9 (8.4-10.2) mg/dL Magnesium 2.7 H (1.6-2.3) mg/dL Total Bilirubin 0.6 (0.2-1.3) mg/dL AST 23 (17-59) U/L ALT 14 (6-50) U/L Alkaline Phosphatase 87 (38-126) U/L Total Protein 8.4 H (6.3-8.2) g/dL Albumin 4.9 (3.5-5.1) g/dL Urine Color Yellow (Yellow) Urine Appearance Cloudy H (Clear) Urine pH 5.5 (5.0-9.0) Ur Specific [place] 1.018 (1.001-1.035) Urine Protein 1+ H (Negative) mg/dL Urine Glucose (UA) Negative (Negative) mg/dL Urine Ketones Trace H (Negative) mg/dL Ur Blood (Man) Negative (Negative) Urine Nitrate Positive H (Negative) Urine Bilirubin Negative (Negative) Urine Urobilinogen 0.2 (<2.0) mg/dL Add Ur Microanalysis Reviewed Leukocyte Esterase Rfl Trace H (Negative) ARSH/UL Urine RBC 0-2 (0-2) /hpf Urine WBC 6-10 H (0-3) /hpf Ur Squamous Epith Cells None seen (Few) /hpf Urine Bacteria 4+ H /hpf Urine Casts 11-20 Urine Opiates Screen Negative (Negative) Urine Methadone Screen Negative (Negative) Ur Barbiturates Screen Negative (Negative) Lamotrigine 4.1 (2.0-20.0) ug/mL Ur Phencyclidine Scrn Negative (Negative) Ur Amphetamine Screen Negative (Negative) U Benzodiazepines Scrn Negative (Negative) Clonazepam <5 L (20-70) ng/mL Urine Cocaine Screen Negative (Negative) U Cannabinoids Screen Positive A (Negative) Ethyl Alcohol < 10 (<10) mg/dL Discharge Plan Discharge Clinical Impression: Seizure, Normocytic anemia, Marijuana use, Urinary tract infection in male Patient Disposition: Home Condition: Stable Instructions: Antibiotic Form, Urinary Tract Infection in Men (DC), Recurrent Seizures in Adults (ED), Anemia (ED) Additional Instructions: He you do have evidence of urinary tract infection. You received your 1st dose of antibiotic in the emergency department the rest the course has been prescribed. Take the entire course. Return the emergency department any new or worsening symptoms. Continue taking your seizure medications as prescribed in the interim but follow-up with your neurologist as well as primary care physician to discuss this breakthrough seizure and if a change in medications is recommended. Patient Language: Liberian Prescriptions: New sulfamethoxazole-trimethoprim [Bactrim DS] 800-160 mg tablet 1 tablet PO Q12H 7 Days Qty: 14 0RF No Action clonazepam 0.5 mg tablet,disintegrating 0.5 mg PO BID PRN (Reason: seizures) lamotrigine 100 mg tablet 300 mg PO BID cyclobenzaprine 5 mg tablet 5 mg PO TID PRN (Reason: muscle spasm) Qty: 30 0RF diclofenac sodium 1 % gel 4 g topical QID PRN Rx Instructions: apply to knee cholecalciferol (vitamin D3) 25 mcg (1,000 unit) capsule 25 mcg PO DAILY multivitamin Tablet 1 tablet PO DAILY pantoprazole 40 mg tablet,delayed release (DR/EC) 40 mg PO QAM Qty: 30 11RF ropinirole 0.25 mg tablet See Rx Instructions .ROUTE .COMPLEX Qty: 30 12RF Dose Instruction: TAKE ONE TABLET BY MOUTH ONCE DAILY 1-3 HOURS PRIOR TO BEDTIME DIRECTED Rx Instructions: TAKE ONE TABLET BY MOUTH ONCE DAILY 1-3 HOURS PRIOR TO BEDTIME DIRECTED ferrous sulfate 325 mg (65 mg iron) tablet 325 mg PO DAILY Qty: 90 1RF rosuvastatin 20 mg tablet See Rx Instructions .ROUTE .COMPLEX Qty: 90 1RF Dose Instruction: TAKE ONE TABLET BY MOUTH EVERY DAY Rx Instructions: TAKE ONE TABLET BY MOUTH EVERY DAY gabapentin 300 mg capsule See Rx Instructions .ROUTE .COMPLEX Qty: 180 1RF Dose Instruction: TAKE 2 CAPSULES BY MOUTH AT BEDTIME Rx Instructions: TAKE 2 CAPSULES BY MOUTH AT BEDTIME Follow-up/Referrals: Alesia Serrato APRN [Primary Care Provider, Internal Medicine] Stand Alone Forms: Work/School Release IP Time of Disposition: 17:50
[2025-08-12 17:00] VITALS: BP 142/85; PULSE 102; RESP 20; O2SAT 97
[2025-08-12 17:03] LABS: Hematocrit 40.5 % (42.0-52.0); Hemoglobin 13.5 g/dL (14.0-18.0); Immature Granulocyte Percent A 0.5 % (0-0.5); Lymphocytes Absolute Auto 1.16 K/mm3 (0.9-3.2); Mean Corpuscular HGB Conc 33.3 g/dl (32-36); Mean Corpuscular Hemoglobin 31.5 pg (26-34); Mean Corpuscular Volume 94.4 fl (80-100); Nucleated Red Blood Cells Absolute Auto 0.000 K/mm3 (0.0-0.012); Nucleated Red Blood Cells Perc 0.0 % (0.0-0.2); Platelet Count Result 211 k/mm3 (150-375); Red Blood Count 4.29 M/mm3 (4.6-6.20); White Blood Count 9.6 K/mm3 (4.5-10.0)
[2025-08-12 17:17] LABS: Alanine Aminotransferase 14 U/L (6-50); Albumin Level 4.9 g/dL (3.5-5.1); Alkaline Phosphatase 87 U/L (38-126); Anion Gap 7 mmol/L (4-12); Aspartate Amino Transferase 23 U/L (17-59); Bilirubin,Total 0.6 mg/dL (0.2-1.3); Blood Urea Nitrogen 16 mg/dL (9-20); Calcium 9.9 mg/dL (8.4-10.2); Carbon Dioxide 25 mmol/L (22-30); Chloride 107 mmol/L (98-107); Estimated CRCL calculation 93 ml/min; Estimated Glomerular Filt Rate > 60; Glucose 102 mg/dL (65-110); Magnesium 2.7 mg/dL (1.6-2.3); Potassium 4.0 mmol/L (3.4-5.0); Sodium 139 mmol/L (137-145); Total Protein 8.4 g/dL (6.3-8.2)
[2025-08-12 17:32] LABS: Cannabinoid Screen Urine Positive (Negative)
--- OUTSIDE RECORDS SUMMARY | 2025-08-12 17:33 | XMS_ITS | Clinical Summary ---
Author Organization [facility] Address [address] [place] [id number] Care Team Providers Care Interior Designer Name Role Phone Allen Juarez DO Primary Care Provider [phone] Allergies Active Allergy Reactions Criticality Noted Date [...] on file Legal Sex Male 9:51 AM SUBSTANCE ABUSE NURSE Gender Identity Not on file Sexual Orientation Not on file Last Filed Vital Signs Vital Sign Reading Time Taken Comments Blood Pressure 147/80 11/22/2021 10:36 AM SUBSTANCE ABUSE NURSE Pulse 75 11/22/2021 10:36 AM SUBSTANCE ABUSE NURSE Temperature 36.2 C (97.2 F) 11/22/2021 9:21 AM SUBSTANCE ABUSE NURSE Respiratory Rate 18 11/22/2021 9:21 AM SUBSTANCE ABUSE NURSE Oxygen Saturation 98% 11/22/2021 10:36 AM SUBSTANCE ABUSE NURSE Inhaled Oxygen Concentration - - Weight 99.8 kg (220 lb) 11/17/2021 11:59 AM SUBSTANCE ABUSE NURSE Height 185.4 cm (6' 1) 11/17/2021 11:59 AM SUBSTANCE ABUSE NURSE Body Mass Index 29.03 11/17/2021 11:59 AM SUBSTANCE ABUSE NURSE Plan of Treatment Health Maintenance Due Date Last Done Comments Colorectal Cancer Screening Colonoscopy (10 Years) 1950 Hepatitis C 1969 Zoster Vaccines (1 of 2) 2001 Annual Medicare Wellness Visit 2016 DTaP, Tdap and Td Vaccines ( 1 - Tdap) 12/31/2016 12/30/2016 Pneumococcal Vaccine: 50+ Years (2 of 2 - PCV) 12/30/2017 12/30/2016 COVID-19 Vaccine (4 - 2024-2 6 season) 2025 08/28/2021, 01/18/2021, 12/17/2020 Influenza Adult (#1) 2025 08/06/2019 RSV Immunization or 60+ Years (1 - 1-dose 75+ series) 2026 Hepatitis A Vaccines Aged Out No long er eligible based on patient's age to complete this topic Meningococcal B Vaccine Aged Out No l onger eligible based on patient's age to complete this topic Meningococcal Vaccine Aged Out No nieves markus eligible based on patient's age to complete this topic RSV Immunizations Under 20 Months Aged Out No longer eligible b ased on patient's age to complete this topic Medical Devices Implanted Type Area Senior Corporate Recruiter Device Identifier Shelf Expiration Date Model / Serial / Lot Trifocal Intraocular Lens Implanted:Qty: 1 on 11/22/2021 by Jordan Sims MD at [facility] Left: Eye 03/29/2024 [id number] / [id number] / Insurance GENERIC - COMMERCIAL [employer] MEDICARE Care Teams Interior Designer Relationship Specialty Start Date End Date Allen Juarez DO [address] [phone] PCP - General INTERNAL MEDICINE 11/22/21
--- OUTSIDE RECORDS SUMMARY | 2025-08-12 17:33 | XMS_ITS | Clinical Summary ---
Author Organization [facility] Address [address] [place] [address] Care Team Providers Care Stave Machine Tender Name Role Phone Unavailable Primary Care Provider Unavailabl e Source Comments [facility],non-owned Affiliates and Associated Physician Practices is amultiple site organization consisting of ambulatory clinics and hospital sitesin [place], [place], [place] and [place]. This disclosure is being madepursuant to the Care Everywhere program and may not contain all information available regarding this patient. Last updated 18.[facility] [employer] Allergies Active Allergy Reactions Criticality Noted Date [...] on file Legal Sex Male 1:43 PM WHISKEY FILTERER Gender Identity Not on file Sexual Orientation Not on file Last Filed Vital Signs Vital Sign Reading Time Taken Comments Blood Pressure 140/81 03/16/2021 12:23 PM CDT Pulse 76 03/16/2021 12:23 PM CDT Temperature 36.2 C (97.1 F) 12/08/2020 12:45 PM WHISKEY FILTERER Respiratory Rate 18 03/16/2021 12:23 PM CDT Oxygen Saturation 98% 03/16/2021 12:23 PM CDT Inhaled Oxygen Concentration - - Weight 103.9 kg (229 lb) 03/16/2021 12:23 PM CDT Height 185.4 cm (6' 1) 12/08/2020 12:45 PM WHISKEY FILTERER Body Mass Index 30.21 12/08/2020 12:45 PM WHISKEY FILTERER Plan of Treatment Health Maintenance Due Date [...] AAA SCREENING 2016 SCREENING FOR DIABETES 12/08/2020 DEPRESSION SCREENING 10/30/2024 COVID-19 VACCINE (1 - 2023-2 5 season) 2025 INFLUENZA VACCINE (#1) 2025 Respiratory Syncytial Virus [...] ROSADO Subscriber ID:Not on file (Home) Address: [address] [place] [phone] Payer ID:Not on file Group ID:Not on file Type:Self Pay Address: [place], [place] * Guarantor: YANG ROSADO Account Type Relation to Patient Date of Phone Billing Address Personal/Family [address] [place] [phone] [employer] SELF PAY NO INSURANCE Member Subscriber Plan / Payer (Ef fective for All Dates) Name:Yang Rosado Member ID:Not on file Relation to Subscriber:Not on file Name:YANG ROSADO Subscriber ID:Not on file (Home) Address: [address] [place], [place] [address] Payer ID:Not on file Group ID:Not on file Type:Self Pay Address: [place], [place] * Guarantor: YANG ROSADO Account Type Relation to Patient Date of Phone Billing Address Personal/Family [address] [place], [place] [phone] [employer] SELF PAY NO INSURANCE Member Subscriber Plan / Payer (Ef fective for All Dates) Name:Yang Rosado Member ID:Not on file Relation to Subscriber:Not on file Name:YANG ROSADO Subscriber ID:Not on file (Home) Address: [address] [place] [address] Payer ID:Not on file Group ID:Not on file Type:Self Pay Address: [place], [place] * Guarantor: YANG ROSADO Account Type Relation to Patient Date of Phone Billing Address Personal/Family [address] [place], [place] [phone] [employer] SELF PAY NO INSURANCE Member Subscriber Plan / Payer (Ef fective for All Dates) Name:Yang Rosado Member ID:Not on file Relation to Subscriber:Not on file Name:YANG ROSADO Subscriber ID:Not on file (Home) Address: [address] [place] [phone] Payer ID:Not on file Group ID:Not on file Type:Self Pay Address: [place], [place]
--- OUTSIDE RECORDS SUMMARY | 2025-08-12 17:33 | XMS_ITS | Clinical Summary ---
Author Organization [facility] Address [address] [place] [address] Phone Care Team Providers Care Link Trainer Mechanic Name Role Phone Alesia Serrato NP Primary Care Provider [phone] Allergies Active Allergy Reactions Criticality Noted Date Comments Penicillins Medications diphenoxylate-atrop ine (LOMOTIL) 2.5-0.025 mg per tablet [address] (PROTONIX) 40 mg EC tablet 4 Active diazePAM (DIASTAT ACUDIAL) rectal kit (20 mg) 4 Active gabapentin (NEURONTIN) 300 mg capsule 2 capsules (600 mg total) 4 Active neomycin-polymyxin- dexAMETHasone (MAXITROL) 3.5mg/mL-10,000 unit/mL-0.1 % ophthalmic suspension 5 Active clonazePAM (KlonoPIN) 0.5 mg disintegrating tablet Take 1 tablet (0.5 mg total) by mouth 2 (two) times a day as needed for seizures 10 tablet 5 Active lamoTRIgine (LaMICtal) 100 mg tabletIndications:S eizure (HCC) Take 3 tablets (300 mg total) by mouth every morning 270 tablet 1 5 05/29/20 26 Active rosuvastatin (CRESTOR) 20 mg tablet Take 1 tablet (20 mg total) by mouth nightly 5 Active rOPINIRole (REQUIP) 0.25 mg tablet Take 1 tablet (0.25 mg total) by mouth nightly Active Active Problems Problem Noted Date Diagnosed Date NAFLD (nonalcoholic fatty liver disease) 021 Overview (04/24/2024): 03/16/21 Fibroscan CAP 253, LSM 7.9 kPa Seizure 07/15/2016 Sensorineural hearing loss (SNHL) of both ears 0 01/16/2013 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 Encounters Date Type Department Care Team Description 07/16/2025 8:26 AM CDT - 07/20/2025 3:01 PM CDT Hospital Encounter [address] [address] Gerardo Marks III, MD Discharge Disposition: Discharge to home or self care 07/16/2025 8:00 AM CDT Ancillary Procedure [address] [address] Stacey Shannon Seizure (HCC) 07/08/2025 Telephone [facility] [address] [place] [address] Margaret Degroot 05/30/2025 Telephone [facility] [address] [place] [address] Ivanna Garcias 05/29/2025 3:30 PM CDT Office Visit [facility] Medicine Epilepsy [facility] 6th [place] [address] [place] [address] Gerardo Marks III, MD Seizure (HCC) from Last 3 Months Immunizations Immunization Administration Dates Next Due Influenza, Quadrivalent, Split, Intramuscular Pfizer SARS-CoV-2 Monovalent Vaccination (12+ Yrs) TURCIOS-READY TO USE 06/15/2022 Pneumococcal Conjugate PCV 13 08/09/2019 Pneumococcal Polysaccharide PPV23 12/30/2016 TD Preservative Free 12/30/2016 Medical History Medical History Date Comments Seizure (HCC) 07/15/2016 Social History Tobacco Use Types Packs/Day Years Used Date Smoking Tobacco: Former Tobacco Cessation:Counseling Given: No Personal Safety Answer Date Recorded Have you ever been in or are you currently in a harmful physical or emotional relationship or is someone making you feel afraid or unsafe? Denies 07/16/2025 Sex and Gender Information Value Date Recorded Sex Assigned at Not on file Legal 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 [employer] Gender Identity Not on file Sexual Orientation Not on file Obstetrics History Last Filed Vital Signs Vital Sign Reading Time Taken Comments Blood Pressure 134/70 07/20/2025 8:30 AM CDT Pulse 81 07/20/2025 8:30 AM CDT Temperature 36.7 C (98.1 F) 07/20/2025 8:30 AM CDT Respiratory Rate 16 07/20/2025 8:30 AM CDT Oxygen Saturation 97% 07/20/2025 8:30 AM CDT Inhaled Oxygen Concentration - - Weight 97.5 kg (215 lb) 07/16/2025 9:50 AM CDT Height 185.4 cm (6' 1) 07/16/2025 9:50 AM CDT Body Mass Index 28.37 07/16/2025 9:50 AM CDT Plan of Treatment Health Maintenance Due Date Last Done Comments Colon Cancer Screening-Colonoscopy 1950 Depression Screening 1950 Hepatitis C Screening 1950 Hepatitis B Screening 1969 Abdominal Aortic Aneurysm (A AA) Screen 2016 Well Visit 65+ 2016 DTaP/Tdap/Td Vaccine (1 - Tdap) 12/31/2016 7 Zoster Vaccine (2 of 2) 10/02/2024 08/07/2024 Covid-19 Vaccine (5 - 2024-2 6 season) 2025 06/15/2022, 08/28/2021, 01/18/2021, Additional history exists Influenza Vaccine (#1) 2025 08/06/2024, 2018 Fall Risk Assessment 07/20/2026 07/20/2025 Pneumococcal vaccine 65+ Completed 08/09/2019, 0312/2016 Procedures Procedure Name Priority Date/Time Associated Diagnosis Comments CONTINUOUS VIDEO EEG Routine 07/19/2025 10:12 AM CDT Seizure (HCC) from Last 3 Months Results * Continuous Video EEG -[facility] (07/19/2025 10:12 AM CDT) Anatomical Region Laterality Modality EEG Narrative 07/22/2025 5:44 PM CDT Video-EEG Report Patient Name: Yang Rosado [facility] Medical Record Number (MRN): [id number] [facility] Record: [id number] Date of (): 1950 EEG Date: 07/16/2025 Ordering Provider: Gerardo Marks III, MD CC: Alesia Serrato Start Time: 07/16/2025 10:09:11 AM End Time: 07/20/2025 12:42:42 PM Introduction: Mr. Rosado is a 74 y.o. male with a history of temporal lobe epilepsy presents after recurrent seizures while taking ASMs. EEG was performed to evaluate for seizures. This is a report of continuous video-EEG monitoring. High definition digital video and digital EEG were recorded continuously with a [employer] EEG acquisition system. This was a 32 channel EEG with additional anterior temporal electrodes. Electrodes were placed with collodion following the 10/20 International System. The patient was monitored and observed continuously by technical personnel. Digital seizure and spike detection were utilized during the recording. EEG Description: The awake background included an 11 Hz posterior rhythm which attenuated with eye opening and activity. During drowsiness, identified by ocular signs and alpha attenuation, there was intermittent, diffuse, asynchronous theta activity admixed with 2-4 Hz polymorphic frontotemporal delta activity. As the record progressed, stage II sleep was identified by vertex waves, sleep spindles and K-complexes. During the recording, there were changes consistent with light and deep sleep stages. Hyperventilation and photic strobe stimulation were not performed. There were no focal, lateralized or epileptiform abnormalities. As the recording progressed, there were rarely discharges with low amplitude sharply waves over the right temporal region in epoch 2. The EKG showed a normal rate and rhythm. Daily Video-EEG Description: Epoch 1: 07/16/2025 10:09:11 AM - 07/17/2025 10:09:11 AM The interictal EEG was as described above. There were no clinical or electrographic events. Epoch 2: 07/17/2025 10:09:11 AM - 07/18/2025 10:09:11 AM The interictal EEG was as described above. As the recording progressed, there were rarely discharges with low amplitude sharply waves over the right temporal region. There were no clinical or electrographic events. Epoch 3: 07/17/2025 10:09:11 AM - 07/18/2025 10:09:11 AM The interictal EEG was as described above. There were two focal electro-clinical seizures captured, which secondarily generalized. Seizure #1 occurred 5:03:27 AM on 07/19. Clinically, the awoke from sleep. At 5:04:25 AM, he had vocalization, followed by RUE posturing, and then progressing into generalized tonic-clonic movement. After the seizure end, the patient wad confused. Electrographically, there was theta focal slowing over the right temporal region. At 5:03:50 AM, there was delta slowing over the left temporal region, followed by rhythmic delta range activity, with evolution in frequency, morphology, and field, better-developed over the left temporal region, which was finally obscured EMG and movement artifact at 5:04:27 AM. The seizure ended at around 5:05:31 AM on 07/19 and lasted approximately 2 minutes and 4 seconds. Seizure #2 occurred 6:35:40 AM jocelyn 07/19. Clinically, the patient awoke from sleep, followed by a head clonic movement at 6:36:15 AM, quickly followed by tonic movement, LUE posturing, and vocalization, and then progressing into generalized tonic-clonic movement. After seizure end, the patient was confused. Electrographically, the seizure had onset of rhythmic delta range activity over the right temporal region, with evolution in frequency, morphology, and field, better-developed over the right temporal region, and was obscured EMG and movement artifact at 6:36:18 AM. The seizure ended at around 6:40:22 AM on 07/19 and lasted approximately 4 minutes and 42 seconds. Epoch 4: 07/19/2025 10:09:11 AM - 07/20/2025 10:09:11 AM The interictal EEG was as described above. There were six focal electro-clinical seizures captured, one of which which secondarily generalized. Seizure #3 occurred at 1:20:31 PM. Clinically, the patient lay in bed with eyes closed with brief leg movement, followed by oral automatism, left gaze deviation, and head turning to the left. At 1:21:24 PM, the patient had left hand myoclonus, followed by head turning, vocalization, and LUE posturing, with final progression into generalized tonic-clonic movement. After seizure termination, the patient was confused. Electrographically, the seizure had onset of delta slowing over the right temporal region, followed by rhythmic delta range activity, with evolution in frequency, morphology, and field, better-developed over the right temporal region, obscured by EMG and movement artifact at 1:21:28 PM. The seizure ended at around 1:22:39 PM on 07/19 and lasted approximately two minutes and 8 seconds. Seizures #4 to #8 occurred during the remainder of the recording, without secondary generalization. The event button was not pushed. Clinically, in seizure #4, he had oral automatisms and right UE automatisms, progressing to torso and left hand irregular movements. He also had urinary incontinence and tachycardia. There were no significant clinical associations for seizures #5 to #8 except for arousal, blinking, and tachycardia. Epoch 5: 07/20/2025 10:09:11 AM - 07/20/2025 12:42:42 PM The interictal EEG was as described above. There were no clinical or electrographic events. Interpretation: Eight focal electro-clinical seizures were captured with right temporal onset, three of which secondarily generalized. The interictal EEG in the awake, drowsy, and asleep states is abnormal due to focal epileptiform discharges over the right temporal region, and rare independent left temporal epileptiform discharges Focal epileptiform discharges are typically seen in patients with a history of partial seizures. By signing this report, the attending Electroencephalographer certifies that he/she personally reviewed the electrodiagnostics study and has edited this report to fully conform with his/her intent. Signing Attending: Gerardo Marks III, MD Gerardo Marks III, MD NEUROLOGY ORDERABLES Fin al Result from Last 3 Months Insurance [employer] MEDICARE HMO [employer] MED[employer]ARE HMO Advance Directives For more information, please contact: [phone] * Full Code (Latest Code Status on File) Date Activated Date Inactivated Comments 07/16/2025 8:43 AM 07/20/2025 7:01 PM Care Teams Link Trainer Mechanic Relationship Specialty Start Date End Date Alesia Serrato NP [address] [place] [address] PCP - General Family Medicine 12/24/24
[2025-08-12 17:44] LABS: Add Urine Microscopic? YES; Appearance Urine Cloudy (Clear); Glucose Urine UA Negative (Negative); Leukocyte Esterase Ur Trace LEU/UL (Negative); Need Manual Microscopic Reviewed; Nitrate Urine Positive (Negative); Specific Grav Ur 1.018 (1.001-1.035)
[2025-08-12] MEDS: SULFAMETHOXAZOLE/TRIMETHOPRIM 800/160 MG DS TABLET 1 TAB PO (18:05)
[2025-08-12 18:07] VITALS: BP 152/90; PULSE 105; RESP 17; TEMP 37.1; O2SAT 96
== END 2025-08-12 18:22 | disposition home or self-care (01) ==
PROVIDERS: Emergency Provider Student in an Organized Health Care Education/Training Program; PCP Nurse Practitioner Family
DX: G40.909 Epilepsy, unspecified, not intractable, without status epilepticus (principal); N39.0 Urinary tract infection, site not specified; D64.9 Anemia, unspecified; F12.90 Cannabis use, unspecified, uncomplicated; Z87.891 Personal history of nicotine dependence
CPT/HCPCS: 36415; 80053; 80175; 80299; 80307; 81001; 82077; 83605; 83735; 85025; 87086; 87147; 87186; 99284; A9270